=== PATIENT | male | born 1985 | race Caucasian/White ===

== ENCOUNTER 2016-08-22 13:08 | Emergency (ER) | payer OTHER ==
[2016-08-22 13:57] VITALS: BP 125/74
--- NOTE | 2016-08-22 14:27 | UC ---
FLU HPI - History of Current Complaint Chief Complaint: UCGeneralIllness Stated Complaint: FEVER,VOMITING Time Seen by Provider: 08/22/16 14:03 Hx Obtained From: Patient, Family/Teletypewriter Operator Onset/Duration: Gradual Onset - has had cough and fever for 2 days, vomited after dinner last bernie. is keeping gatorade down, not eating since lkast bernie. NO longer nauseous, but still coughing - Allergy/Home Medications Allergies/Adverse Reactions: Allergies Allergy/AdvReac Type Severity Reaction Status Date / Time Carbamazepine [From Tegretol] Allergy Unknown Unknown Verified 08/22/16 13:46 Reaction Details Diazepam [From Valium] Allergy Unknown Unknown Verified 08/16/15 13:07 Reaction Details Phenobarbital Allergy Unknown Unknown Verified 08/16/15 13:07 Reaction Details Phenytoin [From Dilantin] Allergy Unknown Unknown Verified 08/16/15 13:07 Reaction Details Home Medications: Home Medications Guaifenesin-Codeine [Coditussin AC 200-10 mg/5Ml] 08/22/16 [History] Proair Hfa 08/22/16 [History] Topiramate TAB(*) [Topamax 100 MG(*)] 100 mg PO BID 08/22/16 [History Confirmed 08/22/16] PMH/Surg Hx/FS Hx/Imm Hx Previously Healthy: Yes Endocrine History Of: Denies: Diabetes, Thyroid Disease Cardiovascular History Of: Denies: Cardiac Disorders, Hypertension, Pacemaker/ICD Respiratory History Of: Reports: COPD, Asthma, Bronchitis - 04/01/15 GI/ History Of: Denies: Ulcer Neurological History Of: Reports: Seizures - Surgical History Surgical History: Yes Surgery Procedure, Year, and Place: RIGHT ELBOW fracture repair - Family History Known Family History: Positive: None - Social History Occupation: Disabled Lives: With Family - aunt Alcohol Use: Occasionally Alcohol Amount: few times per month Substance Use Type: Marijuana Smoking Status (MU): Current Every Day Smoker Type: Cigarettes Amount Used/How Often: 1-2 PPD Length of Time of Smoking/Using Tobacco: 15 years Have You Smoked in the Last Year: Yes Cessation Counseling: Patient Advised to Stop - Immunization History Most Recent Influenza Vaccination: 2016 Most Recent Tetanus Shot: unknown Most Recent Pneumonia Vaccination: none Review of Systems Constitutional: Fever Skin: Negative ENT: Negative Respiratory: Cough Cardiovascular: Negative Gastrointestinal: Vomiting Neurovascular: Negative Musculoskeletal: Negative Neurological: Negative Psychological: Negative All Other Systems Reviewed And Are Negative: Yes Physical Exam Triage Information Reviewed: Yes Appearance: Well-Appearing, No Pain Distress, Well-Nourished Vital Signs: Initial Vital Signs Temp 100.5 F 08/22/16 13:48 Pulse 124 08/22/16 13:48 Resp 16 08/22/16 13:48 BP 125/74 08/22/16 13:48 Pulse Ox 100 08/22/16 13:48 Eyes: Positive: Conjunctiva Clear Neck exam: Normal Neck: Positive: No Lymphadenopathy Respiratory: Positive: No respiratory distress, Crackles, Wheezing - mild exp scattered wheezing productive cough Cardiovascular Exam: Normal Abdominal Exam: Normal Abdomen Description: Positive: Nontender, No Organomegaly, Soft Bowel Sounds: Positive: Present Neurological Exam: Normal Neurological: Positive: Alert Psychological Exam: Normal Skin Exam: Normal Flu Course/Dx - Differential Dx/Diagnosis Differential Diagnosis/HQI/PQRI: Bronchitis, Influenza, Pneumonia, Upper Respiratory Infection Provider Diagnoses: bronchitis Discharge - Discharge Plan Condition: Stable Disposition: HOME Prescriptions: Azithromycin TAB* [Zithromax TAB (Z-LÓPEZ) 250 mg #6 tabs] 250 mg PO DAILY #6 tab Guaifenesin-Codeine [Cheratussin AC 100-10 mg/5Ml] 1 teasp PO Q6HR PRN #120 ml MDD 20 ml PRN Reason: Cough Patient Education Materials: Acute Bronchitis (ED) Referrals: Butch Reyes MD [Primary Care Provider] - 2 Days (for recheck) Additional Instructions: use ventolin inhaler: 2 puffs 4 times a day Use flovent inhaler as directed Take zithromax antibiotic as prescribed Use tylenol 1000mg every 6 hours as needed for fever stay on bland diet today and drink plenty of fluids return here or ER if problems worsen at any time
== END 2016-08-22 15:28 | disposition home or self-care (01) ==
LOC: UCEAST 13:08
DX: J40 Bronchitis, not specified as acute or chronic (principal); Z88.8 Allergy status to other drugs, medicaments and biological substances; F17.210 Nicotine dependence, cigarettes, uncomplicated
CPT/HCPCS: 87502; 99202; G0463

== ENCOUNTER 2016-08-26 15:18 | Emergency (ER) | payer OTHER ==
[2016-08-26] MEDS: NS 0.9% 1000 ML* 2,000 ML IV ONE ×2 (17:34→19:02)
[2016-08-26 19:28] LABS: Hematocrit 40 % (42-52); Hemoglobin 13.2 g/dl (14.0-18.0); Mean Corpuscular HGB Conc 33 g/dl (31-36); Mean Corpuscular Hemoglobin 30 pg (27-31); Mean Corpuscular Volume 90 fL (80-94); Mean Platelet Volume 9 um3 (7.4-10.4); Red Blood Count 4.39 10^6/ul (4.0-5.4); Red Cell Distribution Width 15 % (10.5-15); White Blood Count 7.1 10^3/ul (3.5-10.8)
[2016-08-26 19:38] LABS: Albumin 3.7 g/dL (3.2-5.2); BUN/Creatinine Ratio 22.5 (8-20); Calcium 9.2 mg/dL (8.6-10.3); EGFR African American 164.3 (>60); EGFR Non-African American 127.8 (>60); Globulin 3.9 g/dL (2-4); Total Bilirubin 0.3 mg/dL (0.2-1.0); Total Protein 7.6 g/dL (6.4-8.9)
--- NOTE | 2016-08-26 19:43 | ED ---
Complex/Multi-Sys Presentation - HPI Summary HPI Summary: Patient is referred to the ED for evaluation after lab work done at his PCP's office revealed hyponatremia and elevated depakote levels. He is accompanied by his caregiver who share in the report of his history. He has been taking antibiotics for bronchitis for four days. He has a history of hyponatremia. He is asymptomatic without dizziness, fever, DON[place]UE, N/V/D. - History Of Current Complaint Chief Complaint: EDGeneral Time Seen by Provider: 08/26/16 16:37 Hx Obtained From: Patient, Family/Thread Spooler Onset/Duration: Gradual Onset Timing: Constant Severity Currently: None Severity Initially: Mild Associated Signs And Symptoms: Positive: Recent Medication Changes - his dosing is being adjusted and monitored by his PCP - Allergies/Home Medications Allergies/Adverse Reactions: Allergies Allergy/AdvReac Type Severity Reaction Status Date / Time Carbamazepine [From Tegretol] Allergy Unknown Unknown Verified 08/22/16 13:46 Reaction Details Diazepam [From Valium] Allergy Unknown Unknown Verified 08/16/15 13:07 Reaction Details Phenobarbital Allergy Unknown Unknown Verified 08/16/15 13:07 Reaction Details Phenytoin [From Dilantin] Allergy Unknown Unknown Verified 08/16/15 13:07 Reaction Details PMH/Surg Hx/FS Hx/Imm Hx Endocrine/Hematology History: Denies: Hx Diabetes, Hx Thyroid Disease Cardiovascular History: Denies: Hx Hypertension, Hx Pacemaker/ICD Respiratory History: Reports: Hx Asthma, Hx Chronic Obstructive Pulmonary Disease (COPD) GI History: Denies: Hx Ulcer Sensory History: Denies: Hx Hearing Aid Neurological History: Reports: Hx Headaches, Hx Seizures Psychiatric History: Denies: Hx Panic Disorder - Surgical History Surgery Procedure, Year, and Place: RIGHT ELBOW fracture repair Infectious Disease History: No Infectious Disease History: Denies: Hx Clostridium Difficile, Hx Hepatitis, Hx Human Immunodeficiency Virus (HIV), Traveled Outside the [place] in Last 30 Days - Family History Known Family History: Positive: None - Social History Occupation: Disabled Lives: [place] Alcohol Use: Occasionally Alcohol Amount: few times per month Substance Use Type: Reports: Marijuana Hx Tobacco Use: Yes Smoking Status (MU): Current Every Day Smoker Type: Cigarettes Amount Used/How Often: 1-2 PPD Length of Time of Smoking/Using Tobacco: 15 years Have You Smoked in the Last Year: Yes Cessation Counseling: Patient Advised to Stop Review of Systems All Other Systems Reviewed And Are Negative: Yes Physical Exam Triage Information Reviewed: Yes Vital Signs On Initial Exam: Initial Vitals Temp Pulse Resp BP Pulse Ox 98.1 F 97 20 115/75 98 08/26/16 15:20 08/26/16 15:20 08/26/16 15:20 08/26/16 15:20 08/26/16 15:20 Vital Signs Reviewed: Yes Appearance: Positive: Well-Appearing, No Pain Distress, Thin Skin: Positive: Warm, Skin Color Reflects Adequate Perfusion, Dry, Soft Head/Face: Positive: Normal Head/Face Inspection Eyes: Positive: EOMI, MASOUD, Conjunctiva Clear ENT: Positive: Hearing grossly normal, Pharynx normal Neck: Positive: Supple, Nontender, No Lymphadenopathy Respiratory/Lung Sounds: Positive: Clear to Auscultation, Breath Sounds Present Cardiovascular: Positive: RRR Abdomen Description: Positive: Nontender, Soft Bowel Sounds: Positive: Present Musculoskeletal: Negative: Edema Left, Edema Right Neurological: Positive: Sensory/Motor Intact, Alert, Oriented to Person Place, Time, NV Bundle Intact Distally, Normal Gait Psychiatric: Positive: Affect/Mood Appropriate AVPU Assessment: Alert Diagnostics - Vital Signs Vital Signs Temp Pulse Resp BP Pulse Ox 08/26/16 15:20 98.1 F 97 20 115/75 98 - Laboratory Lab Results: Lab Results 08/26/16 Range/Units 16:48 WBC 7.1 (3.5-10.8) 10^3/ul RBC 4.39 (4.0-5.4) 10^6/ul Hgb 13.2 L (14.0-18.0) g/dl Hct 40 L (42-52) % MCV 90 (80-94) fL MCH 30 (27-31) pg MCHC 33 (31-36) g/dl RDW 15 (10.5-15) % Plt Count 204 (150-450) 10^3/ul MPV 9 (7.4-10.4) um3 Neut % (Auto) 81.0 (38-83) % Lymph % (Auto) 6.4 L (25-47) % [place] % (Auto) 12.3 H (1-9) % Eos % (Auto) 0 (0-6) % Baso % (Auto) 0.3 (0-2) % Absolute Neuts (auto) 5.7 (1.5-7.7) 10^3/ul Absolute Lymphs (auto) 0.4 L (1.0-4.8) 10^3/ul Absolute Monos (auto) 0.9 H (0-0.8) 10^3/ul Absolute Eos (auto) 0 (0-0.6) 10^3/ul Absolute Basos (auto) 0 (0-0.2) 10^3/ul Absolute Nucleated RBC 0 10^3/ul Nucleated RBC % 0.1 Result Diagrams: 08/26/16 16:48 08/26/16 16:48 Lab Statement: Any lab studies that have been ordered have been reviewed, and results considered in the medical decision making process. Re-Evaluation - Re-Evaluation First Eval Change: Improved - patient's lab values have trended more towards normal with repeat testing. Complex Multi-Symp Course/Dx Course Of Treatment: After discussion with Dr. Sinclair, ED attending, the patient will hold his evening dose of depakote and follow-up with his PCP tomorrow for evaluation. - Diagnoses Differential Diagnoses/HQI/PQRI: Metabolic Abnormality, Sepsis, Other Provider Diagnoses: Hyponatremia Discharge - Discharge Plan Condition: Stable Disposition: HOME Patient Education Materials: Hyponatremia (ED) Referrals: Butch Reyes MD [Primary Care Provider] - Additional Instructions: Please hold one dose of your depakote and follow-up with your primary care provider tomorrow for evaluation. Drink fluids with electrolytes and continue using your antibiotics as prescribed. Return to the emergency department if your symptoms worsen..
[2016-08-27 07:06] VITALS: BP 117/65
== END 2016-08-26 20:25 | disposition home or self-care (01) ==
LOC: ED 15:18
DX: E87.1 Hypo-osmolality and hyponatremia (principal); F17.210 Nicotine dependence, cigarettes, uncomplicated
CPT/HCPCS: 36415; 80053; 80164; 85025; 99282

== ENCOUNTER 2017-01-30 09:52 | Emergency (ER) | payer MEDICARE, MEDICAID ==
--- NOTE | 2017-01-30 10:56 | ED ---
Seizure - HPI Summary HPI Summary: Patient presents to the ED with CC of unwitnessed seizure this morning. He denies hitting his head. He notes to small bout of confusion following, but feels OK now. He is unaware how long the seizure lasted but states they usually last seconds to minutes. He was found on the floor by his partner. He denies pain, confusion, N/V or memory loss. He has a history of seizures, diagnosed as both tonic-clonic, grand mal. He takes depakote 500mg in the am, 1000mg in the pm and lamictal 500mg BID daily. He has not missed any dosage of medications. Last seizure was over 1 month ago and was "small" and lasted a few seconds. States he has felt "off" the last few days, but this has dissipated and feels fine now. Has not had his depakote level checked in awhile. Denies PO intake today. Denies chest pain, SOB and denies any other significant medical history. - History Of Current Complaint Chief Complaint: EDSeizure Time Seen by Provider: 01/30/17 10:17 Hx Obtained From: Patient, Family/Embedded Firmware Engineer Onset/Duration: Sudden Onset Severity Of Seizure: Self-Limited Character: Other - unable to identify Aggravating Factor(s): Nothing Alleviating Factor(s): Spontaneous Resolution Associated Signs And Symptoms: Negative Related History: Medication Compliant - Risk Factors SAH Risk Factors: Negative Meningitis Risk Factors: Negative SDH Risk Factor: Seizures - Allergies/Home Medications Allergies/Adverse Reactions: Allergies Allergy/AdvReac Type Severity Reaction Status Date / Time Carbamazepine [From Tegretol] Allergy Unknown Unknown Verified 08/22/16 13:46 Reaction Details Diazepam [From Valium] Allergy Unknown Unknown Verified 08/16/15 13:07 Reaction Details Phenobarbital Allergy Unknown Unknown Verified 08/16/15 13:07 Reaction Details Phenytoin [From Dilantin] Allergy Unknown Unknown Verified 08/16/15 13:07 Reaction Details PMH/Surg Hx/FS Hx/Imm Hx Previously Healthy: Yes Endocrine/Hematology History: Denies: Hx Diabetes, Hx Thyroid Disease Cardiovascular History: Denies: Hx Hypertension, Hx Pacemaker/ICD Respiratory History: Reports: Hx Asthma, Hx Chronic Obstructive Pulmonary Disease (COPD) GI History: Denies: Hx Ulcer Neurological History: Reports: Hx Headaches, Hx Seizures Psychiatric History: Denies: Hx Panic Disorder - Surgical History Surgery Procedure, Year, and Place: RIGHT ELBOW fracture repair - Immunization History Hx Pertussis Vaccination: No Immunizations Up to Date: Unable to Obtain/Confirm Infectious Disease History: No Infectious Disease History: Denies: Hx Clostridium Difficile, Hx Hepatitis, Hx Human Immunodeficiency Virus (HIV), Traveled Outside the [place] in Last 30 Days - Family History Known Family History: Positive: None - Social History Occupation: Employed Full-time Lives: With Family Alcohol Use: Occasionally Alcohol Amount: few times per month Hx Substance Use: Yes Substance Use Type: Reports: Marijuana Hx Tobacco Use: Yes Smoking Status (MU): Current Every Day Smoker Type: Cigarettes Amount Used/How Often: 1-2 PPD Length of Time of Smoking/Using Tobacco: 15 years Have You Smoked in the Last Year: Yes Review of Systems Constitutional: Negative Eyes: Negative Cardiovascular: Negative Respiratory: Negative Positive: no symptoms reported, see HPI Musculoskeletal: Negative Skin: Negative Neurological: Negative All Other Systems Reviewed And Are Negative: Yes Physical Exam Triage Information Reviewed: Yes Vital Signs On Initial Exam: Initial Vitals Temp Pulse Resp BP Pulse Ox 97.7 F 100 18 134/79 98 01/30/17 09:54 01/30/17 09:54 01/30/17 09:54 01/30/17 09:54 01/30/17 09:54 Vital Signs Reviewed: Yes Appearance: Positive: Well-Appearing, Well-Nourished Skin: Positive: Warm, Skin Color Reflects Adequate Perfusion Head/Face: Positive: Normal Head/Face Inspection Eyes: Positive: Normal, MASOUD, Conjunctiva Clear ENT: Positive: Normal ENT inspection, Hearing grossly normal, Pharynx normal Neck: Positive: Supple, No Lymphadenopathy Respiratory/Lung Sounds: Positive: Clear to Auscultation, Breath Sounds Present Cardiovascular: Positive: Normal, RRR, Pulses are Symmetrical in both Upper and Lower Extremities Musculoskeletal: Positive: Normal, Strength/ROM Intact Neurological: Positive: Normal, Alert, Oriented to Person Place, Time Psychiatric: Positive: Normal AVPU Assessment: Alert - [place] Coma Scale Coma Scale Total: 15 Diagnostics - Vital Signs Vital Signs Temp Pulse Resp BP Pulse Ox 01/30/17 10:30 86 114/93 99 01/30/17 10:15 80 100 01/30/17 10:14 97.7 F 100 20 134/79 98 01/30/17 10:13 118/86 01/30/17 09:54 97.7 F 100 18 134/79 98 - Laboratory Result Diagrams: 01/30/17 11:00 01/30/17 11:00 Lab Statement: Any lab studies that have been ordered have been reviewed, and results considered in the medical decision making process. Course/Dx - Course Course Of Treatment: Labs drawn including depakote level. Depakote level is elevated at 143. Hyponatremia at 127. This is chronic. He states he is sent here often for hyponatremia and they usually provide hypertonic saline for correction, however his levels have been chronically low for years and is followed by Dr. Reyes. He has not seen him in several months. Partner states he has been acting more paranoid lately. I have discussed following up with his PCP on this, as I am unaware of his baseline. He is encouraged to stop one dose of depakote (this was his previous treatment) for elevated levels, and call his doctor tomorrow for appt and discuss any possible medication changes as well as follow up on any treatment for hyponatremia. Medications were reveiwed with patient. Encouarged to follow up with PCP or return to ED for worsening symptoms. Return precautions given. Patient understands and agrees with plan. Ok for discharge. - Diagnoses Differential Diagnosis/HQI/PQRI: Positive: Drug Toxicity, Drug Withdrawal, Metabolic Disorder, Known Seizure Disorder Provider Diagnoses: Seizure, Hyponatremia Discharge - Discharge Plan Condition: Stable Disposition: HOME Patient Education Materials: Hyponatremia (ED), Recurrent Seizures in Adults ( ED) Referrals: Butch Reyes MD [Primary Care Provider] - Additional Instructions: Follow up with Dr. Reyes to correct hyponatremia (low sodium) Depakote level is high today. Hold off on Depakote this evening and call PCP tomorrow. For any worsening symptoms, return to ED immediately.
[2017-01-30 11:18] LABS: Hematocrit 43 % (42-52); Hemoglobin 14.2 g/dl (14.0-18.0); Mean Corpuscular HGB Conc 33 g/dl (31-36); Mean Corpuscular Hemoglobin 30 pg (27-31); Mean Corpuscular Volume 91 fL (80-94); Mean Platelet Volume 8 um3 (7.4-10.4); Red Blood Count 4.78 10^6/ul (4.0-5.4); Red Cell Distribution Width 15 % (10.5-15); White Blood Count 6.6 10^3/ul (3.5-10.8)
[2017-01-30 11:29] LABS: Albumin 4.2 g/dL (3.2-5.2); BUN/Creatinine Ratio 12.3 (8-20); Calcium 9.8 mg/dL (8.6-10.3); EGFR African American 211.7 (>60); EGFR Non-African American 164.6 (>60); Magnesium 2.1 mg/dL (1.9-2.7); Potassium 3.8 mmol/L (3.5-5.0); Total Bilirubin 0.4 mg/dL (0.2-1.0); Total Protein 8.2 g/dL (6.4-8.9)
[2017-01-30 13:16] VITALS: BP 130/82
== END 2017-01-30 13:20 | disposition home or self-care (01) ==
LOC: ED 09:52
DX: G40.909 Epilepsy, unspecified, not intractable, without status epilepticus (principal); E87.1 Hypo-osmolality and hyponatremia; J44.9 Chronic obstructive pulmonary disease, unspecified; F12.90 Cannabis use, unspecified, uncomplicated; F17.210 Nicotine dependence, cigarettes, uncomplicated
CPT/HCPCS: 36415; 80053; 80164; 82550; 83605; 83735; 85025; 93005; 99284

== ENCOUNTER → 2017-02-05 14:15 | Emergency (ER) | payer MEDICARE, MEDICAID ==
[~2017-02-05 14:15] MED LIST: Divalproex ER TAB(*) 500 MG ONE; Topiramate TAB(*) 100 MG ONE
[2017-02-05 14:28] VITALS: BP 128/80
--- NOTE | 2017-02-06 04:50 | EEG ---
ELECTROENCEPHALOGRAPHY: DATE OF STUDY / DICTATION: 02/05/17 - EMERGENCY DEPT PATIENT OF: Dr. Couch and Dr. Reyes.* CLINICAL PROBLEM: This is a 31-year-old man being evaluated for odd behavior and seizures as well as auditory hallucinations. MEDICATIONS: Include: 1. Depakote. 2. Topamax. 3. Alprazolam. REPORT: With the patient awake, background cerebral activity consists of moderate amplitude posterior dominant 8 Hz rhythm, which attenuates with eye opening and reappears with eye closure. There is occasional slowing into the theta range, but the patient never falls fully asleep. No activation procedures are performed. No epileptiform potentials, focal abnormalities, or major asymmetries of background are noted. CLINICAL IMPRESSION: This awake EEG is within normal limits. [id number]/[facility] #: [id number] [facility] CENTERThomas
== END | disposition home or self-care (01) ==
LOC: ED 14:15
DX: R56.9 Unspecified convulsions (principal); Z53.21 Procedure and treatment not carried out due to patient leaving prior to being seen by health care provider
CPT/HCPCS: 95816; A9270-GY

== ENCOUNTER 2017-02-11 19:16 | Emergency (ER) | payer MEDICARE, MEDICAID ==
--- NOTE | 2017-02-11 20:29 | RAD ---
INDICATION: Seizure, confusion. COMPARISON: Comparison is made with prior CT of the brain from February 03, 2017. TECHNIQUE: Contiguous axial sections of the brain were obtained from the skull base to the vertex without contrast. FINDINGS: The ventricles, cisterns and sulci are within normal limits. No significant focal abnormality or mass effect is seen. There is no evidence for hemorrhage. No significant focal osseous abnormality is seen. The visualized portion of the paranasal sinuses and mastoid air cells appear clear. IMPRESSION: NO EVIDENCE FOR ACUTE INTRACRANIAL ABNORMALITY.
[2017-02-11 20:58] LABS: ALT 8 U/L (7-52); Albumin 4.1 g/dL (3.2-5.2); Alkaline Phosphatase 73 U/L (34-104); BUN/Creatinine Ratio 15.3 (8-20); Blood Urea Nitrogen 11 mg/dL (6-24); CO2 Carbon Dioxide 23 mmol/L (22-32); Calcium 9.4 mg/dL (8.6-10.3); Chloride 102 mmol/L (101-111); Creatine Kinase 93 U/L (10-223); EGFR African American 161.7 (>60); EGFR Non-African American 125.7 (>60); Globulin 4.2 g/dL (2-4); Glucose 72 mg/dL (70-100); Sodium 132 mmol/L (133-145); Total Protein 8.3 g/dL (6.4-8.9)
[2017-02-11 21:01] LABS: Anion Gap 7 mmol/L (2-11)
[2017-02-11 21:05] LABS: Acetaminophen < 15 mcg/mL; Alcohol < 10 mg/dL (<10); Salicylate < 2.50 mg/dL (<30)
[2017-02-11 21:16] LABS: TSH (Thyroid Stimulating Horm) 2.56 mcIU/mL (0.34-5.60)
[2017-02-11 21:19] LABS: Hematocrit 39 % (42-52); Hemoglobin 12.8 g/dl (14.0-18.0); Mean Corpuscular HGB Conc 33 g/dl (31-36); Mean Corpuscular Hemoglobin 29 pg (27-31); Mean Corpuscular Volume 89 fL (80-94); Mean Platelet Volume 8 um3 (7.4-10.4); Red Blood Count 4.38 10^6/ul (4.0-5.4); Red Cell Distribution Width 15 % (10.5-15); White Blood Count 8.2 10^3/ul (3.5-10.8)
[2017-02-11 22:14] LABS: Urine Bilirubin Negative (Negative); Urine Glucose Negative (Negative); Urine Nitrite Negative (Negative)
[2017-02-11 22:26] LABS: Benzodiazepine Urine Screen None Detected (None Detect)
[2017-02-11] MEDS ORDERED: Calcium Carbonate CHEW TAB* 500 MG (TUMS) PO ONE (22:33)
[2017-02-12] MEDS ORDERED: Valproic Acid CAP(*) 250 MG PO ONE (00:53)
[2017-02-12] MEDS ORDERED: Topiramate TAB(*) 100 MG PO ONE (00:54)
[2017-02-12] MEDS ORDERED: Topiramate TAB(*) 25 MG PO ONE (00:54)
[2017-02-12] MEDS ORDERED: Divalproex ER TAB(*) 500 MG PO ONE (01:25)
--- NOTE | 2017-02-12 02:56 | ED ---
Cass Palmer Alfonso, scribed for Elpidio Zeng on 02/11/17 at 1959 . Altered Mental Status - HPI Summary HPI Summary: This patient is a 31 year old M presenting to [facility] accompanied by aunt with a chief complaint of hearing voices since two weeks ago. His aunt states he is hearing me on the phone when Im not there. The aunt is concerned with recent changes in his epilepsy medications. The patient rates the pain 0/10 in severity. Symptoms alleviated by nothing. Patient reports paranoia (people are out to get him). Patient denies CP, SOB, SI, and HI. Occasional marijuana use. PMHx of epilepsy. Patient medically cleared for MHE at 2205. - History Of Current Complaint Chief Complaint: EDAltMentalStatus Stated Complaint: MHE Time Seen by Provider: 02/11/17 19:37 Hx Obtained From: Patient, Family/Driver Guard - Aunt Onset/Duration: Still Present Timing: Lasting Weeks - 2 Severity Initially: Moderate Severity Currently: Moderate Alleviating Factor(s): Nothing Associated Signs And Symptoms: Positive: Negative - Allergies/Home Medications Allergies/Adverse Reactions: Allergies Allergy/AdvReac Type Severity Reaction Status Date / Time Carbamazepine [From Tegretol] Allergy Unknown Unknown Verified 02/11/17 19:23 Reaction Details Diazepam [From Valium] Allergy Unknown Unknown Verified 02/11/17 19:23 Reaction Details Phenobarbital Allergy Unknown Unknown Verified 02/11/17 19:23 Reaction Details Phenytoin [From Dilantin] Allergy Unknown Unknown Verified 02/11/17 19:23 Reaction Details Quetiapine [From Seroquel] Allergy Hives Verified 02/11/17 19:23 PMH/Surg Hx/FS Hx/Imm Hx Endocrine/Hematology History: Denies: Hx Diabetes, Hx Thyroid Disease Cardiovascular History: Denies: Hx Hypertension, Hx Pacemaker/ICD Respiratory History: Reports: Hx Asthma, Hx Chronic Obstructive Pulmonary Disease (COPD) GI History: Denies: Hx Ulcer Neurological History: Reports: Hx Headaches, Hx Seizures, Other Neuro Impairments/Disorders - epilepsy Psychiatric History: Denies: Hx Panic Disorder - Surgical History Surgery Procedure, Year, and Place: RIGHT ELBOW fracture repair Infectious Disease History: Denies: Hx Clostridium Difficile, Hx Hepatitis, Hx Human Immunodeficiency Virus (HIV), Traveled Outside the [place] in Last 30 Days - Family History Known Family History: Positive: Other - Epilepsy in father - Social History Alcohol Use: Occasionally Alcohol Amount: few times per month Hx Substance Use: Yes Substance Use Type: Reports: Marijuana Hx Tobacco Use: Yes Smoking Status (MU): Current Every Day Smoker Type: Cigarettes Amount Used/How Often: 1-2 PPD Length of Time of Smoking/Using Tobacco: 15 years Have You Smoked in the Last Year: Yes Review of Systems Negative: Chest Pain Negative: Shortness Of Breath Psychological: Other - Positive hearing voices, paranoia; negative SI and HI. All Other Systems Reviewed And Are Negative: Yes Physical Exam Triage Information Reviewed: Yes Vital Signs On Initial Exam: Initial Vitals Temp Pulse Resp BP Pulse Ox 99.1 F 126 18 129/92 98 02/11/17 19:19 02/11/17 19:19 02/11/17 19:19 02/11/17 19:19 02/11/17 19:19 Vital Signs Reviewed: Yes Appearance: Positive: Well-Appearing, No Pain Distress Skin: Positive: Warm, Skin Color Reflects Adequate Perfusion, Dry Head/Face: Positive: Normal Head/Face Inspection Eyes: Positive: EOMI, MASOUD ENT: Positive: Normal ENT inspection Neck: Positive: Supple, Nontender Cardiovascular: Positive: RRR, Pulses are Symmetrical in both Upper and Lower Extremities Abdomen Description: Positive: Nontender, Soft Bowel Sounds: Positive: Present Musculoskeletal: Positive: Normal, Strength/ROM Intact Neurological: Positive: Normal, Sensory/Motor Intact, Alert, Oriented to Person Place, Time - Ben Coma Scale Best Eye Response: 4 - Spontaneous Best Motor Response: 6 - Obeys Commands Best Verbal Response: 5 - Oriented Glascow Coma Scale Comments: Diagnostics - Vital Signs Vital Signs Temp Pulse Resp BP Pulse Ox 02/11/17 19:24 99.1 F 126 18 129/92 98 02/11/17 19:19 99.1 F 126 18 129/92 98 - Laboratory Lab Results: Lab Results 02/11/17 02/11/17 02/11/17 Range/Units 20:27 21:12 21:12 WBC 8.2 (3.5-10.8) 10^3/ul RBC 4.38 (4.0-5.4) 10^6/ul Hgb 12.8 L (14.0-18.0) g/dl Hct 39 L (42-52) % MCV 89 (80-94) fL MCH 29 (27-31) pg MCHC 33 (31-36) g/dl RDW 15 (10.5-15) % Plt Count 596 H D (150-450) 10^3/ul MPV 8 (7.4-10.4) um3 Neut % (Auto) 73.3 (38-83) % Lymph % (Auto) 13.3 L (25-47) % [place] % (Auto) 10.7 H (1-9) % Eos % (Auto) 0.4 (0-6) % Baso % (Auto) 2.3 H (0-2) % Absolute Neuts (auto) 6.3 (1.5-7.7) 10^3/ul Absolute Lymphs (auto) 1.1 (1.0-4.8) 10^3/ul Absolute Monos (auto) 0.9 H (0-0.8) 10^3/ul Absolute Eos (auto) 0 (0-0.6) 10^3/ul Absolute Basos (auto) 0.2 (0-0.2) 10^3/ul Absolute Nucleated RBC 0 10^3/ul Nucleated RBC % 0 Sodium 132 L (133-145) mmol/L Potassium TNP 4.2 Chloride 102 (101-111) mmol/L Carbon Dioxide 23 (22-32) mmol/L Anion Gap 7 (2-11) mmol/L BUN 11 (6-24) mg/dL Creatinine 0.72 (0.67-1.17) mg/dL Est GFR ( Amer) 161.7 (>60) Est GFR (Non-Af Amer) 125.7 (>60) BUN/Creatinine Ratio 15.3 (8-20) Glucose 72 (70-100) mg/dL Calcium 9.4 (8.6-10.3) mg/dL Total Bilirubin 0.40 (0.2-1.0) mg/dL AST TNP 12 L ALT 8 (7-52) U/L Alkaline Phosphatase 73 (34-104) U/L Total Creatine Kinase 93 (10-223) U/L Total Protein 8.3 (6.4-8.9) g/dL Albumin 4.1 (3.2-5.2) g/dL Globulin 4.2 H (2-4) g/dL Albumin/Globulin Ratio 1.0 (1-3) TSH 2.56 (0.34-5.60) mcIU/mL Urine Color Urine Appearance Urine pH (5-9) Ur Specific [place] (1.010-1.030) Urine Protein (Negative) Urine Ketones (Negative) Urine Blood (Negative) Urine Nitrate (Negative) Urine Bilirubin (Negative) Urine Urobilinogen (Negative) Ur Leukocyte Esterase (Negative) Urine Glucose (Negative) Salicylates < 2.50 (<30) mg/dL Urine Opiates Screen (None Detect) Acetaminophen < 15 mcg/mL Ur Barbiturates Screen (None Detect) Valproic Acid 100.0 (50-100) mcg/mL Ur Phencyclidine Scrn (None Detect) Ur Amphetamines Screen (None Detect) U Benzodiazepines Scrn (None Detect) Urine Cocaine Screen (None Detect) U Cannabinoids Screen (None Detect) Serum Alcohol < 10 (<10) mg/dL 02/11/17 02/11/17 Range/Units 22:05 22:05 WBC (3.5-10.8) 10^3/ul RBC (4.0-5.4) 10^6/ul Hgb (14.0-18.0) g/dl Hct (42-52) % MCV (80-94) fL MCH (27-31) pg MCHC (31-36) g/dl RDW (10.5-15) % Plt Count (150-450) 10^3/ul MPV (7.4-10.4) um3 Neut % (Auto) (38-83) % Lymph % (Auto) (25-47) % [place] % (Auto) (1-9) % Eos % (Auto) (0-6) % Baso % (Auto) (0-2) % Absolute Neuts (auto) (1.5-7.7) 10^3/ul Absolute Lymphs (auto) (1.0-4.8) 10^3/ul Absolute Monos (auto) (0-0.8) 10^3/ul Absolute Eos (auto) (0-0.6) 10^3/ul Absolute Basos (auto) (0-0.2) 10^3/ul Absolute Nucleated RBC 10^3/ul Nucleated RBC % Sodium (133-145) mmol/L Potassium Chloride (101-111) mmol/L Carbon Dioxide (22-32) mmol/L Anion Gap (2-11) mmol/L BUN (6-24) mg/dL Creatinine (0.67-1.17) mg/dL Est GFR ( Amer) (>60) Est GFR (Non-Af Amer) (>60) BUN/Creatinine Ratio (8-20) Glucose (70-100) mg/dL Calcium (8.6-10.3) mg/dL Total Bilirubin (0.2-1.0) mg/dL AST ALT (7-52) U/L Alkaline Phosphatase (34-104) U/L Total Creatine Kinase (10-223) U/L Total Protein (6.4-8.9) g/dL Albumin (3.2-5.2) g/dL Globulin (2-4) g/dL Albumin/Globulin Ratio (1-3) TSH (0.34-5.60) mcIU/mL Urine Color [place] Urine Appearance Turbid Urine pH 8.0 (5-9) Ur Specific [place] 1.015 (1.010-1.030) Urine Protein Negative (Negative) Urine Ketones Negative (Negative) Urine Blood Negative (Negative) Urine Nitrate Negative (Negative) Urine Bilirubin Negative (Negative) Urine Urobilinogen Negative (Negative) Ur Leukocyte Esterase Negative (Negative) Urine Glucose Negative (Negative) Salicylates (<30) mg/dL Urine Opiates Screen None detected (None Detect) Acetaminophen mcg/mL Ur Barbiturates Screen None detected (None Detect) Valproic Acid (50-100) mcg/mL Ur Phencyclidine Scrn None detected (None Detect) Ur Amphetamines Screen None detected (None Detect) U Benzodiazepines Scrn None detected (None Detect) Urine Cocaine Screen None detected (None Detect) U Cannabinoids Screen Presumptive positive H (None Detect) Serum Alcohol (<10) mg/dL Result Diagrams: 02/11/17 21:12 02/11/17 21:12 Lab Statement: Any lab studies that have been ordered have been reviewed, and results considered in the medical decision making process. - CT Brain CT Interpretation Completed By: Radiologist - NO EVIDENCE FOR ACUTE INTRACRANIAL ABNORMALITY. Altered Mental Statu Course/Dx - Course Course Of Treatment: This patient is a 31 year old M presenting to [facility] accompanied by aunt with a chief complaint of hearing voices since two weeks ago. His aunt states he is hearing me on the phone when Im not there. The aunt is concerned with recent changes in his epilepsy medications. The patient rates the pain 0/10 in severity. Symptoms alleviated by nothing. Patient reports paranoia (people are out to get him). Patient denies CP, SOB, SI, and HI. Occasional marijuana use. PMHx of epilepsy. A brain CT reveals NO EVIDENCE FOR ACUTE INTRACRANIAL ABNORMALITY. Patient medically cleared for MHE at 2205. After MHE, patient will be discharged home by psych with a diagnosis of depression, and seizures. - Diagnoses Discharge Diagnoses: Depression, Seizure Discharge - Discharge Plan Condition: Stable Disposition: HOME The documentation as recorded by the Cass inman Alfonso accurately reflects the service I personally performed and the decisions made by , Elpidio Zeng.
[2017-02-12 03:45] VITALS: BP 117/72
== END 2017-02-12 03:40 | disposition home or self-care (01) ==
LOC: ED 19:16
DX: F32.9 Major depressive disorder, single episode, unspecified (principal); R56.9 Unspecified convulsions; F17.210 Nicotine dependence, cigarettes, uncomplicated
CPT/HCPCS: 36415; 70450; 80053; 80164; 80307; 80320; 80329; 81003; 82550; 84443; 85025; 99283; A9270-GY; G0480

== ENCOUNTER 2017-02-27 17:52 | Emergency (ER) | payer MEDICARE, MEDICAID ==
[2017-02-27 18:29] LABS: Hematocrit 35 % (42-52); Hemoglobin 11.9 g/dl (14.0-18.0); Mean Corpuscular HGB Conc 34 g/dl (31-36); Mean Corpuscular Hemoglobin 30 pg (27-31); Mean Corpuscular Volume 88 fL (80-94); Mean Platelet Volume 7 um3 (7.4-10.4); Red Blood Count 3.98 10^6/ul (4.0-5.4); Red Cell Distribution Width 15 % (10.5-15); White Blood Count 7.3 10^3/ul (3.5-10.8)
[2017-02-27 18:59] LABS: ALT 6 U/L (7-52); AST 12 U/L (13-39); Alkaline Phosphatase 72 U/L (34-104); Anion Gap 7 mmol/L (2-11); BUN/Creatinine Ratio 12.7 (8-20); Blood Urea Nitrogen 9 mg/dL (6-24); CO2 Carbon Dioxide 20 mmol/L (22-32); Calcium 9.3 mg/dL (8.6-10.3); Chloride 108 mmol/L (101-111); EGFR African American 164.3 (>60); EGFR Non-African American 127.8 (>60); Globulin 3.6 g/dL (2-4); Glucose 126 mg/dL (70-100); Potassium 3.3 mmol/L (3.5-5.0); Sodium 135 mmol/L (133-145); Total Protein 7.6 g/dL (6.4-8.9)
[2017-02-27 19:07] LABS: Acetaminophen < 15 mcg/mL; Alcohol < 10 mg/dL (<10); Salicylate < 2.50 mg/dL (<30)
[2017-02-27 19:17] LABS: TSH (Thyroid Stimulating Horm) 1.03 mcIU/mL (0.34-5.60)
[2017-02-27] MEDS ORDERED: Potassium Chlor TAB* 20 MEQ TAB.ER PO ONE (19:20)
[2017-02-27 20:04] LABS: Urine Bilirubin Negative (Negative); Urine Glucose Negative (Negative); Urine Nitrite Negative (Negative)
[2017-02-27 20:25] LABS: Benzodiazepine Urine Screen None Detected (None Detect)
--- NOTE | 2017-02-27 23:09 | ED ---
Braulio Palmer SooYoung, scribed for Elpidio Zeng on 02/27/17 at 1807 . Psychiatric Complaint - HPI Summary HPI Summary: A 31 y/o M presents to ED with c/o ongoing auditory hallucinations. Associated sx: paranoia. Aunt states pt has only been having psychiatric sx for past few weeks but not prior in his life. He was seen last in ED for MHE on 02/11/17. Per Aunt, pt thinks bugs are all around himself. Pt states feeling OK and denies hearing voices at bedside. Denies pain, SI, HI. No PMHx: schizophrenia. Sees Dr. Couch, neuro. Recent medication changes. - History Of Current Complaint Chief Complaint: EDGeneral Time Seen by Provider: 02/27/17 18:00 Hx Obtained From: Patient, Family/Charging Machine Operator - aunt Onset/Duration: Still Present Timing: Constant Severity Initially: Moderate Severity Currently: Moderate Associated Signs And Symptoms: Positive: Hallucinating, Paranoid Behavior Has Suicidal: Denies: Thoughts Has Homicidal: Denies: Thoughts - Allergies/Home Medications Allergies/Adverse Reactions: Allergies Allergy/AdvReac Type Severity Reaction Status Date / Time Carbamazepine [From Tegretol] Allergy Unknown Unknown Verified 02/11/17 19:23 Reaction Details Diazepam [From Valium] Allergy Unknown Unknown Verified 02/11/17 19:23 Reaction Details Phenobarbital Allergy Unknown Unknown Verified 02/11/17 19:23 Reaction Details Phenytoin [From Dilantin] Allergy Unknown Unknown Verified 02/11/17 19:23 Reaction Details Alprazolam [From Xanax] Allergy Itching Verified 02/12/17 03:49 Quetiapine [From Seroquel] Allergy See Comment Verified 02/12/17 03:50 PMH/Surg Hx/FS Hx/Imm Hx Previously Healthy: No Endocrine/Hematology History: Denies: Hx Diabetes, Hx Thyroid Disease Cardiovascular History: Denies: Hx Hypertension, Hx Pacemaker/ICD Respiratory History: Reports: Hx Asthma, Hx Chronic Obstructive Pulmonary Disease (COPD) GI History: Denies: Hx Ulcer Neurological History: Reports: Hx Headaches, Hx Seizures, Other Neuro Impairments/Disorders - epilepsy Psychiatric History: Denies: Hx Panic Disorder, Hx Schizophrenia, Hx of Violent Episodes Against Others - Surgical History Surgery Procedure, Year, and Place: RIGHT ELBOW fracture repair Infectious Disease History: Denies: Hx Clostridium Difficile, Hx Hepatitis, Hx Human Immunodeficiency Virus (HIV), Traveled Outside the [place] in Last 30 Days - Family History Known Family History: Positive: Other - Epilepsy in father - Social History Occupation: Unemployed Lives: With Family Alcohol Use: Occasionally Alcohol Amount: few times per month Hx Substance Use: Yes Substance Use Type: Reports: Marijuana Hx Tobacco Use: Yes Smoking Status (MU): Current Every Day Smoker Type: Cigarettes Amount Used/How Often: 1-2 PPD Length of Time of Smoking/Using Tobacco: 15 years Have You Smoked in the Last Year: Yes Review of Systems Negative: Fever Positive: Other - neg: pain Psychological: Other - pos: paranoia, auditory hallucinations Positive: Other - neg: SI, HI All Other Systems Reviewed And Are Negative: Yes Physical Exam Triage Information Reviewed: Yes Vital Signs On Initial Exam: Initial Vitals Temp Pulse Resp BP Pulse Ox 98.8 F 101 20 123/82 99 02/27/17 17:54 02/27/17 17:54 02/27/17 17:54 02/27/17 17:54 02/27/17 17:54 Vital Signs Reviewed: Yes Appearance: Positive: Well-Appearing, No Pain Distress Skin: Positive: Warm, Skin Color Reflects Adequate Perfusion, Dry Head/Face: Positive: Normal Head/Face Inspection Eyes: Positive: EOMI, MASOUD ENT: Positive: Normal ENT inspection Neck: Positive: Supple, Nontender Respiratory/Lung Sounds: Positive: Clear to Auscultation, Breath Sounds Present Cardiovascular: Positive: RRR, Pulses are Symmetrical in both Upper and Lower Extremities Abdomen Description: Positive: Nontender, Soft Bowel Sounds: Positive: Present Musculoskeletal: Positive: Normal, Strength/ROM Intact Neurological: Positive: Normal, Sensory/Motor Intact, Alert, Oriented to Person Place, Time Psychiatric: Positive: Depressed Diagnostics - Vital Signs Vital Signs Temp Pulse Resp BP Pulse Ox 02/27/17 17:54 98.8 F 101 20 123/82 99 - Laboratory Lab Results: Lab Results 02/27/17 02/27/17 02/27/17 Range/Units 18:16 18:16 19:20 WBC 7.3 (3.5-10.8) 10^3/ul RBC 3.98 L (4.0-5.4) 10^6/ul Hgb 11.9 L (14.0-18.0) g/dl Hct 35 L (42-52) % MCV 88 (80-94) fL MCH 30 (27-31) pg MCHC 34 (31-36) g/dl RDW 15 (10.5-15) % Plt Count 570 H D (150-450) 10^3/ul MPV 7 L (7.4-10.4) um3 Neut % (Auto) 72.6 (38-83) % Lymph % (Auto) 17.8 L (25-47) % [place] % (Auto) 8.4 (1-9) % Eos % (Auto) 0.6 (0-6) % Baso % (Auto) 0.6 (0-2) % Absolute Neuts (auto) 5.3 (1.5-7.7) 10^3/ul Absolute Lymphs (auto) 1.3 (1.0-4.8) 10^3/ul Absolute Monos (auto) 0.6 (0-0.8) 10^3/ul Absolute Eos (auto) 0 (0-0.6) 10^3/ul Absolute Basos (auto) 0 (0-0.2) 10^3/ul Absolute Nucleated RBC 0.01 10^3/ul Nucleated RBC % 0.1 Sodium 135 (133-145) mmol/L Potassium 3.3 L (3.5-5.0) mmol/L Chloride 108 (101-111) mmol/L Carbon Dioxide 20 L (22-32) mmol/L Anion Gap 7 (2-11) mmol/L BUN 9 (6-24) mg/dL Creatinine 0.71 (0.67-1.17) mg/dL Est GFR ( Amer) 164.3 (>60) Est GFR (Non-Af Amer) 127.8 (>60) BUN/Creatinine Ratio 12.7 (8-20) Glucose 126 H (70-100) mg/dL Calcium 9.3 (8.6-10.3) mg/dL Total Bilirubin 0.40 (0.2-1.0) mg/dL AST 12 L (13-39) U/L ALT 6 L (7-52) U/L Alkaline Phosphatase 72 (34-104) U/L Total Protein 7.6 (6.4-8.9) g/dL Albumin 4.0 (3.2-5.2) g/dL Globulin 3.6 (2-4) g/dL Albumin/Globulin Ratio 1.1 (1-3) TSH 1.03 (0.34-5.60) mcIU/mL Urine Color Urine Appearance Urine pH (5-9) Ur Specific [place] (1.010-1.030) Urine Protein (Negative) Urine Ketones (Negative) Urine Blood (Negative) Urine Nitrate (Negative) Urine Bilirubin (Negative) Urine Urobilinogen (Negative) Ur Leukocyte Esterase (Negative) Urine Glucose (Negative) Salicylates < 2.50 (<30) mg/dL Urine Opiates Screen None detected (None Detect) Acetaminophen < 15 mcg/mL Ur Barbiturates Screen None detected (None Detect) Valproic Acid 96.0 (50-100) mcg/mL Ur Phencyclidine Scrn None detected (None Detect) Ur Amphetamines Screen None detected (None Detect) U Benzodiazepines Scrn None detected (None Detect) Urine Cocaine Screen None detected (None Detect) U Cannabinoids Screen Presumptive positive H (None Detect) Serum Alcohol < 10 (<10) mg/dL 02/27/17 Range/Units 19:20 WBC (3.5-10.8) 10^3/ul RBC (4.0-5.4) 10^6/ul Hgb (14.0-18.0) g/dl Hct (42-52) % MCV (80-94) fL MCH (27-31) pg MCHC (31-36) g/dl RDW (10.5-15) % Plt Count (150-450) 10^3/ul MPV (7.4-10.4) um3 Neut % (Auto) (38-83) % Lymph % (Auto) (25-47) % [place] % (Auto) (1-9) % Eos % (Auto) (0-6) % Baso % (Auto) (0-2) % Absolute Neuts (auto) (1.5-7.7) 10^3/ul Absolute Lymphs (auto) (1.0-4.8) 10^3/ul Absolute Monos (auto) (0-0.8) 10^3/ul Absolute Eos (auto) (0-0.6) 10^3/ul Absolute Basos (auto) (0-0.2) 10^3/ul Absolute Nucleated RBC 10^3/ul Nucleated RBC % Sodium (133-145) mmol/L Potassium (3.5-5.0) mmol/L Chloride (101-111) mmol/L Carbon Dioxide (22-32) mmol/L Anion Gap (2-11) mmol/L BUN (6-24) mg/dL Creatinine (0.67-1.17) mg/dL Est GFR ( Amer) (>60) Est GFR (Non-Af Amer) (>60) BUN/Creatinine Ratio (8-20) Glucose (70-100) mg/dL Calcium (8.6-10.3) mg/dL Total Bilirubin (0.2-1.0) mg/dL AST (13-39) U/L ALT (7-52) U/L Alkaline Phosphatase (34-104) U/L Total Protein (6.4-8.9) g/dL Albumin (3.2-5.2) g/dL Globulin (2-4) g/dL Albumin/Globulin Ratio (1-3) TSH (0.34-5.60) mcIU/mL Urine Color [place] Urine Appearance Turbid Urine pH 7.0 (5-9) Ur Specific [place] 1.018 (1.010-1.030) Urine Protein Negative (Negative) Urine Ketones Trace H (Negative) Urine Blood Negative (Negative) Urine Nitrate Negative (Negative) Urine Bilirubin Negative (Negative) Urine Urobilinogen Negative (Negative) Ur Leukocyte Esterase Negative (Negative) Urine Glucose Negative (Negative) Salicylates (<30) mg/dL Urine Opiates Screen (None Detect) Acetaminophen mcg/mL Ur Barbiturates Screen (None Detect) Valproic Acid (50-100) mcg/mL Ur Phencyclidine Scrn (None Detect) Ur Amphetamines Screen (None Detect) U Benzodiazepines Scrn (None Detect) Urine Cocaine Screen (None Detect) U Cannabinoids Screen (None Detect) Serum Alcohol (<10) mg/dL Result Diagrams: 02/27/17 18:16 02/27/17 18:16 Lab Statement: Any lab studies that have been ordered have been reviewed, and results considered in the medical decision making process. Course/Dx - Course Course Of Treatment: Pt is a 31 y/o M presenting with ongoing auditory hallucinations. Associated sx: paranoia. Last seen in ED for MHE on 02/11/17. Per Aunt, pt thinks bugs are all around himself. Pt states feeling OK and denies hearing voices at bedside. Denies pain, SI, HI. No PMHx: schizophrenia. Sees Dr. Couch, neuro. Recent medication changes. Pt given Potassium chloride in ED. Bloodwork and UA obtained. Medically cleared for MHE at 1947. - Differential Dx/Clinical Impression Provider Diagnosis: Acute psychosis Discharge - Discharge Plan Condition: Stable Disposition: OTHER Discharge Disposition Comment: mh evaluation Referrals: Butch Reyes MD [Primary Care Provider] - The documentation as recorded by the Braulio inman SooYoung accurately reflects the service I personally performed and the decisions made by me, Elpidio Zeng.
[2017-02-28] MEDS ORDERED: Divalproex ER TAB(*) 500 MG ONE (00:43)
[2017-02-28] MEDS ORDERED: Topiramate TAB(*) 100 MG ONE (00:43)
[2017-02-28] MEDS ORDERED: Topiramate TAB(*) 100 MG PO ONE (10:50)
[2017-02-28] MEDS ORDERED: Divalproex ER TAB(*) 500 MG PO ONE (10:51)
[2017-02-28 13:18] VITALS: BP 119/80
[2017-02-28] MEDS ORDERED: Divalproex ER TAB(*) 500 MG PO SCH (21:00)
[2017-02-28] MEDS ORDERED: Topiramate TAB(*) 100 MG PO SCH (21:00)
== END 2017-02-28 01:10 ==
LOC: ED 17:52
DX: R44.0 Auditory hallucinations (principal); F23 Brief psychotic disorder
CPT/HCPCS: 36415; 80053; 80164; 80307; 80320; 80329; 81003; 84443; 85025; 99284; A9270-GY; G0480

== ENCOUNTER → 2017-03-04 05:34 | Emergency (ER) | payer MEDICARE, MEDICAID ==
--- NOTE | 2017-03-04 06:37 | ED ---
Diane Palmer Rebecca, scribed for Mercedes Zenguel on 03/04/17 at 0601 . Psychiatric Complaint - HPI Summary HPI Summary: Pt is a 31 y/o M accompanied by a friend who presents to ED c/o auditory hallucinations. Sx began this morning at approximately 0330. Pt reports "they were talking to me, I was getting upset at them." Friend states that "the neighbors in the closet were messing him him" and that he "woke me up, screaming , yelling, breaking his glasses." Denies CP, SOB. The is the pt's third visit to the ED for the same sx in the past 2 weeks. - History Of Current Complaint Chief Complaint: EDMentalHealth Time Seen by Provider: 03/04/17 05:55 Hx Obtained From: Patient Onset/Duration: Still Present Aggravating Factor(s): Nothing Alleviating Factor(s): Nothing Associated Signs And Symptoms: Positive: Hallucinating - auditory - Allergies/Home Medications Allergies/Adverse Reactions: Allergies Allergy/AdvReac Type Severity Reaction Status Date / Time Carbamazepine [From Tegretol] Allergy Unknown Unknown Verified 02/11/17 19:23 Reaction Details Diazepam [From Valium] Allergy Unknown Unknown Verified 02/11/17 19:23 Reaction Details Phenobarbital Allergy Unknown Unknown Verified 02/11/17 19:23 Reaction Details Phenytoin [From Dilantin] Allergy Unknown Unknown Verified 02/11/17 19:23 Reaction Details Alprazolam [From Xanax] Allergy Itching Verified 02/12/17 03:49 Quetiapine [From Seroquel] Allergy See Comment Verified 02/12/17 03:50 PMH/Surg Hx/FS Hx/Imm Hx Endocrine/Hematology History: Denies: Hx Diabetes, Hx Thyroid Disease Cardiovascular History: Denies: Hx Hypertension, Hx Pacemaker/ICD Respiratory History: Reports: Hx Asthma, Hx Chronic Obstructive Pulmonary Disease (COPD) GI History: Denies: Hx Ulcer Neurological History: Reports: Hx Headaches, Hx Seizures, Other Neuro Impairments/Disorders - epilepsy Psychiatric History: Denies: Hx Panic Disorder, Hx Schizophrenia, Hx of Violent Episodes Against Others - Surgical History Surgery Procedure, Year, and Place: RIGHT ELBOW fracture repair Infectious Disease History: No Infectious Disease History: Denies: Hx Clostridium Difficile, Hx Hepatitis, Hx Human Immunodeficiency Virus (HIV), Traveled Outside the [place] in Last 30 Days - Family History Known Family History: Positive: Other - Epilepsy in father - Social History Alcohol Use: Occasionally Alcohol Amount: few times per month Hx Substance Use: Yes Substance Use Type: Reports: Marijuana Hx Tobacco Use: Yes Smoking Status (MU): Current Every Day Smoker Type: Cigarettes Amount Used/How Often: 1-2 PPD Length of Time of Smoking/Using Tobacco: 15 years Have You Smoked in the Last Year: Yes Review of Systems Negative: Chest Pain Negative: Shortness Of Breath Positive: Other - auditory hallucinations All Other Systems Reviewed And Are Negative: Yes Physical Exam - Summary Physical Exam Summary: Appearance: Well appearing, no pain distress Skin: warm, dry, reflects adequate perfusion Head/face: normal Eyes: EOMI, AMSOUD ENT: normal Respiratory: CTA, breath sounds present Cardiovascular: RRR, pulses symmetrical Abdomen: nontender, soft Bowel: present Musculoskeletal: normal, strength/ROM intact Neuro: normal, sensory motor intact, A&Ox3 Psychiatric: Depressed mood Triage Information Reviewed: Yes Vital Signs On Initial Exam: Initial Vitals Temp Pulse Resp BP Pulse Ox 98.5 F 98 18 133/87 100 03/04/17 05:42 03/04/17 05:42 03/04/17 05:42 03/04/17 05:42 03/04/17 05:42 Vital Signs Reviewed: Yes Diagnostics - Vital Signs Vital Signs Temp Pulse Resp BP Pulse Ox 03/04/17 05:42 98.5 F 98 18 133/87 100 - Laboratory Lab Statement: Any lab studies that have been ordered have been reviewed, and results considered in the medical decision making process. Course/Dx - Course Assessment/Plan: Pt is a 31 y/o M accompanied by a friend who presents to ED c/ o auditory hallucinations. Sx began this morning at approximately 0330. Pt reports "they were talking to me, I was getting upset at them." Friend states that "the neighbors in the closet were messing him him" and that he "woke me up , screaming, yelling, breaking his glasses." Denies CP, SOB. The is the pt's third visit to the ED for the same sx in the past 2 weeks. Pt will be signed out , pending dispo, awaiting MHE. Elevated BP noted. - Differential Dx/Clinical Impression Provider Diagnosis: Acute psychosis Discharge - Discharge Plan Condition: Stable Disposition: OTHER Discharge Disposition Comment: Pt will be signed out, pending dispo, awaiting MHE. The documentation as recorded by the Diane inman Rebecca accurately reflects the service I personally performed and the decisions made by , Elpidio Zeng.
[2017-03-04 07:22] LABS: Hematocrit 38 % (42-52); Hemoglobin 12.5 g/dl (14.0-18.0); Mean Corpuscular HGB Conc 33 g/dl (31-36); Mean Corpuscular Hemoglobin 29 pg (27-31); Mean Corpuscular Volume 89 fL (80-94); Mean Platelet Volume 8 um3 (7.4-10.4); Red Blood Count 4.27 10^6/ul (4.0-5.4); Red Cell Distribution Width 15 % (10.5-15); White Blood Count 7.3 10^3/ul (3.5-10.8)
[2017-03-04 07:34] LABS: ALT 7 U/L (7-52); AST 13 U/L (13-39); Acetaminophen < 15 mcg/mL; Alcohol < 10 mg/dL (<10); Alkaline Phosphatase 76 U/L (34-104); Anion Gap 7 mmol/L (2-11); BUN/Creatinine Ratio 22.4 (8-20); Blood Urea Nitrogen 13 mg/dL (6-24); CO2 Carbon Dioxide 23 mmol/L (22-32); Calcium 9.7 mg/dL (8.6-10.3); Chloride 105 mmol/L (101-111); EGFR African American 207.5 (>60); EGFR Non-African American 161.4 (>60); Globulin 3.8 g/dL (2-4); Glucose 106 mg/dL (70-100); Potassium 3.6 mmol/L (3.5-5.0); Salicylate < 2.50 mg/dL (<30); Sodium 135 mmol/L (133-145); Total Protein 7.8 g/dL (6.4-8.9)
[2017-03-04 07:36] LABS: Urine Bacteria Absent (Absent); Urine Bilirubin Negative (Negative); Urine Glucose Negative (Negative); Urine Nitrite Negative (Negative)
[2017-03-04 07:42] LABS: Benzodiazepine Urine Screen None Detected (None Detect)
[2017-03-04 07:44] LABS: TSH (Thyroid Stimulating Horm) 2.58 mcIU/mL (0.34-5.60)
[2017-03-04 08:48] VITALS: BP 117/73
--- NOTE | 2017-03-04 17:21 | ED ---
Cass Palmer Alfonso, scribed for Lian Pollard MD on 03/04/17 at 0801 . Progress - Progress Note Progress Note: This patient was signed out from Dr. Zeng, pending disposition, awaiting MHE. After MHE, patient is stable for discharge. The patients condition is stable and will be discharged to home with Dx of auditory hallucinations and seizure disorder. Brain CT reveals, per radiologist, NO EVIDENCE FOR ACUTE INTRACRANIAL ABNORMALITY. ED physician has reviewed this radiology report and agrees. Patient medically cleared for MHE at 0753. Consulted Dr. Jung at [address] Hodan Couch. Consulted Dr. Couch (neurologist) at 1352 who stated if the EEG was done while the patient was hallucinating it would be primary psychology, but if the EEG was done while not hallucinating have the patient follow up as an outpatient. Consulted Dr. Jung at 1402 who stated he was not hallucinating during the EEG, thus he will need outpatient follow up with Dr. Couch. Reevaluated the patient at 1450 where the plan for discharge and outpatient follow up was reviewed with the pt and his aunt. Patient reported he felt like there were bugs on his skin, and in an exam of his body and scalp, there were no findings. Pt and aunt understand and agree with plan for discharge. Aunt called Dr. Bruce office. - Results/Orders Results/Orders: Brain CT reveals, per radiologist, NO EVIDENCE FOR ACUTE INTRACRANIAL ABNORMALITY. ED physician has reviewed this radiology report and agrees. Course/Dx - Diagnoses Provider Diagnoses: Auditory hallucination, Seizure disorder The documentation as recorded by the Cass inman Alfonso accurately reflects the service I personally performed and the decisions made by , Lian Pollard MD.
== END | disposition home or self-care (01) ==
LOC: ED 05:34
DX: R44.0 Auditory hallucinations (principal); G40.909 Epilepsy, unspecified, not intractable, without status epilepticus
CPT/HCPCS: 36415; 80053; 80307; 80320; 80329; 81003; 81015; 84443; 85025; 99284; G0480

== ENCOUNTER 2017-03-17 11:27 | Inpatient (IN) | payer MEDICARE, MEDICAID ==
[2017-03-17] MEDS ORDERED: NS 0.9% 1000 ML* 1,000 ML IV ONE (11:35)
[2017-03-17 11:53] LABS: Hematocrit 36 % (42-52); Hemoglobin 12.2 g/dl (14.0-18.0); Mean Corpuscular HGB Conc 34 g/dl (31-36); Mean Corpuscular Hemoglobin 30 pg (27-31); Mean Corpuscular Volume 88 fL (80-94); Mean Platelet Volume 7 um3 (7.4-10.4); Red Blood Count 4.09 10^6/ul (4.0-5.4); Red Cell Distribution Width 15 % (10.5-15); White Blood Count 6.3 10^3/ul (3.5-10.8)
--- NOTE | 2017-03-17 12:30 | RAD ---
Indication: Multiple seizures. CT of the brain was performed without IV contrast. Ventricular structures are midline. No midline shift is noted. The extra-axial spaces are unremarkable. There is no evidence of intrarenal mass or hemorrhage. No other high or low density lesions are noted. Compared to previous exam February 11, 2017 no significant change is noted. Mastoid air cells and paranasal sinuses are otherwise unremarkable. IMPRESSION: No intracranial lesion is identified.
[2017-03-17 13:28] LABS: Albumin 3.7 g/dL (3.2-5.2); BUN/Creatinine Ratio 6.9 (8-20); EGFR African American 207.5 (>60); EGFR Non-African American 161.4 (>60); Globulin 3.4 g/dL (2-4); Magnesium 1.9 mg/dL (1.9-2.7); Potassium 4.1 mmol/L (3.5-5.0); Total Bilirubin 0.3 mg/dL (0.2-1.0); Total Protein 7.1 g/dL (6.4-8.9)
[2017-03-17 13:33] LABS: Urine Nitrite Negative (Negative)
[2017-03-17 13:34] LABS: Urine Bilirubin Negative (Negative); Urine Glucose Negative (Negative)
[2017-03-17 15:07] LABS: Benzodiazepine Urine Screen None Detected (None Detect)
[2017-03-17] MEDS ORDERED: Nicotine PATCH 7 MG/24 HR* PATCH TRANSDERM ONE (17:27)
[2017-03-17] MEDS ORDERED: Nicotine Inhaler* 10 MG AMP INH ONE (17:27)
[2017-03-17] MEDS ORDERED: Mouth Piece, Nicotine* 1 EACH CARTRIDGE ONE (21:27)
[2017-03-17] MEDS: Mouth Piece, Nicotine* 1 EACH CARTRIDGE INH PRN ×2 (21:31→21:32)
--- NOTE | 2017-03-18 01:18 | ED ---
Diane Palmer Rebecca, scribed for Moses Lopez MD on 03/17/17 at 2303 . Progress - Progress Note Progress Note: Pt was signed out from Dr. Mcmahon, pending disposition, awaiting MHE. - Consult/PCP Time Called: 18:00 Course/Dx - Course Course Of Treatment: Pt was signed out from Dr. Mcmahon, pending disposition, awaiting MHE. Upon completion of MHE and consultation with Dr. Short, the pt will be admitted involuntarily to the psychiatric unit with Dx of psychoses. The necessary admissions paperwork was signed. The patient's condition is stable and his disposition is admission to the behavioral health unit. - Diagnoses Provider Diagnoses: Psychoses The documentation as recorded by the Diane inman Rebecca accurately reflects the service I personally performed and the decisions made by , Moses Lopez MD.
[2017-03-18] MEDS ORDERED: risperiDONE TAB* 1 MG ONE (02:12)
[2017-03-18] MEDS ORDERED: Topiramate TAB(*) 100 MG ONE (02:12)
[2017-03-18] MEDS ORDERED: Nicotine Inhaler* 10 MG AMP INH PRN (03:41)
[2017-03-18] MEDS ORDERED: Al Hydrox/Mg Hydrox/Simet LIQ* 30 ML UDC PO PRN (03:41)
[2017-03-18] MEDS ORDERED: Acetaminophen TAB* 325 MG PO PRN (03:41)
[2017-03-18] MEDS ORDERED: Mouth Piece, Nicotine* 1 EACH CARTRIDGE INH ONE (04:00)
[2017-03-18] MEDS: Topiramate TAB(*) 100 MG PO SCH ×2 (13:45→21:29)
[2017-03-18] MEDS: Divalproex ER TAB(*) 500 MG PO SCH ×2 (13:45→21:28)
[2017-03-18] MEDS: Nicotine PATCH 14 MG/24 HR* PATCH TRANSDERM SCH (13:46)
[2017-03-18] MEDS: Nicotine Patch Removal NOTE FOLLOW UP SCH (13:58)
[2017-03-18] MEDS: Vitamin THERAPEUTIC TAB PO SCH (13:58)
--- NOTE | 2017-03-18 16:32 | HP ---
PSYCHIATRIC ASSESSMENT: DATE OF ADMISSION: 03/17/17 JUSTIFICATION FOR ADMISSION: The patient in need of 24-hour supervision and treatment secondary to psychosis and inability to care for himself in the least restrictive setting. CHIEF COMPLAINT: "I just want to go home." HISTORY OF PRESENT ILLNESS: The patient is a 31-year-old single white male with a history of developmental delay and epilepsy who arrives having been brought in on a 9.39 status secondary to several months of worsening paranoia and deficits in self-care. The patient is somewhat limited as a historian. My understanding is that he resides with an aunt. He does have a history of seizures and has had several visits to our emergency room since January 2017 due to seizure activity followed by psychotic behavior. He has had 4 mental health evaluations, the first being on 02/11/17 followed by 02/27/17 and then again on 03/05/17 followed by this most recent presentation. The patient is highly minimizing towards these concerns and so we rely on family for collateral. They indicate that in December, his neurologist, Dr. Hodan Couch changed some of his anticonvulsant medications and since then he has continued to experience seizures and unusual behaviors. As an example, Cuco is purported to be paranoid , hearing voices, he thinks that his neighbors are spying on him and shooting him in the buttocks with a BB gun. He has been obsessively showering and washing his hands. He has been scratching his temples in order to get at lice, although no lice has been found in his hair. In addition, he has not been eating, has been losing weight and is sleeping more. His aunt, Sin, reports that the patient has also been having more seizures. On examination, he is calm and cooperative, but lying on his side, not making much eye contact. He will only state at this time that he wishes to leave the hospital and does not believe that this is a benefit. I was able to speak with neurologist consultation this morning and Dr. Stoney Castro indicated to me that he will be reaching out to Dr. Hodan Couch to gather further history. I do know that the patient was slated for an outpatient EEG at some point earlier this month, but it was postponed until 04/02/17 due to scheduling errors. PAST PSYCHIATRIC HISTORY: The patient has never had formal psychiatric treatment. Back in 2013, he had an experience where he became psychotic after smoking synthetic cannabis and at that time he was seen by consulting psychiatrist, Dr. Dion Laureano. Once the drug effect wore off; however, he returned to his baseline and did not require psychiatric hospitalization. More recently he was started on 1 mg of Risperdal by our emergency room with instructions to follow up at [facility], although it appears that he has not been able to do this thus far. He has no history of homicidal or suicidal ideations or attempts. SUBSTANCE ABUSE HISTORY: The patient is a chronic cannabis smoker, essentially smoking every day. He does have a history of using synthetic cannabis when he cannot get the real thing. He denies alcohol or other illicit substances at this time. He does smoke a pack of cigarettes per day. FAMILY HISTORY: Noncontributory. SOCIAL HISTORY: The patient resides with his aunt here in the [facility]. He has never been and has no children. REVIEW OF SYSTEMS: The patient denies headache or double vision. He denies difficulty moving his bowels. Denies rashes or fevers. It does appear that he has had a 20-pound weight loss in the last several months. PHYSICAL EXAMINATION VITAL SIGNS: Blood pressure 124/75, heart rate 64, respiratory rate 16, temperature 97.5 degrees Fahrenheit, oxygen saturations are 100% on room air. HEENT: Head is normocephalic, atraumatic. NECK: Supple. CHEST: Clear to auscultation bilaterally. CARDIAC: Reveals normal heart sounds. ABDOMEN: Soft and nontender. MUSCULOSKELETAL: Reveals no sign of edema. NEUROLOGIC: He has no focal deficits. LABORATORY DATA: CBC shows elevated platelets at 596,000. CMP reveals hyponatremia with a sodium that is only 125, chloride low at 99, creatinine low at 0.58. Urinalysis is within normal limits. Urine drug screen positive only for cannabinoids. Valproic acid level is therapeutic at 77. MENTAL STATUS EXAM: The patient is a young white female, who looks undernourished. He is balding with several scratches on his scalp. He is wrapped up in a blanket, lying on his side, not making much eye contact. He looks to be withdrawn and it is somewhat difficult to establish a rapport with him. Mood would appear to be depressed with a constricted affect. Thought process is linear and goal directed. Thought content is significant for his desire to leave the hospital. He denies suicidal or homicidal ideations. He denies auditory or visual hallucinations. His thought content does reveal delusions that his neighbors are spying on him and persecuting him. Insight and judgment appear to be limited. Cognitively, he is awake and alert with what would appear to be an average intellect. 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 [place] II: Unspecified developmental delay. [place] III: Seizure disorder. [place] IV: Moderate primary support stressors. [place] V: At this time is 40. IMPRESSION: The patient is a 31-year-old single white female with a history of developmental delay as well as seizure disorders and chronic cannabis dependence who was brought in by the authorities because of concerns by his aunt that he has been having more seizures recently and increasing psychotic thought process. It would appear that the patient is not able to care for himself in an outpatient setting at this time. PLAN: The patient is admitted to the adult behavioral health unit where he was placed on q.15 minute checks for his own safety. Neurology has been consulted and Dr. Stoney Castro has already examined the patient. Dr. Castro will be getting in touch with outpatient neurologist, Dr. Hodan Couch to provide further collateral information. It would appear that an EEG is warranted at this time. For now, we will continue him on his current anticonvulsant regimen. In addition, I will increase his risperidone from 1 to 2 mg nightly and will be getting further collateral information from his aunt. While he is here, he is certainly encouraged to avail himself of all unit and milieu activities including individual and group psychotherapies. [id number]/[facility] #: [id number] [facility]OSPITALThomas
--- NOTE | 2017-03-18 19:33 | CONS ---
CONSULTATION REPORT: DATE OF CONSULT: 03/18/17 LOCATION: He is currently in room 207, bed 2 in the inpatient psychiatric unit. REASON FOR CONSULT: Bizarre behavior, history of seizures. HISTORY OF PRESENT ILLNESS: Mr. Barillas is a 31-year-old gentleman with a history of seizures and behavioral issues, followed by Dr. Hodan Couch in our clinic. He is currently unable to give me any history, but I did speak at length with his aunt, Sin Rodriguez, area code [phone], who was very helpful. She states that prior to 01/29/17, the patient started to complain about his best friend stealing from him and was a little bit paranoid about that. He disassociated from his friend, but around 01/29/17, it appears that he started to have more unusual behaviors. This is not something that he normally had in the past. He has no psychiatric history that his aunt is aware of. He basically started to have more paranoid thoughts, become more assertive. He started to hear things, but he has had no reported visual hallucinations. He started to believe that he had bugs on his body and crawling in his head. He started to feel that he had mold in his lungs, that his room had mold in it. He developed a twitch in his left shoulder. He started to spit into a Gatorade bottle. All of these were very unusual behaviors for him, and the aunt says that it has all been progressing since the early part of January. He has been brought to the ER several times. Most recently he was brought to the ER on 02/05/17. In addition, it appears he was in the ER on 02/27/17 and 03/04/17, and on those visits, he was noted to have auditory hallucination. It was noted that he was having psychiatric symptoms for the last few weeks, but none in his life prior, hearing voices at the bedside. He did have an EEG done last month that was normal. He had a CT of the brain on 03/17/17 that was negative. He has an appointment for the epilepsy monitoring unit on 04/02/17 because there is concern that his behavior changes are secondary to seizures versus an underlying psychiatric issue. He was most recently seen by Dr. Jung in clinic on 02/05/17. At that time, it was noted that he was undergoing some medication changes. Due to some supratherapeutic levels, his Depakote was being weaned down and currently at that time he was on 500 mg b.i.d. His most recent level yesterday was 77. His level on 02/27/17 was 96. In addition, his Topamax was being titrated up in the hopes that this might help control some of his seizures. He was seen by Dr. Couch on 02/02/17. At that time, he noted the behavioral changes and paranoid behaviors as well. At that time, he reported 2 seizures with incontinence during the night. In July, his Depakote had been decreased from 2000 to 1500 mg a day and his Topamax was increased from 200 to 250 mg and then 300 mg in divided doses. In July, he was noted to have a Depakote level of 144 and the dose was decreased to 1500 mg, and on 09/15/16, his followup Depakote level was 97, his Topamax level was 7.5. At that time, Dr. Couch noted that he had been seen at [facility] where his fasting Depakote level was elevated at 146. He also had a sodium of 127, potassium of 3.8, glucose of 100, BUN of 7, creatinine of 0.[address] Couch' s note. He had a white count of 6600, hematocrit of 43, and platelet count of 435,000. At that time, his Depakote was noted to be 143. Dr. Couch noted that he was skeptical that the Depakote was responsible for the behavioral changes, but that the Topamax may be playing a role, that is when his Depakote was decreased to 500 mg b.i.d. and his Topamax was increased to 300 mg. He did have B12, folate, free T4 all within normal limits. His prior notes indicate that he is a cannabis user frequently. The aunt states that on the day of admission, he was found in his room confused, that he stiffened, lost control of his bladder, and was confused afterwards. Based on this and the hallucination, she brought him into the hospital. She also notes that he has been scratching at his head and has multiple excoriations on his scalp because he is afraid that he has bugs on his body. She states that he normally has 1 to 2 seizures every 2 to 3 months but that he seems to have had more in the last few weeks. She knows of no psychiatric history in the family. He does not have a close relationship with his father. I spoke with his treating psychiatrist who states that he had been contacted by the ER several times and it had been recommended that the patient be started on Risperdal, which was done. The aunt states that this helped several nights, but then his behaviors returned. PAST MEDICAL HISTORY: As noted, seizures. MEDICATIONS: His home medications apparently include: 1. Risperidone 1 mg p.o. at bedtime. 2. Topiramate 200 mg at bedtime. 3. Topiramate 100 mg in the morning. 4. Depakote 500 mg p.o. b.i.d. ALLERGIES: CARBAMAZEPINE, DIAZEPAM, PHENOBARBITAL, PHENYTOIN, ALPRAZOLAM, and SEROQUEL. FAMILY HISTORY: His father is from seizures. His mother is in an automobile accident. SOCIAL HISTORY: He previously smoked tobacco. He smokes cannabis now. Alcohol use is unknown. REVIEW OF SYSTEMS: His review of systems and the 14 organ systems was difficult. The patient was unable to provide me much history and was an unreliable historian. He denies any current pain. He does note the seizures. Denies any current shortness of breath, chest pain, dyspnea on exertion, nausea , vomiting, diarrhea, or constipation. PHYSICAL EXAMINATION: Vitals: Temperature 97.5, pulse 64, respiratory rate of 16, pulse ox is 100%, blood pressure 124/75 to 136/76 to 83/50. In general, he is a very thin, poorly nourished gentleman, lying on the bed in the inpatient psychiatric unit. He is disheveled. He has excoriations across the front of his forehead and to his scalp. He is somnolent, but answers some questions. He is normocephalic. Mucous membranes are dry. Oropharynx is clear. He has poor dentition. Neck is supple. No thyromegaly. No carotid bruits. Chest: Clear to auscultation bilaterally. Cardiovascular: Regular rate and rhythm. Abdomen is nontender, scaphoid. Extremities: No clubbing, cyanosis, or edema. On neurologic exam, he is awake, but somnolent. He is oriented to person, place, and time. His speech is fluent. There is no dysarthria, although he is a very poor historian. Cranial nerves: Pupils are equally round and reactive to light. Extraocular muscles are intact. There is no nystagmus. Facial sensation is intact. His hearing is intact bilaterally. Palate is midline. Tongue is midline. Motor examination: He was noncompliant, had poor effort but generally moving all extremities antigravity. When he did resist, he had 5/ 5. He is very thin. Some generalized atrophy noted. Sensation: He states is intact to light touch and pinprick throughout. DTRs were symmetric in the upper and lower extremities. There were no resting tremors noted. Finger-to- nose was intact. Gait: He is ambulating without difficulty. LABORATORY DATA/DIAGNOSTIC STUDIES: Sodium of 125, potassium of 4.1, chloride of 99, carbon dioxide of 20, BUN of 4, creatinine of 0.58. Urine was negative. Utox, presumptive cannabinoids. Hemoglobin of 12.2, hematocrit 36, platelet count of 596. His CT scan of the head, no intracranial lesions identified. ASSESSMENT AND PLAN: Mr. Barillas is a 31-year-old gentleman with a known history of seizures, likely complex partial with possibly secondary generalization although this is unclear, currently on Depakote 500 mg b.i.d. and Topamax 300 mg daily divided. He has had medication adjustments, see the HPI for details. Since early January, his aunt notes that he has been having worsening psychiatric issues including auditory hallucinations, paranoid thoughts, convinced that he has bugs all over his body to the point that he has scratched his scalp and has excoriations. At present, the most pressing question is whether or not his behavior changes are due to some underlying psychiatric condition or whether they are part of the underlying seizure disorder. He is scheduled for EMU and I spoke with the aunt who states that she will get him there and I think that this is vital because this will show us if he is having subclinical seizures, which may be associated with his underlying psychiatric issues. I am also concerned that he could have underlying bipolar disorder or psychiatric issue that has been masked with the Depakote for some time and now that the Depakote level has been reduced, some of these symptoms are starting to appear. Unfortunately, I do not think we need to increase his Depakote at this point given his hyponatremia, which I suspect is secondary to the Depakote and his history of toxicity. We can consider Lamictal as it is also a mood stabilizer but I would like to get the long-term monitoring if possible. My suspicion that Topamax is playing a role is low. A Lamictal titration will take some time and I would be hesitant to take him off of the Depakote at this point pending further evaluation. I will continue his Risperdal for now to help control some of the psychiatric symptoms , although this can lower seizure threshold and this is something that will need to be monitored as well. The crux of this problem lies in trying to identify the etiology of his symptoms and I am leaning towards underlying mood disorder with some psychotic features versus unusual seizure presentation. We will see how he does over the next few days with Risperdal. I have ordered an EEG to look for any seizure-like activity or underlying nonconvulsive status. I will continue to follow him closely and make further recommendations as necessary. Thank you for the opportunity to participate in his care. [id number]/[facility] #: [id number] [place]
[2017-03-18] MEDS ORDERED: risperiDONE TAB* 1 MG PO SCH (21:00)
[2017-03-18] MEDS: Nicotine Patch Removal NOTE PATCH OFF SCH (21:45)
[2017-03-19] MEDS: Nicotine Patch Removal NOTE FOLLOW UP SCH (06:00)
[2017-03-19] MEDS: Nicotine PATCH 14 MG/24 HR* PATCH TRANSDERM SCH (09:40)
[2017-03-19] MEDS: Divalproex ER TAB(*) 500 MG PO SCH ×2 (09:40→22:00)
[2017-03-19] MEDS: Vitamin THERAPEUTIC TAB PO SCH (09:40)
[2017-03-19] MEDS: Topiramate TAB(*) 100 MG PO SCH ×2 (09:41→22:01)
--- NOTE | 2017-03-19 10:26 | EEG ---
ELECTROENCEPHALOGRAPHY: DATE OF STUDY: LOCATION: The patient is an inpatient. ORDERING PROVIDER: Dr. Castro. CLINICAL PROBLEM: This is a 31-year-old man in the behavior health unit, who has been having increased seizures and auditory hallucinations. He also states that he believes the neighbors are "shooting him in the butt with BB gun" and he states that he is shooting BBs back at them in the night. He has scratches allover his forehead from trying to scratch the lice off of his head. When he first arrived, he asked to take a shower and was in there for an hour. When staff went to check on him, he was standing in the bathroom staring at the floor. EEG is requested to evaluate for epileptiform abnormalities. MEDICATIONS: 1. Maalox. 2. Tylenol. 3. Risperdal 4. Multivitamin. 5. Topamax. 6. Depakote. 7. Nicotine patch. DESCRIPTION: The waking background showed appropriate organization with clearly defined anterior to posterior voltage and frequency gradients. There was a well- defined, but slow posterior dominant rhythm of 7.5 to 8 Hz maximally , which was symmetrical and showed normal reactivity. Anteriorly, there was an expected pattern of lower voltage, irregular, mixed faster frequencies. Hyperventilation and photic stimulation were not performed. Throughout the recording, there were no epileptiform discharges, focal features , paroxysmal features or significant interhemispheric asymmetries. Of note, no mention was made of whether the patient was experiencing hallucinations during this recording. CLINICAL IMPRESSION: This is a normal waking EEG. There are no epileptiform abnormalities. [id number]/[facility] #: [id number] [facility]OSPITALThomas
--- NOTE | 2017-03-19 12:35 | PN ---
Subjective - Subjective Service Type: 60868 Hosp care 15 min low complexity Subjective: Patient more interactive today, out on the milieu, more social, more visible. Once again minimizes the circumstances related to admission. Denies SI or HI and expresses his interest in going home. Neurology is following and the patient had a normal wake-cycle EEG yesterday. Objective - Appearance Appearance: Thin Framed Dysmorphic Features: No Hygiene: Normal Grooming: Fairly Well Kept - Behavior Psychomotor Activities: Abnormal-Decreased Exhibits Abnormal Movement: No - Attitude and Relatedness Attitude and Relatedness: Cooperative Eye Contact: Fair - Speech Quality: Unpressured Latencies: Normal Quantity: Terse - Mood Patient's Decription of Mood: "Okay" - Affect Observed Affect: Fair Affect Consistent with: Euthymia - Thought Process Patient's Thought Process: Coherent Thought Content: Yes Paranoid Ideation, No Passive Wish, No Suicidal Planning, No Homicidal Ideation - Sensorium Experiencing Hallucinations: No, Sensorium is Clear Type of Hallucinations: Visual: No, Auditory: No, Command: No - Level of Consciousness Level of Consciousness: Alert Orientation: Yes Intact, Yes Orientated to Time, Yes Orientated to Place, Yes Orientated to Person - Impulse Control Impulse Control: Tenuous - Insight and Judgement Insight and Judgement: Fair - Group Participation Particating in Group Activities: No - Medication Management Medication Management Adherence: Yes Assessment - Assessment Merits Inpatient Hospitalization: For Immediate Safety, For Stabilization Inpatient DSM-IV Dx: Unspecified Psychotic DO Clinical Impression: 31 y.o. single, white male with a history of developmental delay and chronic seizure disorder brought in via police on secondary to somatic and persecutory delusions, decreased weight and inability to care for himself in the community. Plan - Plan Treatment Plan: Name: POORNIMA CUEVAS Birthdate: 1985 [id number] The patient's affect appears to be improved. Appreciate Neurology input. EEG negative. Will increase risperidone from 1 to 2mg nightly. Continue to treat on the inpatient basis. Continued Medication Management: Continue Outpt Medication Medications: Current Medications Acetaminophen (Tylenol Tab*) 650 mg PO Q4H PRN PRN Reason: PAIN or TEMP > 101 F Al Hydrox/Mg Hydrox/Simethicone (Maalox Plus*) 30 ml PO Q4H PRN PRN Reason: INDIGESTION Device (Nicotine Mouth Piece*) 1 each INH .USE WITH NICOTROL PRN PRN Reason: CRAVING Last Admin: 03/17/17 21:32 Dose: 1 each Divalproex Sodium (Depakote Er Tab(*)) 500 mg PO BID [facility] Last Admin: 03/19/17 09:40 Dose: 500 mg Multivitamins (Theragran Tab*) 1 tab PO DAILY [facility] Last Admin: 03/19/17 09:40 Dose: 1 tab Nicotine (Nicotine Inhaler*) 10 mg INH Q2H PRN PRN Reason: CRAVING Nicotine (Nicotine Patch 14 Mg/24 Hr*) 1 patch TRANSDERM DAILY [facility] Last Admin: 03/19/17 09:40 Dose: 1 patch Pharmacy Profile Note (Nicotine Patch Removal Note*) 1 note FOLLOW UP 0600 [facility] Last Admin: 03/19/17 06:00 Dose: Not Given Pharmacy Profile Note (Nicotine Patch Removal Note*) 1 note PATCH OFF 2100 [facility] Last Admin: 03/18/17 21:45 Dose: 1 note Risperidone (Risperdal*) 2 mg PO BEDTIME [facility] Topiramate (Topamax(*)) 100 mg PO QAM [facility] Last Admin: 03/19/17 09:41 Dose: 100 mg Topiramate (Topamax(*)) 200 mg PO BEDTIME [facility] Last Admin: 03/18/17 21:29 Dose: 200 mg - Discharge Plan Discharge Plan: Inpatient Hospitalization
--- NOTE | 2017-03-19 13:01 | PN ---
PROGRESS NOTE: DATE OF PROGRESS NOTE: 03/19/17 CURRENT LOCATION: Room 207, bed 2. SUBJECTIVE: Overnight, there were no reported problems. I spoke with the nurse taking care of him as well as the patient. He states that he slept well. There were no reported seizures. This morni ng he feels better. He is sitting up in his bed although he does note that he likes to stay by hims elf and is not very social. He denies any pain. He has had no urinary incontinence. He has no conf usion this morning and does not feel somnolent. He has been taking his medications as directed and has been compliant with his treatment to date. OBJECTIVE: Vital signs: Temp of 98.9, pulse of 93, respiratory rate of 16, pulse ox of 100%, blood pressure of 83/50 to 109/65. In general, he is a well-developed although very thin gentleman, in n o acute distress. He is sitting up on his bed. He is pleasant, somewhat disheveled. He is normocep halic. He has excoriations along his scalp on the front. His sclerae anicteric. Mucous membranes are dry, poor dentition. Neck: Supple. No thyromegaly. No carotid bruits. Chest: Clear to ausc ultation bilaterally. Cardiovascular: Regular rate and rhythm. Abdomen: Scaphoid, nontender. Ext remities: No clubbing, cyanosis or edema. Neurologic: He is awake, alert, oriented x3. Speech is fluent. There is no dysarthria. Repetition is intact. Cranial nerves: Pupils are equal, round, an d reactive to light. His extraocular muscles are intact. Visual louis are full. Face is symmetri c. Sensation is intact bilaterally. Hearing is intact bilaterally. Palate elevates symmetrically. Tongue is midline. Motor exam: He is moving all extremities antigravity. No drift. 5/5 througho ut. DTRs 1+ and symmetric in the upper and lower extremities. Sensation intact to light touch and pinprick in all four extremities. Gait, he is having no problems walking. LABORATORY AND DIAGNOSTIC DATA: EEG is pending. No new lab work this morning. ASSESSMENT AND PLAN: Mr. Barillas is a 31-year-old gentleman with a known history of seizures fo llowed by Dr. Couch in clinic. Has had various medication changes, currently on Depakote 500 b.i .d. and Topamax 500 daily divided. He was admitted to the Inpatient Psychiatric Unit with worsening hallucinations, paranoid thoughts. He felt that he had bugs all over his body, felt that he had mo ld in his lungs. No seizure activity in the last several days. He was on Risperdal, which had been started by psychiatrist that was increased to 1 mg at bedtime. Today, he looks much better, more a wake, alert. He is wanting to go home and states that he is not having any current hallucinations. I did discuss with him, my thoughts regarding his care. I think at this point, we will continue hi s Depakote and Topamax unchanged. My suspicion is that he has underlying bipolar disease, which has been masked by his Depakote for some time. As the dose has been decreased, he is now having more b ipolar symptoms with some psychotic features. Alternatively, he could be suffering from ongoing sei zure activity with unusual behavior. The plan is for him to be admitted to the EMU on 04/02/17 for long-term monitoring. At that point, I think we will have a better idea about underlying seizure ac tivity and may make further adjustments to his medications, but for now we will keep his medication unchanged. I talked with his aunt in detail yesterday and explained the plan and she is in agreemen t. She will make sure that he shows up for his EMU appointment on 04/02/17. I defer discharge janetjolynn stewardon to his primary treating psychiatrist and he will see Dr. Couch after his EMU visit. [id number]/[facility] #: [id number]
[2017-03-19] MEDS: risperiDONE TAB* 1 MG PO SCH (22:00)
[2017-03-19] MEDS: Nicotine Patch Removal NOTE PATCH OFF SCH (22:27)
[2017-03-20] MEDS: Nicotine Patch Removal NOTE FOLLOW UP SCH (06:00)
[2017-03-20 08:44] VITALS: BP 108/67
[2017-03-20] MEDS: Nicotine PATCH 14 MG/24 HR* PATCH TRANSDERM SCH (09:41)
[2017-03-20] MEDS: Topiramate TAB(*) 100 MG PO SCH ×2 (09:42→21:29)
[2017-03-20] MEDS: Vitamin THERAPEUTIC TAB PO SCH (09:42)
[2017-03-20] MEDS: Divalproex ER TAB(*) 500 MG PO SCH ×2 (09:42→21:28)
--- NOTE | 2017-03-20 16:55 | PN ---
Subjective - Subjective Service Type: 89359 Hosp care 15 min low complexity Subjective: Was found pacing in the day room and responded to questions appropriately. Says he is doing fine, sleeping and eating well and denies hallucinations, delusions or SI/HI. Objective - Appearance Appearance: Thin Framed Dysmorphic Features: No Hygiene: Normal Grooming: Disheveled - Behavior Psychomotor Activities: Normal Exhibits Abnormal Movement: No - Attitude and Relatedness Attitude and Relatedness: Cooperative Eye Contact: Fair - Speech Quality: Unpressured Latencies: Normal Quantity: Terse - Mood Patient's Decription of Mood: "Fine" - Affect Observed Affect: Non-labile Affect Consistent with: Euthymia - Thought Process Patient's Thought Process: Coherent, Impoverished Thought Content: No Passive Wish, No Suicidal Planning, No Homicidal Ideation, No Paranoid Ideation - Sensorium Experiencing Hallucinations: No, Sensorium is Clear Type of Hallucinations: Visual: No, Auditory: No, Command: No - Level of Consciousness Level of Consciousness: Alert Orientation: Yes Intact, Yes Orientated to Time, Yes Orientated to Place, Yes Orientated to Person - Impulse Control Impulse Control: Intact - Insight and Judgement Insight and Judgement: Fair - Group Participation Particating in Group Activities: No - Medication Management Medication Management Adherence: Yes Assessment - Assessment Merits Inpatient Hospitalization: Consolidate Improvements, Pending Safe DC Plan Inpatient DSM-IV Dx: Unspecified Psychotic DO Plan - Plan Treatment Plan: Name: POORNIMA CUEVAS Birthdate: 1985 [id number] Continued Medication Management: Continue Outpt Medication Medications: Current Medications Acetaminophen (Tylenol Tab*) 650 mg PO Q4H PRN PRN Reason: PAIN or TEMP > 101 F Al Hydrox/Mg Hydrox/Simethicone (Maalox Plus*) 30 ml PO Q4H PRN PRN Reason: INDIGESTION Device (Nicotine Mouth Piece*) 1 each INH .USE WITH NICOTROL PRN PRN Reason: CRAVING Last Admin: 03/17/17 21:32 Dose: 1 each Divalproex Sodium (Depakote Er Tab(*)) 500 mg PO BID [facility] Last Admin: 03/20/17 09:42 Dose: 500 mg Multivitamins (Theragran Tab*) 1 tab PO DAILY [facility] Last Admin: 03/20/17 09:42 Dose: 1 tab Nicotine (Nicotine Inhaler*) 10 mg INH Q2H PRN PRN Reason: CRAVING Nicotine (Nicotine Patch 14 Mg/24 Hr*) 1 patch TRANSDERM DAILY [facility] Last Admin: 03/20/17 09:41 Dose: 1 patch Pharmacy Profile Note (Nicotine Patch Removal Note*) 1 note FOLLOW UP 0600 [facility] Last Admin: 03/20/17 06:00 Dose: Not Given Pharmacy Profile Note (Nicotine Patch Removal Note*) 1 note PATCH OFF 2100 [facility] Last Admin: 03/19/17 22:27 Dose: Not Given Risperidone (Risperdal*) 2 mg PO BEDTIME [facility] Last Admin: 03/19/17 22:00 Dose: 2 mg Topiramate (Topamax(*)) 100 mg PO QAM [facility] Last Admin: 03/20/17 09:42 Dose: 100 mg Topiramate (Topamax(*)) 200 mg PO BEDTIME [facility] Last Admin: 03/19/17 22:01 Dose: 200 mg - Discharge Plan Discharge Plan: Outpatient Follow Up Outpatient Program: [facility]
[2017-03-20] MEDS: risperiDONE TAB* 1 MG PO SCH (21:29)
[2017-03-20] MEDS: Nicotine Patch Removal NOTE PATCH OFF SCH (21:39)
[2017-03-21 07:05] LABS: HDL Cholesterol 29.6 mg/dL
[2017-03-21] MEDS: Divalproex ER TAB(*) 500 MG PO SCH ×2 (09:02→21:02)
[2017-03-21] MEDS: Nicotine PATCH 14 MG/24 HR* PATCH TRANSDERM SCH (09:02)
[2017-03-21] MEDS: Topiramate TAB(*) 100 MG PO SCH ×2 (09:03→21:02)
[2017-03-21] MEDS: Vitamin THERAPEUTIC TAB PO SCH (09:03)
[2017-03-21] MEDS: Nicotine Patch Removal NOTE FOLLOW UP SCH (19:16)
[2017-03-21] MEDS: risperiDONE TAB* 1 MG PO SCH (21:01)
[2017-03-21] MEDS: Nicotine Patch Removal NOTE PATCH OFF SCH (21:05)
[2017-03-22] MEDS: Nicotine Patch Removal NOTE FOLLOW UP SCH (09:27)
[2017-03-22] MEDS: Nicotine PATCH 14 MG/24 HR* PATCH TRANSDERM SCH (09:27)
[2017-03-22] MEDS: Topiramate TAB(*) 100 MG PO SCH (09:29)
[2017-03-22] MEDS: Vitamin THERAPEUTIC TAB PO SCH (09:29)
[2017-03-22] MEDS: Divalproex ER TAB(*) 500 MG PO SCH (09:29)
--- NOTE | 2017-03-23 06:14 | DS ---
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 Cannabis use disorder. [place] II: Unspecified developmental delay. [place] III: Seizure disorder. [place] IV: Moderate primary suppo rt stressors. [place] V: At the time of this admission was 40 and at the time of discharge is 60. CONDITION AT THE TIME OF DISCHARGE: Stable. The patient is denying suicidal or homicidal ideations and has done so throughout his hospital stay. He has been safe on all checks. He is observed to b e more social, more interactive on the milieu, exiting his room, talking with peers. He shows no fu rther evidence of tactile hallucinations. He is not scratching his scalp. No longer believes that he is infested with lice. Furthermore, he has experienced resolution of his psychotic thought proce ss. He denies that anyone at his neighborhood is attempting to hurt him or spy on him. He is futur e oriented stating that he is looking forward to returning home and he understands that he has a [facility] extended EEG monitoring appointment on the 02 of April. He is also willing to follow up [facility] mental health services in the community. Furthermore, he has tolerated the increase in his rispe ridone therapy quite well and feels that he could be adequately served receiving treatment on an out patient basis. At this time, we have no legal justification for keeping Cuco Barillas any furthe r, and we are discharging him to outpatient followup. MENTAL STATUS EXAM: The patient is a young white male, who looks somewhat undernourished. He is ba lding with several scratches on his scalp that are well healing. He is dressed in black shirt and p ants, makes good eye contact. He is easy to establish a rapport with. Mood is euthymic. Full affe ct. Thought process is linear and goal directed. Thought content is significant for his desire to leave the hospital. He continues to deny suicidal or homicidal ideations. He denies auditory or vi sual hallucinations. Thought content is negative for delusional ideation. Insight and judgment pauline ear to be fair given his willingness to follow up with outpatient treatment. Cognitively, he is rosa ke and alert with what would appear to be an average intellect. DISCHARGE INSTRUCTIONS: To the patient are as follows: A. Medications: He takes Topamax 100 mg in the morning and 200 mg in the evening. He takes Depakot e 500 mg twice daily. He takes risperidone 2 mg p.o. q.h.s. He is agreeable to continuation of belem otine replacement therapy including nicotine inhaler 10 mg inhaled q.2 hours p.r.n. and nicotine pat ch 14 mg transdermal daily. B. Diet is regular. C. Activities as tolerated. The patient is agreeable to continue nicotine replacement therapy with both an inhaler and a patch. There are no laboratory or diagnostic studies pending at the time of discharge. D. Followup care: The patient will follow up with his neurologist, Hodan Couch MD within 2 week s of discharge. He is also scheduled for EMU admission on 04/02/17 for long-term EEG monitoring. I n addition, he will be following up with [facility] within 1 week of discharge. HOSPITAL COURSE: As follows: A: Reason for admission: The patient is a 31-year-old single white male with a history of developm ental delay and epilepsy, who arrives having been brought in on a 9.39 status secondary to several m onths of worsening paranoia and deficits in self-care. The patient is somewhat limited as a histori an. My understanding is that he resides with an aunt. He does have a history of seizures and has h ad several visits to our emergency room since January of 2017 due to seizure activity followed by psy chotic behavior. He has had 4 mental health evaluations, the first being on 02/11/17, followed by 0 02/27/17, and again on 03/05/17, followed by his most recent presentation. The patient is highly min imizing towards these concerns, so we rely on family for collateral information. They indicate that in December his neurologist, Dr. Hodan Couch, changed some of his anticonvulsant medications and sinc e then he has been experiencing seizures and unusual behaviors, for example, Cuco is reported to be paranoid, hearing voices, thinking that neighbors are spying on him and shooting him in the buttocks with a BB gun. He has been obsessively showering and washing his hands. He has been scratching hi s temples in order to get a lice, although no lice has been found in his hair. In addition, he has not been eating, had been losing weight, and sleeping more. His aunt Sin reported that the patient has also been having more seizures. On examination, he is calm and cooperative, but lying on his side, not making much eye contact. He will only state at this time that he wishes to leave the hosp ital and does not believe that this is a benefit to him. He was able to speak with the neurologist consulting on the patient's care, who was Dr. Stoney Castro, who indicated to me that he would be reaching out to Dr. Couch to gather further history. B: Psychiatric treatment rendered: The patient was admitted to the adult behavioral health unit wh ere he was placed on q.30 minutes checks for his own safety. As previously mentioned, we did get a hospital consult by neurologist, Dr. Stoney Castro. Dr. Castro indicated his intention after [facility] assessment that he would maintain Mr. Barillas on his current Topamax and Depakote. Dr. Castro would further surmise that perhaps now that the patient is on a lower dose of Depakote that that re vealed some type of underlying bipolar condition, an EEG was ordered, which was negative for any sei zure activities. As previously mentioned, he already does have a long-term EEG monitoring inpatient admission, which is pending for 04/02/17. We were able to increase the patient's Risperidone from 1 mg to 2 mg. His paranoia seemed to decrease and he became more socially active on our unit. He e xperienced a resolution of paranoid ideation regarding his neighbors. He also demonstrated marked re duction in showering and washing his hands as well as discontinuation of scratching his temples. He was observed several times eating with peers and did not seem to be restricting his caloric intake. The patient tolerated his increase in risperidone well and he is agreeable to following up on an o utpatient basis. Our social studies teacher has had contact with his aunt Sin, who indicates that she is re stephanie and willing to take him home and is in agreement with the outpatient followup plan that will inc lude him receiving primary psychiatric services at the [facility] as well as further neurological care including admission to the EMU on the 02 of April. At this time, we see no further justification for involuntary hospitalizations and Mr. Barillas is set for discha rge this afternoon with his mother arriving to pick him up. [id number]/[facility] #: [id number]
== END 2017-03-22 13:20 | disposition home or self-care (01) | DRG 101 ==
LOC: ED 11:27 → BSU 22:54
PROVIDERS: ADMIT Psychiatry & Neurology Psychiatry; ATTEND Psychiatry & Neurology Psychiatry
DX: G40.909 Epilepsy, unspecified, not intractable, without status epilepticus (principal); F06.8 Other specified mental disorders due to known physiological condition; F12.10 Cannabis abuse, uncomplicated; R62.50 Unspecified lack of expected normal physiological development in childhood; F17.210 Nicotine dependence, cigarettes, uncomplicated
CPT/HCPCS: 36415; 70450; 80053; 80061; 80164; 80201; 80307; 81003; 82550; 83036; 83735; 85025; 95816; 99222; 99231; 99238; A9270-GY

== ENCOUNTER 2017-03-28 22:49 | Emergency (ER) | payer MEDICARE, MEDICAID ==
[2017-03-29 01:24] VITALS: BP 119/73
--- NOTE | 2017-03-30 12:42 | ED ---
Cass Palmer Alfonso, scribed for Joe Aaron MD on 03/29/17 at 0041 . Complex/Multi-Sys Presentation - HPI Summary HPI Summary: This patient is a 31 year old M presenting to [facility] accompanied by aunt with a chief complaint of bilateral ear ringing since 2129 tonight. Aunt states our neighbors baby monitors were bothering him. The patient rates the pain 0/10 in severity. Symptoms alleviated by nothing. Patient reports left ear discomfort. Patient denies headache. He reports caffeine use. Aunt reports the patient recently began prescriptions of Risperdal and Fludrocortisone. PMHx includes epilepsy. - History Of Current Complaint Chief Complaint: EDEarPain Time Seen by Provider: 03/29/17 00:33 Hx Obtained From: Patient Onset/Duration: Sudden Onset, Lasting Minutes - 2129 tonight, Still Present Timing: Constant Location: Pain At: - ear Aggravating Factor(s): "our neighbors baby monitors were bothering him" Alleviating Factor(s): nothing Associated Signs And Symptoms: Positive: Other - left ear discomfort. Patient denies headache. - Allergies/Home Medications Allergies/Adverse Reactions: Allergies Allergy/AdvReac Type Severity Reaction Status Date / Time Carbamazepine [From Tegretol] Allergy Unknown Unknown Verified 03/28/17 23:10 Reaction Details Diazepam [From Valium] Allergy Unknown Unknown Verified 03/28/17 23:10 Reaction Details Phenobarbital Allergy Unknown Unknown Verified 03/28/17 23:10 Reaction Details Phenytoin [From Dilantin] Allergy Unknown Unknown Verified 03/28/17 23:10 Reaction Details Alprazolam [From Xanax] Allergy Itching Verified 03/28/17 23:10 Quetiapine [From Seroquel] Allergy See Comment Verified 03/28/17 23:10 PMH/Surg Hx/FS Hx/Imm Hx Endocrine/Hematology History: Denies: Hx Diabetes, Hx Thyroid Disease Cardiovascular History: Denies: Hx Hypertension, Hx Pacemaker/ICD Respiratory History: Reports: Hx Asthma, Hx Chronic Bronchitis, Hx Chronic Obstructive Pulmonary Disease (COPD) GI History: Denies: Hx Ulcer Sensory History: Denies: Hx Contacts or Glasses, Hx Hearing Aid Opthamlomology History: Denies: Hx Contacts or Glasses Neurological History: Reports: Hx Headaches, Hx Seizures, Other Neuro Impairments/Disorders - epilepsy Psychiatric History: Reports: Hx of Violent Episodes Against Others Denies: Hx Eating Disorder, Hx Panic Disorder, Hx Schizophrenia - Surgical History Surgery Procedure, Year, and Place: RIGHT ELBOW fracture repair Infectious Disease History: No Infectious Disease History: Denies: Hx Clostridium Difficile, Hx Hepatitis, Hx Human Immunodeficiency Virus (HIV), Traveled Outside the [place] in Last 30 Days - Family History Known Family History: Positive: Other - Epilepsy in father - Social History Alcohol Use: Rare Alcohol Amount: few times per month Hx Substance Use: Yes Substance Use Type: Reports: None Hx Tobacco Use: Yes Smoking Status (MU): Current Every Day Smoker Type: Cigarettes Amount Used/How Often: PPD Length of Time of Smoking/Using Tobacco: 15 years Have You Smoked in the Last Year: Yes Review of Systems Negative: Fever Positive: Other - bilateral ear ringing and left ear discomfort Negative: Headache All Other Systems Reviewed And Are Negative: Yes Physical Exam - Summary Physical Exam Summary: VITAL SIGNS: Reviewed. GENERAL: Patient is a well-developed and nourished male who is lying comfortable in the stretcher. Patient is not in any acute respiratory distress. HEAD AND FACE: No signs of trauma. No ecchymosis, hematomas or skull depressions. No sinus tenderness. EYES: PERRLA, EOMI x 2, No injected conjunctiva, no nystagmus. EARS: Hearing grossly intact. Ear canals and tympanic membranes are within normal limits. MOUTH: Oropharynx within normal limits. NECK: Supple, trachea is midline, no adenopathy, no JVD, no carotid bruit, no c- spine tenderness, neck with full ROM. CHEST: Symmetric, no tenderness at palpation LUNGS: Clear to auscultation bilaterally. No wheezing or crackles. CVS: Regular rate and rhythm, S1 and S2 present, no murmurs or gallops appreciated. ABDOMEN: Soft, non-tender. No signs of distention. No rebound no guarding, and no masses palpated. Bowel sounds are normal. EXTREMITIES: FROM in all major joints, no edema, no cyanosis or clubbing. NEURO: Alert and oriented x 3. No acute neurological deficits. Speech is normal and follows commands. SKIN: Dry and warm Triage Information Reviewed: Yes Vital Signs On Initial Exam: Initial Vitals Temp Pulse Resp BP Pulse Ox 98.3 F 97 16 132/82 100 03/28/17 23:08 03/28/17 23:08 03/28/17 23:08 03/28/17 23:08 03/28/17 23:08 Vital Signs Reviewed: Yes - [place] Coma Scale Best Eye Response: 4 - Spontaneous Best Motor Response: 6 - Obeys Commands Best Verbal Response: 5 - Oriented Diagnostics - Vital Signs Vital Signs Temp Pulse Resp BP Pulse Ox 03/28/17 23:08 98.3 F 97 16 132/82 100 - Laboratory Lab Statement: Any lab studies that have been ordered have been reviewed, and results considered in the medical decision making process. Complex Multi-Symp Course/Dx Assessment/Plan: This patient is a 31 year old M presenting to [facility] accompanied by aunt with a chief complaint of bilateral ear ringing since 2129 tonight. Aunt states our neighbors baby monitors were bothering him. The patient rates the pain 0/10 in severity. Symptoms alleviated by nothing. Patient reports left ear discomfort. Patient denies headache. He reports caffeine use. Aunt reports the patient recently began prescriptions of Risperdal and Fludrocortisone. PMHx includes epilepsy. The patient reported he is hearing sounds of a monitor for a neighbor. The patients aunt reports the monitor is far from the house. Therefore, I do not think the patient has tinnitus and that he has auditory hallucinations which are very typical for him. I decided not to do a Brain CT because the patient last had one on . Therefore, the patient will be discharged home with PCP follow up. The patient and aunt are agreeable with this plan. The patient is hemodynamically stable and alert and oriented x3. - Diagnoses Provider Diagnoses: Auditory hallucination Discharge - Discharge Plan Condition: Stable Disposition: HOME Patient Education Materials: Hallucinations (ED) Referrals: Butch Reyes MD [Primary Care Provider] - 3 Days Additional Instructions: RETURN TO THE EMERGENCY DEPARTMENT FOR CHANGING OR WORSENING SYMPTOMS. The documentation as recorded by the Cass inman Alfonso accurately reflects the service I personally performed and the decisions made by me, Joe Aaron MD.
== END 2017-03-29 01:24 | disposition home or self-care (01) ==
LOC: ED 22:49
DX: R44.0 Auditory hallucinations (principal); F17.210 Nicotine dependence, cigarettes, uncomplicated
CPT/HCPCS: 99282

== ENCOUNTER → 2017-03-31 00:45 | Emergency (ER) | payer MEDICARE, MEDICAID ==
[~2017-03-31 00:45] MED LIST changes: +Divalproex DR TAB(*) 500 MG PO ONE; -Divalproex ER TAB(*) 500 MG ONE; +Nicotine PATCH 21 MG/24 HR* PATCH TRANSDERM ONE; +Potassium Chlor TAB* 20 MEQ TAB.ER PO ONE; -Topiramate TAB(*) 100 MG ONE; +Topiramate TAB(*) 100 MG PO ONE
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
[2017-03-31 02:48] LABS: Hematocrit 34 % (42-52); Hemoglobin 11.2 g/dl (14.0-18.0); Mean Corpuscular HGB Conc 33 g/dl (31-36); Mean Corpuscular Hemoglobin 30 pg (27-31); Mean Corpuscular Volume 89 fL (80-94); Mean Platelet Volume 7 um3 (7.4-10.4); Red Blood Count 3.77 10^6/ul (4.0-5.4); Red Cell Distribution Width 15 % (10.5-15); White Blood Count 10.6 10^3/ul (3.5-10.8)
[2017-03-31 02:59] LABS: ALT 15 U/L (7-52); AST 21 U/L (13-39); Alkaline Phosphatase 74 U/L (34-104); Anion Gap 8 mmol/L (2-11); BUN/Creatinine Ratio 13.2 (8-20); Blood Urea Nitrogen 7 mg/dL (6-24); CO2 Carbon Dioxide 23 mmol/L (22-32); Chloride 98 mmol/L (101-111); EGFR African American 230.3 (>60); Globulin 3.5 g/dL (2-4); Glucose 127 mg/dL (70-100); Sodium 129 mmol/L (133-145); Total Protein 7.5 g/dL (6.4-8.9)
[2017-03-31 03:00] LABS: Acetaminophen < 15 mcg/mL; Alcohol < 10 mg/dL (<10); Salicylate < 2.50 mg/dL (<30)
[2017-03-31 03:02] LABS: Urine Bacteria Absent (Absent); Urine Bilirubin Negative (Negative); Urine Glucose Negative (Negative); Urine Nitrite Negative (Negative)
[2017-03-31 03:07] LABS: Benzodiazepine Urine Screen None Detected (None Detect)
[2017-03-31 03:28] LABS: TSH (Thyroid Stimulating Horm) 2.27 mcIU/mL (0.34-5.60)
[2017-03-31 09:18] VITALS: BP 129/65
--- NOTE | 2017-03-31 10:29 | PN ---
ED Flex Patient Progress Note Subjective: This is a 31 year-old white, single male with a history of developmental delay and seizure disorder, recently discharged from the [facility] secondary to seizure- related psychotic symptoms, who returns to the hospital with continued seizure activity and paranoia. The patient is currently non-ictal and denies psychotic symptoms. He has been taking his anticonvulsants and risperidone as directed. Had one intake appointment at [facility] but hasn't seen a prescribing clinician yet. Wants to go home. 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 D/C to home. Will increase risperidone to 3mg PO qhs and entered ambulatory script to [facility] on [address]. Follow up with Neurology and [facility]. Vital Signs Temp Pulse Resp BP Pulse Ox 99.0 F 116 16 129/65 98 03/31/17 09:16 03/31/17 09:16 03/31/17 09:16 03/31/17 09:16 03/31/17 09:16 Lab Results - Entire Visit 03/31/17 03/31/17 03/31/17 01:35 01:35 01:10 WBC 10.6 RBC 3.77 L Hgb 11.2 L Hct 34 L MCV 89 MCH 30 MCHC 33 RDW 15 Plt Count 631 H D MPV 7 L Neut % (Auto) 79.2 Lymph % (Auto) 12.1 L [place] % (Auto) 7.7 Eos % (Auto) 0.5 Baso % (Auto) 0.5 Absolute Neuts (auto) 8.4 H Absolute Lymphs (auto) 1.3 Absolute Monos (auto) 0.8 Absolute Eos (auto) 0.1 Absolute Basos (auto) 0.1 Absolute Nucleated RBC 0.01 Nucleated RBC % 0.1 Sodium 129 L Potassium 3.0 L Chloride 98 L Carbon Dioxide 23 Anion Gap 8 BUN 7 Creatinine 0.53 L Est GFR ( Amer) 230.3 Est GFR (Non-Af Amer) 179.0 BUN/Creatinine Ratio 13.2 Glucose 127 H Calcium 9.0 Total Bilirubin 0.20 AST 21 ALT 15 Alkaline Phosphatase 74 Total Protein 7.5 Albumin 4.0 Globulin 3.5 Albumin/Globulin Ratio 1.1 TSH 2.27 Urine Color Yellow Urine Appearance Cloudy Urine pH 7.0 Ur Specific [place] 1.008 L Urine Protein Negative Urine Ketones Negative Urine Blood 2+ H Urine Nitrate Negative Urine Bilirubin Negative Urine Urobilinogen Negative Ur Leukocyte Esterase Negative Urine WBC (Auto) Absent Urine RBC (Auto) Trace(0-2/hpf) Urine Bacteria Absent Urine Glucose Negative Salicylates < 2.50 Urine Opiates Screen Acetaminophen < 15 Ur Barbiturates Screen Valproic Acid 78.0 Ur Phencyclidine Scrn Ur Amphetamines Screen U Benzodiazepines Scrn Urine Cocaine Screen U Cannabinoids Screen Serum Alcohol < 10 03/31/17 01:10 WBC RBC Hgb Hct MCV MCH MCHC RDW Plt Count MPV Neut % (Auto) Lymph % (Auto) [place] % (Auto) Eos % (Auto) Baso % (Auto) Absolute Neuts (auto) Absolute Lymphs (auto) Absolute Monos (auto) Absolute Eos (auto) Absolute Basos (auto) Absolute Nucleated RBC Nucleated RBC % Sodium Potassium Chloride Carbon Dioxide Anion Gap BUN Creatinine Est GFR ( Amer) Est GFR (Non-Af Amer) BUN/Creatinine Ratio Glucose Calcium Total Bilirubin AST ALT Alkaline Phosphatase Total Protein Albumin Globulin Albumin/Globulin Ratio TSH Urine Color Urine Appearance Urine pH Ur Specific [place] Urine Protein Urine Ketones Urine Blood Urine Nitrate Urine Bilirubin Urine Urobilinogen Ur Leukocyte Esterase Urine WBC (Auto) Urine RBC (Auto) Urine Bacteria Urine Glucose Salicylates Urine Opiates Screen None detected Acetaminophen Ur Barbiturates Screen None detected Valproic Acid Ur Phencyclidine Scrn None detected Ur Amphetamines Screen None detected U Benzodiazepines Scrn None detected Urine Cocaine Screen None detected U Cannabinoids Screen Presumptive positive H Serum Alcohol
== END ==
LOC: ED 00:45
DX: F41.9 Anxiety disorder, unspecified (principal); R56.9 Unspecified convulsions; F17.210 Nicotine dependence, cigarettes, uncomplicated
CPT/HCPCS: 36415; 80053; 80164; 80307; 80320; 80329; 81003; 81015; 84443; 85025; 93005; 99284; A9270-GY; G0480

== ENCOUNTER 2017-04-02 13:54 | Inpatient (IN) | payer MEDICARE, MEDICAID ==
[2017-04-02] MEDS ORDERED: LORazepam INJ* 2 MG/ML 1 ML VIAL IV PRN (17:19)
[2017-04-02] MEDS ORDERED: diPHENhydraMINE PO* 25 MG PO PRN (17:19)
[2017-04-02] MEDS ORDERED: Acetaminophen TAB* 325 MG PO PRN (17:19)
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
[2017-04-02] MEDS ORDERED: Mouth Piece, Nicotine* 1 EACH CARTRIDGE INH ONE (20:00)
[2017-04-02] MEDS: Nicotine PATCH 14 MG/24 HR* PATCH TRANSDERM SCH (20:15)
[2017-04-02] MEDS: Nicotine Inhaler* 10 MG AMP INH PRN (20:18)
[2017-04-02] MEDS: Divalproex ER TAB(*) 500 MG PO SCH (20:19)
[2017-04-02] MEDS: Topiramate TAB(*) 100 MG PO SCH (20:21)
[2017-04-02] MEDS ORDERED: risperiDONE TAB* 2 MG PO SCH (21:00)
[2017-04-03] MEDS ORDERED: Pneumococcal *Vac Polyvalent 0.5 ML VIAL IM ONE (09:00)
[2017-04-03] MEDS: Divalproex ER TAB(*) 500 MG PO SCH ×2 (09:56→21:15)
[2017-04-03] MEDS: Fludrocortisone Acetate TAB* 0.1 MG PO SCH (09:58)
[2017-04-03] MEDS: Topiramate TAB(*) 100 MG PO SCH ×2 (09:58→21:15)
[2017-04-03] MEDS: Nicotine Inhaler* 10 MG AMP INH PRN (11:21)
--- NOTE | 2017-04-03 12:58 | PN ---
Epilepsy Service Progress Note - Subjective DOS 04/03/17 Patient had an episode of feeling his heart racing, not typical for his events, but he pressed the button. Denies hallucinations or paranoid thinking. - Medications Active Medications: Acetaminophen (Tylenol Tab*) 650 mg PO Q6H PRN PRN Reason: PAIN Diphenhydramine HCl (Benadryl Po*) 25 mg PO Q6H PRN PRN Reason: ITCHING Divalproex Sodium (Depakote Er Tab(*)) 500 mg PO BID [facility] Last Admin: 04/03/17 09:56 Dose: 500 mg Fludrocortisone Acetate (Florinef Tab*) 0.1 mg PO QAM [facility] Last Admin: 04/03/17 09:58 Dose: 0.1 mg Lorazepam (Ativan Inj*) 1 mg IV Q8H PRN PRN Reason: SEE COMMENTS Nicotine (Nicotine Inhaler*) 10 mg INH Q2H PRN PRN Reason: CRAVING Last Admin: 04/03/17 11:21 Dose: 10 mg Nicotine (Nicotine Patch 14 Mg/24 Hr*) 1 patch TRANSDERM DAILY [facility] Last Admin: 04/02/17 20:15 Dose: 1 patch Pharmacy Profile Note (Nicotine Patch Removal Note*) 1 note PATCH OFF 2100 [facility] Topiramate (Topamax(*)) 200 mg PO BEDTIME [facility] Last Admin: 04/02/17 20:21 Dose: 200 mg Topiramate (Topamax(*)) 100 mg PO QAM [facility] Last Admin: 04/03/17 09:58 Dose: 100 mg EMU Diagnostics - Diagnostic Most Recent Vital Signs: Vital Signs: Temp Pulse Resp BP Pulse Ox 98.2 F 98 18 116/69 100 04/03/17 08:21 04/03/17 08:21 04/03/17 08:21 04/03/17 08:21 04/02/17 15:02 Interim video-EEG long-term monitoring report: #01 04/02: PDR 8. Some occasional questionable sharp features in the right temporal region but not definitively epileptiform. EEG normal during episode of tachycardia but HR increased from a baseline of ~100 to ~140. EMU Exam - Exam Physical/Neurological Exam: Physical Exam: General: Well appearing in no acute distress. Thin. Eating lunch MSK: no extremity deformities Derm: multiple scars over upper back and hands related to previous picking behavior Neurological Exam: Mental Status: Awake and alert. Oriented to person, place, and time. Fluent but with slight speech impediment. Comprehension intact. Affect restricted. Denies hallucinations currently. Feels safe here Cranial Nerves: Visual louis full to confrontation. Pupils were equal, round, and reactive constricting from 3mm to 2mm. Versions were full and without nystagmus. Facial musculature and sensation were symmetric. Hearing grossly intact to finger rub. Palate was upgoing bilaterally. Tongue was midline. Shoulder shrug was symmetric. Motor: Bulk, tone, and strength were normal throughout. Sensory: Sensation to light touch intact. Romberg was deferred. Coordination: Finger to nose intact. Reflexes: not retested Gait: not observed. EMU Progress Note Assessment/P - Assessment/Plan Assessment: 31 year old man with history of epilepsy admitted for new onset hallucinations and paranoid ideations with the question of whether this could be jovita-ictal phenomena versus primary psychiatric disorder versus adverse medication effect. Patient currently denies hallucinations. No ictal patterns noted. Patient had one atypical event of feeling his heart racing, which was non-epileptic. No typical events recorded yet. Plan: * Continue assisted video EEG monitoring to capture typical episodes * Seizure precautions * will hold risperidone * will continue current doses of AEDs (topiramate and Depakote) * Ativan 1mg IV prn GTC
--- NOTE | 2017-04-03 13:09 | EEG ---
NURSING HOME VIDEO/EEG MONITORING - Monitoring Monitoring Start Date: 04/02/17 Current Monitoring Session: 04/02/17 to [] EEG Clinical Indication: Cuco Barillas is a 31 year old right-handed man with a history of intellectual disability and epilepsy who has recently started experiencing new onset psychiatric symptoms including hallucinations (auditory and tactile) as well as paranoid ideations on a nearly daily basis. He has been to the emergency room several times over the past 2 months and was admitted to the [facility] as well. He was started on risperidone. The etiology of these new onset psychiatric symptoms is not clear and the differential includes primary psychiatric disorder, adverse medication effect and jovita-ictal phenomenon. He is treated with Depakote and Topamax. EEG monitoring was requested in order to evaluate for subclinical seizures in relation to these symptoms. Introduction: INTRODUCTION: The EEG was monitored from 21 scalp electrodes. Nineteen electrodes consisted of the standard parasagittal, temporal and midline leads of the International 10 -20 system. In addition, special electrodes FT9/T1 and FT10/T2 were placed. EEG data were recorded on an [employer] system with simultaneous MPEG-4 digital video recording of patient behavior. EEG recording was in a monopolar montage with all electrodes referenced to FCz. Significant behavioral events were signaled by an event button, or putative electrical seizure events were detected by a computer program. All EEG data were reviewed in their entirety on a monitor with reconstruction of montages and adjustments of sensitivity and filtering. Simultaneous patient behavior was viewed on an adjacent monitor and correlated with the EEG. - Medications Active Medications: Acetaminophen (Tylenol Tab*) 650 mg PO Q6H PRN PRN Reason: PAIN Diphenhydramine HCl (Benadryl Po*) 25 mg PO Q6H PRN PRN Reason: ITCHING Divalproex Sodium (Depakote Er Tab(*)) 500 mg PO BID [facility] Last Admin: 04/03/17 09:56 Dose: 500 mg Fludrocortisone Acetate (Florinef Tab*) 0.1 mg PO QAM [facility] Last Admin: 04/03/17 09:58 Dose: 0.1 mg Lorazepam (Ativan Inj*) 1 mg IV Q8H PRN PRN Reason: SEE COMMENTS Nicotine (Nicotine Inhaler*) 10 mg INH Q2H PRN PRN Reason: CRAVING Last Admin: 04/03/17 11:21 Dose: 10 mg Nicotine (Nicotine Patch 14 Mg/24 Hr*) 1 patch TRANSDERM DAILY [facility] Last Admin: 04/02/17 20:15 Dose: 1 patch Pharmacy Profile Note (Nicotine Patch Removal Note*) 1 note PATCH OFF 2100 [address] Topiramate (Topamax(*)) 200 mg PO BEDTIME [facility] Last Admin: 04/02/17 20:21 Dose: 200 mg Topiramate (Topamax(*)) 100 mg PO QAM [facility] Last Admin: 04/03/17 09:58 Dose: 100 mg Risperidone 2mg QHS given on 04/02 but held on 04/03 - Description Background: The waking background showed appropriate organization with clearly defined anterior-posterior voltage and frequency gradients. There was a defined posterior dominant rhythm of 8 Hertz at the beginning of the recording period, which was symmetrical and showed normal reactivity but is slightly slower than expected for age. As medications were weaned, the PDR increased to 9 Hz, in the normal range. Anteriorly, there was the expected pattern of lower voltage and more irregular theta and beta rhythms. During drowsiness and sleep, there are occasional periods of slowing with sharp features in the right frontotemporal region. The slowing is polymorphic in the range of 2 to 5 Hz and intermixed with sharp features which are not epileptiform in nature. The slowing primarily affects F8 and T2 but can also involve T4. At times, the slowing is rhythmic at 3 Hz, as described below. The sleep background was appropriately organized with well-developed spindles and vertex waves indicative of stage 2 sleep. These sleep transients showed appropriate morphology and were bilaterally synchronous and symmetrical. Development of diffuse delta range frequencies with dropout of stage 2 architecture accompanied transition to slow wave sleep, and a lower voltage mixed frequency pattern associated with eye movements was consistent with REM sleep. Intericatal Epileptiform Activity: #01 04/02: Medications: Depakote 500mg BID and Topiramate 100mg QAM and 200mg QPM. Also risperidone 2mg at HS Background as described above, with a mildly slow PDR and slowing in the right temporal region during drowsiness and sleep. There were no epileptiform abnormalities. #02 04/03: Medications: Depakote 500mg BID, topiramate 100mg QAM and 200mg QPM. Rispderidone held on 04/03 at HS. Background as above except some right temporal slowing also noted during waking at time (eg 04/03 at 14:18). The patient's sleep was noted to be significantly fragmented from approximately 0300 on 04/04 until he woke up for the day at around 0845. However, he also slept for 1.5 hours between 1930 and 2100, then fell asleep again around 2300. There were no epileptiform abnormalities. #03 04/04: Medications: Depakote 250mg BID, topiramate 100mg BID. Risperidone held #04 04/05: Medications: Depakote 250mg given AM 04/05 then d/c'd, topiramate 100mg BID continued. Risperidone held. Background as described above. He was asleep in the morning on 04/05 and some right temporal sharp waves were noted at T2 and F8 which were not definitively epileptiform in nature. He was sleep deprived overnight 04/05-04/06 and slept about 4 hours total. #05 04/06: Medications: topiramate 100mg in AM and 50mg in PM There continued to be intermittent sharply contoured slowing in the right temporal region at F8 and T2 with field to T4 and sometimes T6. This was often sharply contoured and rhythmic around 3 Hz, consistent with temporal intermittent rhythmic delta activity (TIRDA). During sleep, there were also occasional spikes with odd morphology noted in the right temporo-parietal region at P4, T4, T6 with field to O2 and sometimes to the contralateral hemisphere at O1. #06 04/07: Medications: topiramate 50mg BID There continued to be TIRDA noted when the patient became drowsy. There were some sharply contoured waves at F2 and F8 which were not definitively epileptiform in nature. Photic stimulation was performed and the response was unremarkable. #07 04/08: Medications: topiramate 50mg in AM and 200mg in PM and Depakote 500mg in PM Background demonstrated more frequent TIRDA during drowsiness and sometimes during waking, which became sharply contoured at times. In addition, there were spike discharges noted at T4 and T6 (with a field to P4 and O2), intermixed within the TIRDA which was maximal more frontally at F8 and T2. #08 04/09: Medications: Depakote 500mg BID and Topiramate 100mg QAM and 200mg QPM Ictal Activity: #01 04/02: The patient pressed the event button at 23:04 and indicated to the nurse "my heart is up". His baseline heart rate is often around 100bpm but during this time was noted to accelerate to ~140bpm. The heart rate was regular. The patient indicated this was not typical of his seizures, he just felt different so he pressed the button. He also indicated that he felt sad and like he wanted to cry. There was no EEG change. No ictal patterns noted #02 04/03: No patient events, no ictal patterns #03 04/04: #04 04/05: The patient pressed the event at 15:49 stating that he felt like his heart was racing. He was breathing heavily. He was able to state his name. He was given a recall phrase. He stated he felt dizzy and laid back in the bed. His heart rate was around 130bpm when he pressed the button. About 5 minutes prior to pressing the event button, HR was around 110bpm. He was able to follow commands. He endorsed hand tingling. At 15:55, the event button was pressed again because he reported "my heart is going back up". He was still able to follow commands. His heart rate was similar to the beginning of the event. Nursing asked him if he was feeling worried, asked him to talk more about that and he said he could not. She asked if he worried about having to go to the mental health unit (apparently he was worried this policy writer was going to send him back to the [facility]) and he said yes, but nothing else was worrying him. He asked to have someone stay with him. Nursing continued to interact with him to see how he was feeling. After a few minutes, he reported his heart rate was coming down and it was around 125bpm. He indicated that he did not typically feel this way at home. He asked for his nicotine inhaler around 16:00. He was asked how he felt and he said "all right" in a delayed fashion. He then stopped responding to nursing and stared straight ahead. The event button was pressed again at 16:01. HR was around 135bpm. I entered the room around 16:03 and patient was not able to follow any commands until 16:07 when he started coughing and then talking. He had some antigravity power in his upper extremities when he was not following commands, but would let them fall gently to the bed when they were released. The EEG was normal throughout. He had another event at 21:19, when he pressed the event button. He indicated to nursing "it feels like I'm having a seizure". He was sitting at the edge of the bed and the aide encouraged him to get back in bed, which he was able to do. He was able to state his name and follow commands. When nursing asked directly if his heart was racing he replied "a little bit". HR was in the 110s. He was breathing heavily. He never became unresponsive. EEG was unremarkable. No ictal patterns. #05 04/06: No ictal patterns, no patient events #06 /: No ictal patterns, no patient events. #07 04/08: The patient had a seizure at 16:53 on 04/08. Just prior to the seizure, he had been in stage 2 sleep. With the arousal from the sleep, there was a buildup of sharply contoured theta activity in the right temporal region which was briefly observed, but then the EEG became contaminated by movement and muscle artifact. Following this, beta range activity was noted in the right hemisphere diffusely, overriding rhythmic delta activity in the temporal region , with spike discharges punctuating the activity at 1 to 2 Hz and maximal at T4. The activity in the right temporal region increased in amplitude to >100uV, became more rhythmic and increased in frequency from 3 Hz to 5 Hz. Gradually this became intermixed with more spike and polyspike features and remained maximal in the right temporal region but rhythmic activity was noted in the right paracentral region as well. After 2 minutes, the activity had spread to the left hemisphere as well where it was most prominently noted in the frontal leads with rhythmic activity 2 to 4 Hz with intermixed spikes. After another minute, the activity in the right temporal region was characterized by a 7 to 8 Hz spiking pattern overriding 2 Hz rhythmic activity, which was well represented into the posterior temporal/parietal region as well. In the paracentral leads on the right, the activity primarily consisted of 2 to 3 Hz rhythmic activity with overriding, low amplitude alpha/beta activity. The seizure terminated abruptly after nearly 4.5 minutes and was followed by diffuse voltage suppression which gradually recovered over a period of 10 minutes. The patient was unaware of the seizure. Clinically, the seizure was rather bland. The patient woke from sleep, opened his eyes and stared ahead. He had intermittent oral automatisms and was noted to have a few vocalizations such as "huh" during the event, but mostly remained quiet and still. No patient events #08 04/09:
[2017-04-03] MEDS: Nicotine Patch Removal NOTE PATCH OFF SCH (21:10)
[2017-04-03] MEDS: Nicotine PATCH 14 MG/24 HR* PATCH TRANSDERM SCH (21:15)
[2017-04-04] MEDS: Nicotine Inhaler* 10 MG AMP INH PRN ×5 (04:12→21:59)
[2017-04-04] MEDS: Divalproex ER TAB(*) 500 MG PO SCH ×2 (10:39→20:45)
[2017-04-04] MEDS: Topiramate TAB(*) 100 MG PO SCH ×2 (10:39→20:45)
[2017-04-04] MEDS: Fludrocortisone Acetate TAB* 0.1 MG PO SCH (10:39)
--- NOTE | 2017-04-04 12:25 | PN ---
Epilepsy Service Progress Note - Subjective DOS 04/04/17 Patient admits he woke up several times during the night last night but otherwise offers no complaints. Denies psychiatric symptoms. No seizures. Did ok with not taking risperidone last night - Medications Active Medications: Acetaminophen (Tylenol Tab*) 650 mg PO Q6H PRN PRN Reason: PAIN Diphenhydramine HCl (Benadryl Po*) 25 mg PO Q6H PRN PRN Reason: ITCHING Divalproex Sodium (Depakote Er Tab(*)) 500 mg PO BID [facility] Last Admin: 04/04/17 10:39 Dose: 500 mg Fludrocortisone Acetate (Florinef Tab*) 0.1 mg PO QAM [facility] Last Admin: 04/04/17 10:39 Dose: 0.1 mg Lorazepam (Ativan Inj*) 1 mg IV Q8H PRN PRN Reason: SEE COMMENTS Nicotine (Nicotine Inhaler*) 10 mg INH Q2H PRN PRN Reason: CRAVING Last Admin: 04/04/17 04:12 Dose: 10 mg Nicotine (Nicotine Patch 14 Mg/24 Hr*) 1 patch TRANSDERM DAILY [facility] Last Admin: 04/03/17 21:15 Dose: 1 patch Pharmacy Profile Note (Nicotine Patch Removal Note*) 1 note PATCH OFF 2100 [facility] Last Admin: 04/03/17 21:10 Dose: 1 note Topiramate (Topamax(*)) 200 mg PO BEDTIME [facility] Last Admin: 04/03/17 21:15 Dose: 200 mg Topiramate (Topamax(*)) 100 mg PO QAM [facility] Last Admin: 04/04/17 10:39 Dose: 100 mg EMU Diagnostics - Diagnostic Most Recent Vital Signs: Vital Signs: Temp Pulse Resp BP Pulse Ox 97.4 F 85 18 97/62 97 04/04/17 08:04 04/04/17 08:04 04/04/17 08:04 04/04/17 08:04 04/04/17 08:04 Interim video-EEG long-term monitoring report: #01 04/02: PDR 8. Some occasional questionable sharp features in the right temporal region but not definitively epileptiform. EEG normal during episode of tachycardia but HR increased from a baseline of ~100 to ~140. #02 04/03: Similar background. No events, no seizures, no discharges. Sleep was fragmented overnight from 0300 on. EMU Exam - Exam Physical/Neurological Exam: Physical Exam: General: Well appearing in no acute distress. Thin. Was sleeping when I entered room, required light tactile stimulation to wake MSK: no extremity deformities Derm: multiple scars over upper back and hands related to previous picking behavior Neurological Exam: Mental Status: Awake and alert. Oriented to person, place, and time. Fluent but with slight speech impediment. Comprehension intact. Affect restricted. Denies hallucinations currently. Feels safe here Cranial Nerves: Visual louis full to confrontation. Pupils were equal, round, and reactive constricting from 3mm to 2mm. Versions were full and without nystagmus. Facial musculature and sensation were symmetric. Hearing grossly intact to finger rub. Palate was upgoing bilaterally. Tongue was midline. Shoulder shrug was symmetric. Motor: Bulk, tone, and strength were normal throughout. Sensory: Sensation to light touch intact. Romberg was deferred. Coordination: Finger to nose intact. Reflexes: not retested Gait: not observed. EMU Progress Note Assessment/P - Assessment/Plan Assessment: 31 year old man with history of epilepsy admitted for new onset hallucinations and paranoid ideations with the question of whether this could be jovita-ictal phenomena versus primary psychiatric disorder versus adverse medication effect. Patient currently denies hallucinations. No ictal patterns noted. Patient had one atypical event of feeling his heart racing, which was non-epileptic. No typical events recorded yet. Risperidone held last night. 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 If patient has a seizure and does not exhibit psychiatric symptoms afterward, then unlikely that seizures are causing his psychiatric symptoms. Nursing will call me with an update later. * Asked patient to avoid napping today. * Ativan 1mg IV prn GTC
[2017-04-04] MEDS: Nicotine Patch Removal NOTE PATCH OFF SCH (20:42)
[2017-04-04] MEDS: Nicotine PATCH 14 MG/24 HR* PATCH TRANSDERM SCH (20:42)
[2017-04-05] MEDS: Nicotine Inhaler* 10 MG AMP INH PRN ×3 (00:52→18:57)
[2017-04-05] MEDS: Divalproex ER TAB(*) 500 MG PO SCH (08:31)
[2017-04-05] MEDS: Fludrocortisone Acetate TAB* 0.1 MG PO SCH (08:32)
[2017-04-05] MEDS: Topiramate TAB(*) 100 MG PO SCH ×2 (08:32→20:41)
--- NOTE | 2017-04-05 14:21 | PN ---
Epilepsy Service Progress Note - Subjective DOS 04/05/17 No overnight events. Pt reported his A1 electrode was bothering him. Denies AH/ paranoid ideations. No seizures. Meds were decreased last night after he had a quiet afternoon. - Medications Active Medications: Acetaminophen (Tylenol Tab*) 650 mg PO Q6H PRN PRN Reason: PAIN Diphenhydramine HCl (Benadryl Po*) 25 mg PO Q6H PRN PRN Reason: ITCHING Last Admin: 04/05/17 00:56 Dose: 25 mg Divalproex Sodium (Depakote Er Tab(*)) 250 mg PO BID [facility] Fludrocortisone Acetate (Florinef Tab*) 0.1 mg PO QAM [facility] Last Admin: 04/05/17 08:32 Dose: 0.1 mg Lorazepam (Ativan Inj*) 1 mg IV Q8H PRN PRN Reason: SEE COMMENTS Nicotine (Nicotine Inhaler*) 10 mg INH Q2H PRN PRN Reason: CRAVING Last Admin: 04/05/17 04:47 Dose: 10 mg Nicotine (Nicotine Patch 14 Mg/24 Hr*) 1 patch TRANSDERM DAILY [facility] Last Admin: 04/04/17 20:42 Dose: 1 patch Pharmacy Profile Note (Nicotine Patch Removal Note*) 1 note PATCH OFF 2100 [facility] Last Admin: 04/04/17 20:42 Dose: 1 note Topiramate (Topamax(*)) 100 mg PO BID [facility] Last Admin: 04/05/17 08:32 Dose: 100 mg EMU Diagnostics - Diagnostic Most Recent Vital Signs: Vital Signs: Temp Pulse Resp BP Pulse Ox 98.1 F 86 16 106/63 99 04/05/17 08:23 04/05/17 08:23 04/05/17 08:23 04/05/17 08:23 04/05/17 08:23 Interim video-EEG long-term monitoring report: #01 04/02: PDR 8. Some occasional questionable sharp features in the right temporal region but not definitively epileptiform. EEG normal during episode of tachycardia but HR increased from a baseline of ~100 to ~140. #02 107: Similar background. No events, no seizures, no discharges. Sleep was fragmented overnight from 0300 on. #03 10: Similar background except questionable periods of intermittent rhythmic delta in the right temporal region. Did not fall asleep till 0200 then sleep was somewhat fragmented after 0500. EMU Exam - Exam Physical/Neurological Exam: Physical Exam: General: Well appearing in no acute distress. Thin. Was sleeping when I entered room, vocal stimulation to wake MSK: no extremity deformities Derm: multiple scars over upper back and hands related to previous picking behavior Neurological Exam: Mental Status: Awake and alert. Oriented to person, place, and time. Fluent but with slight speech impediment. Comprehension intact. Affect restricted. Denies hallucinations currently. Feels safe here Cranial Nerves: Visual louis full to confrontation. Pupils were equal, round, and reactive constricting from 3mm to 2mm. Versions were full and without nystagmus. Facial musculature and sensation were symmetric. Hearing grossly intact to finger rub. Palate was upgoing bilaterally. Tongue was midline. Shoulder shrug was symmetric. Motor: Bulk, tone, and strength were normal throughout. Sensory: Sensation to light touch intact. Romberg was deferred. Coordination: Finger to nose intact. Reflexes: not retested Gait: not observed. EMU Progress Note Assessment/P - Assessment/Plan Assessment: 31 year old man with history of epilepsy admitted for new onset hallucinations and paranoid ideations with the question of whether this could be jovita-ictal phenomena versus primary psychiatric disorder versus adverse medication effect. Patient currently denies hallucinations. No ictal patterns noted. Patient had one atypical event of feeling his heart racing, which was non-epileptic. No typical events recorded yet. Risperidone held x2 nights and topiramate and Depakote doses reduced. Will further reduce meds and ask patient to sleep deprive tonight. 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 If patient has a seizure and does not exhibit psychiatric symptoms afterward, then unlikely that seizures are causing his psychiatric symptoms. * sleep deprive tonight and avoid naps tomorrow * Ativan 1mg IV prn GTC
[2017-04-05] MEDS: Nicotine Patch Removal NOTE PATCH OFF SCH (20:42)
[2017-04-05] MEDS: Nicotine PATCH 14 MG/24 HR* PATCH TRANSDERM SCH (20:42)
[2017-04-05] MEDS ORDERED: Divalproex ER TAB(*) 250 MG PO SCH (21:00)
[2017-04-06] MEDS: Nicotine Inhaler* 10 MG AMP INH PRN ×2 (07:20→15:56)
[2017-04-06] MEDS: Fludrocortisone Acetate TAB* 0.1 MG PO SCH (08:56)
[2017-04-06] MEDS: Topiramate TAB(*) 100 MG PO SCH (08:57)
--- NOTE | 2017-04-06 11:16 | PN ---
Epilepsy Service Progress Note - Subjective DOS 04/06/17 Patient had 2 events yesterday. In the afternoon, he reported his heart was racing and felt worried that I was going to send him to the mental health unit. He became unresponsive for a little over 5 minutes. In the evening, he indicated he felt like he was having a seizure and endorsed his heart racing when he was directly questioned. He did not become unresponsive during this event but did not feel back to normal for about 30 minutes. His heart rate often goes into the 130s during these events but at baseline can be high as well , around 100. He denies any AH/paranoid ideations. He does not have any questions or concerns today. He sleep deprived to about 4 hours and feels tired. - Medications Active Medications: Acetaminophen (Tylenol Tab*) 650 mg PO Q6H PRN PRN Reason: PAIN Diphenhydramine HCl (Benadryl Po*) 25 mg PO Q6H PRN PRN Reason: ITCHING Last Admin: 04/05/17 00:56 Dose: 25 mg Fludrocortisone Acetate (Florinef Tab*) 0.1 mg PO QAM [facility] Last Admin: 04/06/17 08:56 Dose: 0.1 mg Lorazepam (Ativan Inj*) 1 mg IV Q8H PRN PRN Reason: SEE COMMENTS Nicotine (Nicotine Inhaler*) 10 mg INH Q2H PRN PRN Reason: CRAVING Last Admin: 04/06/17 07:20 Dose: 10 mg Nicotine (Nicotine Patch 14 Mg/24 Hr*) 1 patch TRANSDERM DAILY [facility] Last Admin: 04/05/17 20:42 Dose: 1 patch Pharmacy Profile Note (Nicotine Patch Removal Note*) 1 note PATCH OFF 2100 [facility] Last Admin: 04/05/17 20:42 Dose: 1 note Topiramate (Topamax(*)) 100 mg PO BID [facility] Last Admin: 04/06/17 08:57 Dose: 100 mg EMU Diagnostics - Diagnostic Most Recent Vital Signs: Vital Signs: Temp Pulse Resp BP Pulse Ox 97.6 F 87 18 107/73 100 04/06/17 07:21 04/06/17 07:21 04/06/17 07:35 04/06/17 07:21 04/06/17 07:21 Interim video-EEG long-term monitoring report: #01 10/6: PDR 8. Some occasional questionable sharp features in the right temporal region but not definitively epileptiform. EEG normal during episode of tachycardia but HR increased from a baseline of ~100 to ~140. No typical events, no seizures. #02 10/7: Similar background. No events, no seizures, no discharges. Sleep was fragmented overnight from 0300 on. #03 10/8: Similar background except questionable periods of intermittent rhythmic delta in the right temporal region. Did not fall asleep till 0200 then sleep was somewhat fragmented after 0500. No typical events, no seizures, no discharges. #04 10/9: Similar background with some right temporal slowing with sharp features noted during sleep in the morning on 04/05. He had 2 events, one with heart racing where he became unresponsive for about 5 minutes and one where he indicated he felt like he was having a seizure, had some heart racing but did not become unresponsive. EEG was normal during both events. No typical events, no seizures, no discharges. EMU Exam - Exam Physical/Neurological Exam: Physical Exam: General: Well appearing in no acute distress. Thin. sitting at the edge of his bed, bedside table in front of him. MSK: no extremity deformities Derm: multiple scars over upper back and hands related to previous picking behavior Neurological Exam: Mental Status: Awake and alert. Oriented to person, place, and time. Fluent but with slight speech impediment. Comprehension intact. Affect restricted. Denies hallucinations or paranoid ideations currently. Feels safe here Cranial Nerves: Visual louis full to confrontation. Pupils were equal, round, and reactive constricting from 3mm to 2mm. Versions were full and without nystagmus. Facial musculature and sensation were symmetric. Hearing grossly intact to finger rub. Palate was upgoing bilaterally. Tongue was midline. Shoulder shrug was symmetric. Motor: Bulk, tone, and strength were normal throughout. Sensory: Sensation to light touch intact. Romberg was deferred. Coordination: Finger to nose intact. Reflexes: not retested Gait: not observed. EMU Progress Note Assessment/P - Assessment/Plan Assessment: 31 year old man with history of epilepsy admitted for new onset hallucinations and paranoid ideations with the question of whether this could be jovita-ictal phenomena versus primary psychiatric disorder versus adverse medication effect. Patient currently denies hallucinations. No ictal patterns noted. Patient has had two atypical events of feeling his heart racing, and he became unresponsive during one of them. During this episode he also indicated he was worried this designer/writer would send him to the mental health unit. It is unclear if this is paranoia or just anxiety. He also had another event where he described that he felt he was having a seizure and his heart was racing. He remained responsive. These were non-epileptic. No typical events recorded yet. Risperidone is being held and topiramate and Depakote doses reduced. Depakote d/c'd PM 04/05. Patient sleep deprived last night. 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 If patient has a seizure and does not exhibit psychiatric symptoms afterward, then unlikely that seizures are causing his psychiatric symptoms. * no naps today * Ativan 1mg IV prn GTC
[2017-04-06] MEDS: Nicotine Patch Removal NOTE PATCH OFF SCH (20:31)
[2017-04-06] MEDS: Nicotine PATCH 14 MG/24 HR* PATCH TRANSDERM SCH (20:31)
[2017-04-06] MEDS: Topiramate TAB(*) 25 MG PO SCH (21:01)
[2017-04-07] MEDS: Nicotine Inhaler* 10 MG AMP INH PRN (10:18)
[2017-04-07] MEDS: Fludrocortisone Acetate TAB* 0.1 MG PO SCH (10:19)
[2017-04-07] MEDS: Topiramate TAB(*) 25 MG PO SCH ×2 (10:19→20:28)
--- NOTE | 2017-04-07 12:16 | PN ---
Epilepsy Service Progress Note - Subjective DOS 04/07/17 Patient did not have any events yesterday. He stayed up all day, did not nap. Reports having trouble sleeping last night and still feeling tired today. Denies AH/paranoid ideations. - Medications Active Medications: Acetaminophen (Tylenol Tab*) 650 mg PO Q6H PRN PRN Reason: PAIN Diphenhydramine HCl (Benadryl Po*) 25 mg PO Q6H PRN PRN Reason: ITCHING Last Admin: 04/05/17 00:56 Dose: 25 mg Fludrocortisone Acetate (Florinef Tab*) 0.1 mg PO QAM [facility] Last Admin: 04/07/17 10:19 Dose: 0.1 mg Lorazepam (Ativan Inj*) 1 mg IV Q8H PRN PRN Reason: SEE COMMENTS Nicotine (Nicotine Inhaler*) 10 mg INH Q2H PRN PRN Reason: CRAVING Last Admin: 04/07/17 10:18 Dose: 10 mg Nicotine (Nicotine Patch 14 Mg/24 Hr*) 1 patch TRANSDERM DAILY [facility] Last Admin: 04/06/17 20:31 Dose: 1 patch Pharmacy Profile Note (Nicotine Patch Removal Note*) 1 note PATCH OFF 2100 [facility] Last Admin: 04/06/17 20:31 Dose: 1 note Topiramate (Topamax(*)) 50 mg PO BID [facility] Last Admin: 04/07/17 10:19 Dose: 50 mg EMU Diagnostics - Diagnostic Most Recent Vital Signs: Vital Signs: Temp Pulse Resp BP Pulse Ox 97.4 F 83 18 110/66 100 04/07/17 08:15 04/07/17 08:15 04/07/17 08:00 04/07/17 08:15 04/06/17 19:25 Interim video-EEG long-term monitoring report: #01 10: PDR 8. Some occasional questionable sharp features in the right temporal region but not definitively epileptiform. EEG normal during episode of tachycardia but HR increased from a baseline of ~100 to ~140. No typical events, no seizures. #02 10/7: Similar background. No events, no seizures, no discharges. Sleep was fragmented overnight from 0300 on. #03 10/8: Similar background except questionable periods of intermittent rhythmic delta in the right temporal region. Did not fall asleep till 0200 then sleep was somewhat fragmented after 0500. No typical events, no seizures, no discharges. #04 10/: Similar background with some right temporal slowing with sharp features noted during sleep in the morning on 04/05. He had 2 events, one with heart racing where he became unresponsive for about 5 minutes and one where he indicated he felt like he was having a seizure, had some heart racing but did not become unresponsive. EEG was normal during both events. No typical events, no seizures, no discharges. #05 /: Similar background as above. Occasional right TIRDA. No events, no definitive discharges, no ictal patterns. EMU Exam - Exam Physical/Neurological Exam: Physical Exam: General: Well appearing in no acute distress. Thin. sleeping when I entered but woke easily to voice MSK: no extremity deformities Derm: multiple scars over upper back and hands related to previous picking behavior Neurological Exam: Mental Status: Awake and alert. Oriented to person, place, and time. Fluent but with slight speech impediment. Comprehension intact. Affect restricted. Denies hallucinations or paranoid ideations currently. Feels safe here. Wants to go home but willing to stay Cranial Nerves: Visual louis full to confrontation. Pupils were equal, round, and reactive constricting from 3mm to 2mm. Versions were full and without nystagmus. Facial musculature and sensation were symmetric. Hearing grossly intact to finger rub. Palate was upgoing bilaterally. Tongue was midline. Shoulder shrug was symmetric. Motor: Bulk, tone, and strength were normal throughout. Sensory: Sensation to light touch intact. Romberg was deferred. Coordination: Finger to nose intact. Reflexes: not retested Gait: not observed. EMU Progress Note Assessment/P - Assessment/Plan Assessment: 31 year old man with history of epilepsy admitted for new onset hallucinations and paranoid ideations with the question of whether this could be jovita-ictal phenomena versus primary psychiatric disorder versus adverse medication effect. Patient currently denies hallucinations. No ictal patterns noted. Patient has had two atypical events of feeling his heart racing, and he became unresponsive during one of them. During this episode he also indicated he was worried this health science writer would send him to the mental health unit. It is unclear if this is paranoia or just anxiety. He also had another event where he described that he felt he was having a seizure and his heart was racing. He remained responsive. These were non-epileptic. No typical events recorded yet. Risperidone is being held and topiramate and Depakote doses reduced. Depakote d/c'd PM 04/05. Patient sleep deprived 04/05. Will d/c topiramate tonight. Plan: * Continue terminal supervisor video EEG monitoring to capture typical episodes * Seizure precautions * will continue to hold risperidone and Depakote * d/c topiramate. If patient has a seizure and does not exhibit psychiatric symptoms afterward, then unlikely that seizures are causing his psychiatric symptoms. * will perform photic stimulation today * Ativan 1mg IV prn GTC
[2017-04-07] MEDS: Nicotine PATCH 14 MG/24 HR* PATCH TRANSDERM SCH (20:29)
[2017-04-07] MEDS: Nicotine Patch Removal NOTE PATCH OFF SCH (20:29)
[2017-04-08] MEDS: Fludrocortisone Acetate TAB* 0.1 MG PO SCH (10:21)
[2017-04-08] MEDS: Topiramate TAB(*) 25 MG PO SCH (10:21)
[2017-04-08] MEDS: Nicotine Inhaler* 10 MG AMP INH PRN ×2 (10:22→20:39)
--- NOTE | 2017-04-08 13:16 | PN ---
Epilepsy Service Progress Note - Subjective DOS 04/08/17 No typical events. Pt underwent photic stimulation yesterday without any events. No seizures. Patient looking forward to going home tomorrow - Medications Active Medications: Acetaminophen (Tylenol Tab*) 650 mg PO Q6H PRN PRN Reason: PAIN Diphenhydramine HCl (Benadryl Po*) 25 mg PO Q6H PRN PRN Reason: ITCHING Last Admin: 04/05/17 00:56 Dose: 25 mg Fludrocortisone Acetate (Florinef Tab*) 0.1 mg PO QAM [facility] Last Admin: 04/08/17 10:21 Dose: 0.1 mg Lorazepam (Ativan Inj*) 1 mg IV Q8H PRN PRN Reason: SEE COMMENTS Nicotine (Nicotine Inhaler*) 10 mg INH Q2H PRN PRN Reason: CRAVING Last Admin: 04/08/17 10:22 Dose: 10 mg Nicotine (Nicotine Patch 14 Mg/24 Hr*) 1 patch TRANSDERM DAILY [facility] Last Admin: 04/07/17 20:29 Dose: 1 patch Pharmacy Profile Note (Nicotine Patch Removal Note*) 1 note PATCH OFF 2100 [facility] Last Admin: 04/07/17 20:29 Dose: 1 note Topiramate (Topamax(*)) 50 mg PO BID [facility] Last Admin: 04/08/17 10:21 Dose: 50 mg EMU Diagnostics - Diagnostic Most Recent Vital Signs: Vital Signs: Temp Pulse Resp BP Pulse Ox 98.0 F 78 17 96/56 97 04/08/17 08:08 04/08/17 08:08 04/08/17 08:08 04/08/17 08:08 04/08/17 08:08 Interim video-EEG long-term monitoring report: #01 04/02: PDR 8. Some occasional questionable sharp features in the right temporal region but not definitively epileptiform. EEG normal during episode of tachycardia but HR increased from a baseline of ~100 to ~140. No typical events, no seizures. #02 10: Similar background. No events, no seizures, no discharges. Sleep was fragmented overnight from 0300 on. #03 108: Similar background except questionable periods of intermittent rhythmic delta in the right temporal region. Did not fall asleep till 0200 then sleep was somewhat fragmented after 0500. No typical events, no seizures, no discharges. #04 10/: Similar background with some right temporal slowing with sharp features noted during sleep in the morning on 04/05. He had 2 events, one with heart racing where he became unresponsive for about 5 minutes and one where he indicated he felt like he was having a seizure, had some heart racing but did not become unresponsive. EEG was normal during both events. No typical events, no seizures, no discharges. #05 /: Similar background as above. Occasional right TIRDA. No events, no definitive discharges, no ictal patterns. #06 10/: Similar background with TIRDA during drowsiness. No events. Photic negative. EMU Exam - Exam Physical/Neurological Exam: Physical Exam: General: Well appearing in no acute distress. Thin. sitting up at edge of bed, aunt in room MSK: no extremity deformities Derm: multiple scars over upper back and hands related to previous picking behavior Neurological Exam: Mental Status: Awake and alert. Oriented to person, place, and time. Fluent but with slight speech impediment. Comprehension intact. Affect restricted. Denies hallucinations or paranoid ideations currently. Feels safe here. Cranial Nerves: Visual louis full to confrontation. Pupils were equal, round, and reactive constricting from 3mm to 2mm. Versions were full and without nystagmus. Facial musculature and sensation were symmetric. Hearing grossly intact to finger rub. Palate was upgoing bilaterally. Tongue was midline. Shoulder shrug was symmetric. Motor: Bulk, tone, and strength were normal throughout. Sensory: Sensation to light touch intact. Romberg was deferred. Coordination: Finger to nose intact. Reflexes: not retested Gait: not observed. EMU Progress Note Assessment/P - Assessment/Plan Assessment: 31 year old man with history of epilepsy admitted for new onset hallucinations and paranoid ideations with the question of whether this could be jovita-ictal phenomena versus primary psychiatric disorder versus adverse medication effect. Patient currently denies hallucinations. No ictal patterns noted. Patient has had two atypical events of feeling his heart racing, and he became unresponsive during one of them. During this episode he also indicated he was worried this field underwriter would send him to the mental health unit. It is unclear if this is paranoia or just anxiety. He also had another event where he described that he felt he was having a seizure and his heart was racing. He remained responsive. These were non-epileptic. No typical events recorded yet. Risperidone is being held and topiramate and Depakote doses reduced. Depakote d/c'd PM 04/05. Patient sleep deprived 04/05. In error, topiramate was not discontinued last night and patient continued on 50mg BID. 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 If patient has a seizure and does not exhibit psychiatric symptoms afterward, then unlikely that seizures are causing his psychiatric symptoms. * Aunt and patient feel that risperidone was not helpful and he hasn't clearly worsened without it so will not restart on discharge * Ativan 1mg IV prn GTC * recommend discontinuing use of marijuana when patient goes home. Discussed possibility that it could be contributing to his psychiatric symptoms with him and his aunt.
[2017-04-08] MEDS: Nicotine PATCH 14 MG/24 HR* PATCH TRANSDERM SCH (20:35)
[2017-04-08] MEDS: Divalproex ER TAB(*) 500 MG PO SCH (20:36)
[2017-04-08] MEDS: Nicotine Patch Removal NOTE PATCH OFF SCH (20:36)
[2017-04-08] MEDS ORDERED: Topiramate TAB(*) 100 MG PO SCH (21:00)
[2017-04-09 08:00] VITALS: BP 104/61
[2017-04-09] MEDS ORDERED: Topiramate TAB(*) 100 MG PO SCH (09:00)
[2017-04-09] MEDS: Divalproex ER TAB(*) 500 MG PO SCH (10:05)
[2017-04-09] MEDS: Fludrocortisone Acetate TAB* 0.1 MG PO SCH (10:05)
--- NOTE | 2017-04-09 12:19 | PN ---
Epilepsy Service Progress Note - Subjective DOS 04/09/17 Cuco is ready to go home today. EEG has been disconnected by the time I rounded on him. He had a seizure around 5pm last evening that arose from the right temporal region and lasted a little over 4 minutes. He was unaware of the event. He has not had any psychiatric symptoms. - Medications Active Medications: Acetaminophen (Tylenol Tab*) 650 mg PO Q6H PRN PRN Reason: PAIN Diphenhydramine HCl (Benadryl Po*) 25 mg PO Q6H PRN PRN Reason: ITCHING Last Admin: 04/05/17 00:56 Dose: 25 mg Divalproex Sodium (Depakote Er Tab(*)) 500 mg PO BID [facility] Last Admin: 04/09/17 10:05 Dose: 500 mg Fludrocortisone Acetate (Florinef Tab*) 0.1 mg PO QAM [facility] Last Admin: 04/09/17 10:05 Dose: 0.1 mg Lorazepam (Ativan Inj*) 1 mg IV Q8H PRN PRN Reason: SEE COMMENTS Nicotine (Nicotine Inhaler*) 10 mg INH Q2H PRN PRN Reason: CRAVING Last Admin: 04/08/17 20:39 Dose: 10 mg Nicotine (Nicotine Patch 14 Mg/24 Hr*) 1 patch TRANSDERM DAILY [facility] Last Admin: 04/08/17 20:35 Dose: 1 patch Pharmacy Profile Note (Nicotine Patch Removal Note*) 1 note PATCH OFF 2100 [facility] Last Admin: 04/08/17 20:36 Dose: 1 note Topiramate (Topamax(*)) 200 mg PO BEDTIME [facility] Last Admin: 04/08/17 20:36 Dose: 200 mg Topiramate (Topamax(*)) 100 mg PO QAM [facility] Last Admin: 04/09/17 10:05 Dose: 100 mg EMU Diagnostics - Diagnostic Most Recent Vital Signs: Vital Signs: Temp Pulse Resp BP Pulse Ox 98.4 F 74 18 104/61 98 04/09/17 07:52 04/09/17 07:52 04/09/17 08:00 04/09/17 07:52 04/09/17 07:52 Interim video-EEG long-term monitoring report: #01 04/02: PDR 8. Some occasional questionable sharp features in the right temporal region but not definitively epileptiform. EEG normal during episode of tachycardia but HR increased from a baseline of ~100 to ~140. No typical events, no seizures. #02 10/: Similar background. No events, no seizures, no discharges. Sleep was fragmented overnight from 0300 on. #03 10/8: Similar background except questionable periods of intermittent rhythmic delta in the right temporal region. Did not fall asleep till 0200 then sleep was somewhat fragmented after 0500. No typical events, no seizures, no discharges. #04 10/: Similar background with some right temporal slowing with sharp features noted during sleep in the morning on 04/05. He had 2 events, one with heart racing where he became unresponsive for about 5 minutes and one where he indicated he felt like he was having a seizure, had some heart racing but did not become unresponsive. EEG was normal during both events. No typical events, no seizures, no discharges. #05 04/06: Similar background as above. Occasional right TIRDA. No events, no definitive discharges, no ictal patterns. #06 10/: Similar background with TIRDA during drowsiness. No events. Photic negative. #07 04/08: More frequent TIRDA during drowsiness. He had a seizure arising from the right temporal lobe around 5pm. It lasted 4.5 minutes. It was rather bland clinically, with staring and some oral automatisms. He was unaware of the seizure #08 Similar background. No events EMU Exam - Exam Physical/Neurological Exam: Physical Exam: General: Well appearing in no acute distress. Thin. Standing up, packing up his things. MSK: no extremity deformities Derm: multiple scars over upper back and hands related to previous picking behavior Neurological Exam: Mental Status: Awake and alert. Oriented to person, place, and time. Fluent but with slight speech impediment. Comprehension intact. Affect restricted. Denies hallucinations or paranoid ideations currently. Feels safe here. Cranial Nerves: Visual louis full to confrontation. Pupils were equal, round, and reactive constricting from 3mm to 2mm. Versions were full and without nystagmus. Facial musculature and sensation were symmetric. Hearing grossly intact to finger rub. Palate was upgoing bilaterally. Tongue was midline. Shoulder shrug was symmetric. Motor: Bulk, tone, and strength were normal throughout. Sensory: Sensation to light touch intact. Romberg was deferred. Coordination: Finger to nose intact. Reflexes: not retested Gait: not observed. EMU Progress Note Assessment/P - Assessment/Plan Assessment: 31 year old man with history of epilepsy admitted for new onset hallucinations and paranoid ideations with the question of whether this could be jovita-ictal phenomena versus primary psychiatric disorder versus adverse medication effect. Patient has denied hallucinations throughout admission. Patient has had two atypical events of feeling his heart racing, and he became unresponsive during one of them. During this episode he also indicated he was worried this selling underwriter would send him to the mental health unit. It is unclear if this was paranoia or just anxiety. He also had another event where he described that he felt he was having a seizure and his heart was racing. He remained responsive. These were non-epileptic. Last evening he had a right temporal seizure around 5pm. He reported no psychiatric symptoms since then. Medications were restarted at home doses except risperidone was still held. I feel it is unlikely his seizure disorder is contributing to his psychosis. I question whether marijuana use could be contributing to his paranoia Plan: * d/c LTM * continue Depakote ER 500mg BID and topiramate 100mg QAM and 200mg QPM. * Aunt and patient feel that risperidone was not helpful and he hasn't clearly worsened without it so will not restart on discharge. Advised that if paranoia returns, he should restart this medication and will need to follow with psychiatry as outpatient. * recommend discontinuing use of marijuana. Discussed possibility that it could be contributing to his psychiatric symptoms with him, his aunt and his aunt's boyfriend who arrived to pick [facility] up. * Follow up with Dr Couch
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
== END 2017-04-09 13:10 | disposition home or self-care (01) | DRG 101 ==
LOC: EMU 13:54
PROVIDERS: ADMIT Psychiatry & Neurology Neurology; ATTEND Psychiatry & Neurology Neurology
PROC: 4A10X4Z Monitoring of Central Nervous Electrical Activity, External Approach (ICD-10-PCS; principal; 2017-04-02)
DX: G40.209 Localization-related (focal) (partial) symptomatic epilepsy and epileptic syndromes with complex partial seizures, not intractable, without status epilepticus (principal); F12.90 Cannabis use, unspecified, uncomplicated; F79 Unspecified intellectual disabilities; F19.959 Other psychoactive substance use, unspecified with psychoactive substance-induced psychotic disorder, unspecified; J44.9 Chronic obstructive pulmonary disease, unspecified; F17.210 Nicotine dependence, cigarettes, uncomplicated; F41.0 Panic disorder [episodic paroxysmal anxiety]; F81.9 Developmental disorder of scholastic skills, unspecified; Z82.0 Family history of epilepsy and other diseases of the nervous system; Z72.89 Other problems related to lifestyle; Z23 Encounter for immunization
CPT/HCPCS: 36415; 80053; 80164; 80307; 80320; 80329; 81003; 81015; 84443; 85025; 90732; 93005; 95951; 99284; A9270-GY; G0480

== ENCOUNTER → 2017-05-22 21:22 | Emergency (ER) | payer MEDICARE, MEDICAID ==
[~2017-05-22 21:22] MED LIST changes: -Divalproex DR TAB(*) 500 MG PO ONE; -Nicotine PATCH 21 MG/24 HR* PATCH TRANSDERM ONE; -Topiramate TAB(*) 100 MG PO ONE
[2017-05-22 21:35] VITALS: BP 134/84
[2017-05-22 23:07] LABS: Urine Bacteria Absent (Absent); Urine Bilirubin Negative (Negative); Urine Glucose Negative (Negative); Urine Nitrite Negative (Negative)
[2017-05-22 23:08] LABS: Hematocrit 39 % (42-52); Hemoglobin 13.1 g/dl (14.0-18.0); Mean Corpuscular HGB Conc 34 g/dl (31-36); Mean Corpuscular Hemoglobin 30 pg (27-31); Mean Corpuscular Volume 89 fL (80-94); Mean Platelet Volume 7 um3 (7.4-10.4); Red Blood Count 4.39 10^6/ul (4.0-5.4); Red Cell Distribution Width 15 % (10.5-15); White Blood Count 6.6 10^3/ul (3.5-10.8)
[2017-05-22 23:12] LABS: ALT 5 U/L (7-52); AST 10 U/L (13-39); Acetaminophen < 15 mcg/mL; Albumin 4.2 g/dL (3.2-5.2); Alcohol < 10 mg/dL (<10); Alkaline Phosphatase 89 U/L (34-104); Anion Gap 9 mmol/L (2-11); BUN/Creatinine Ratio 8.3 (8-20); Blood Urea Nitrogen 5 mg/dL (6-24); CO2 Carbon Dioxide 21 mmol/L (22-32); Calcium 9.9 mg/dL (8.6-10.3); Chloride 103 mmol/L (101-111); EGFR African American 198.3 (>60); EGFR Non-African American 154.2 (>60); Globulin 3.6 g/dL (2-4); Glucose 98 mg/dL (70-100); Potassium 3.3 mmol/L (3.5-5.0); Salicylate < 2.50 mg/dL (<30); Sodium 133 mmol/L (133-145); Total Protein 7.8 g/dL (6.4-8.9)
[2017-05-22 23:14] LABS: Benzodiazepine Urine Screen None Detected (None Detect)
[2017-05-22 23:28] LABS: TSH (Thyroid Stimulating Horm) 1.32 mcIU/mL (0.34-5.60)
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
== END | disposition home or self-care (01) ==
LOC: ED 21:22
DX: F32.9 Major depressive disorder, single episode, unspecified (principal); F17.210 Nicotine dependence, cigarettes, uncomplicated
CPT/HCPCS: 36415; 80053; 80164; 80307; 80320; 80329; 81003; 81015; 84443; 85025; 99283; A9270-GY; G0480

== ENCOUNTER 2018-08-15 19:29 | Emergency (ER) | payer MEDICARE, MEDICAID ==
[2018-08-15 21:01] VITALS: BP 136/81
== END 2018-08-15 21:02 | disposition left against medical advice (07) ==
LOC: ED 19:29
DX: R42 Dizziness and giddiness (principal); Z53.21 Procedure and treatment not carried out due to patient leaving prior to being seen by health care provider
CPT/HCPCS: 99282

== ENCOUNTER 2019-05-04 14:37 | Emergency (ER) | payer MEDICARE, MEDICAID ==
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
[2019-05-04 15:38] LABS: ABS Basophils 0.1 10^3/ul (0-0.2); ABS Lymphocytes 1.4 10^3/ul (1.0-4.8); ABS Monocytes 1.2 10^3/ul (0-0.8); ABS Neutrophils 11.9 10^3/ul (1.5-7.7); Eosinophil % 0.2 %; Hematocrit 34 % (42-52); Hemoglobin 11.2 g/dL (14.0-18.0); Lymphocyte % 9.5 %; Mean Corpuscular HGB Conc 33 g/dL (31-36); Mean Corpuscular Hemoglobin 26 pg (27-31); Mean Corpuscular Volume 79 fL (80-94); Mean Platelet Volume 7.2 fL (7.4-10.4); Platelet Count 801 10^3/uL (150-450); Red Blood Count 4.34 10^6 /uL (4.18-5.48); Red Cell Distribution Width 18 % (10-15); White Blood Count 14.7 10^3/uL (3.5-10.8)
[2019-05-04 15:42] LABS: INR 1.27 (0.82-1.09)
--- OUTSIDE RECORDS SUMMARY | 2019-05-04 15:47 | XMS REPORT | Continuity of Care Document ---
:1985 External Reference #:[id number] Author Name Kyle Saenz M.D. (transmitted by agent of provider Elma Abebe) Address [address] [place] [id number] Care Team Providers Name Role Phone Butch Reyes MD - Family Medicine Care Team Information Opera Singer Joe Gerber MD - Hematology Care Team Information Opera Singer [phone] Problems Active Problems Provider Date Partial seizure evolving to secondary Hodan Couch M.D. 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 B6 Natural take one 60tabs Kyle Saenz 12/11/2018 100mg Tablets capsule/tablet M.D. daily by mouth Divalproex Sodium ER take one tab by 30tabs Kayden Vale 12/01/2018 250mg mouth at Elena Norman Tablets ER 24HR bedtime (take with 500 mg tab for a total of 750 mg at bedtime) Divalproex Sodium ER 1 tab by mouth 60tabs Kayden Vale 05/31/2012 500mg every morning Elena Norman Tablets ER 24HR and every night Proair HFA 2 puffs by Unknown 108(90Base) mouth every 4 mcg/Act Aerosol hours as needed Olanzapine one tablet at Jj Colin, 10mg Tablets bedtime Meloxicam Take One Tablet Unknown 15mg Tablets By Mouth Every Day Cyclobenzaprine HCL Take One Tablet Unknown 10mg By Mouth Three Tablets Times A Day as Needed Immunizations Description No Information Available Vital Signs Date Vital Result Comment 04/24/2019 10:00am Height 66.5 inches 5'6.50" Weight 100.00 lb Heart Rate 98 /min BP Systolic Sitting 110 mmHg BP Diastolic Sitting 77 mmHg Respiratory Rate 16 /min Pain Level 0 O2 % BldC Oximetry 99 % BMI (Body Mass Index) 15.9 kg/m2 04/06/2019 12:57pm Height 66.5 inches 5'6.50" Weight 100.50 lb Heart Rate 100 /min BP Systolic Sitting 98 mmHg Lue reg cuff BP Diastolic Sitting 76 mmHg Lue reg cuff Respiratory Rate 16 /min O2 % BldC Oximetry 94 % On Ra BMI (Body Mass Index) 16.0 kg/m2 Neck Circumference in inches 13.75 Results Test Date Facility Test Result H/L Range Note Laboratory test 04/20/2019 [facility] Erythrocyte Sed 50 mm/Hr High 0-14 [address] [place] [address] [phone] C Reactive Protein 71.90 mg/L High <8.01 2 Laboratory test 11/30/2018 [facility] Valproic Acid 72.0 Normal 50-[address] (Depakene) g/[place] [address] [phone] Topomax (Topiramate) 10.8 g/mL 3 CBC Auto 11/30/2018 [facility] White Blood 7.2 10^3/uL Normal 3.5-10.[address] [place] [address] [phone] Red Blood Count 4.58 10^6/uL Normal 4.18-5.48 Hemoglobin 12.7 g/dL Low 14.0-18.0 Hematocrit 39 % Low 42-52 Mean Corpuscular Volume 85 fL Normal 80-94 Mean Corpuscular Hemoglobin 28 pg Normal 27-31 Mean Corpuscular HGB Conc 33 g/dL Normal 31-36 Red Cell Distribution Width 16 % High 10.5-15 Platelet Count 697 10^3/uL High 150-450 Mean Platelet Volume 8.2 fL Normal 7.4-10.4 Abs Neutrophils 4.6 10^3/uL Normal 1.5-7.7 Abs Lymphocytes 1.7 10^3/uL Normal 1.0-4.8 Abs Monocytes 0.8 10^3/uL Normal 0-0.8 Abs Eosinophils 0.1 10^3/uL Normal 0-0.6 Abs Basophils 0.0 10^3/uL Normal 0-0.2 Abs Nucleated RBC 0.0 10^3/uL Granulocyte % 63.3 % Lymphocyte % 24.2 % Monocyte % 11.0 % Eosinophil % 1.0 % Basophil % 0.5 % Nucleated Red Blood Cells % 0.0 Comp Metabolic 11/30/2018 [facility] Sodium 137 mmol/L Normal 135-[address] [place] [address] [phone] Potassium 4.9 mmol/L Normal 3.5-5.0 Chloride 105 mmol/L Normal 101-111 Co2 Carbon Dioxide 22 mmol/L Normal 22-32 Anion Gap 10 mmol/L Normal 2-11 Glucose 89 mg/dL Normal 70-100 Blood Urea Nitrogen 11 mg/dL Normal 6-24 Creatinine 0.66 mg/dL Low 0.67-1.17 BUN/Creatinine Ratio 16.7 Normal 8-20 Calcium 9.8 mg/dL Normal 8.6-10.3 Total Protein 7.4 g/dL Normal 6.4-8.9 Albumin 3.9 g/dL Normal 3.2-5.2 Globulin 3.5 g/dL Normal 2-4 Albumin/Globulin Ratio 1.1 Normal 1-3 Total Bilirubin 0.30 mg/dL Normal 0.2-1.0 Alkaline Phosphatase 81 U/L Normal 34-104 Alt 5 U/L Low 7-52 Ast 10 U/L Low 13-39 Egfr Non- 137.4 >60 Egfr 166.2 >60 4 Ssa/SSB Abs Igg 11/25/2018 [facility] SS-A/Ro Antibody <0.2 U [address] [place] [address] [phone] SS-B/La Antibody <0.2 U 6 Laboratory test 11/25/2018 [facility] Lyme Screen Negative Negative finding [address] W/ [place] [address] WB [phone] Magnesium 2.0 mg/dL Normal 1.9-2.7 Thyroperoxidase AB 0.64 IU/mL Normal <9 Aso (Antistreptolysin O) Titer 400 IU/mL IU/mL Abnormal <200 Iu/mL 7 Anti Double Stranded Dna AB <12.3 IU/mL 8 Celiac Panel 11/25/2018 [facility] Tissue Transglutaminase <1.2 U/mL [address] [place] [address] [phone] Immunoglobulin A 190 mg/dL 61 - 356 Celiac Interpretation See Comment 10 Laboratory test 11/25/2018 [facility] Angiotensin 31 U/L 16 - 85 [address] [place] [address] [phone] Cryoglobulin Negative %ppt Negative 12 Creatine Kinase(CK) 41 U/L Normal 10-223 Erythrocyte Sed Rate 42 mm/Hr High 0-14 Vitamin B6 11/25/2018 [facility] Pyridoxal 2 g/L Abnormal 5- [address] [place] [place] [address] [phone] Pyridoxic Acid 2 g/L Abnormal 3-30 14 Vitamin B12 11/25/2018 [facility] Vitamin B12 698 pg/mL Normal 180-914 [address] [place] [address] [phone] Folic Acid (Folate) 9.29 ng/mL >3.99 Anca AB Ser If 11/25/2018 [facility] C-Anca Negative Negative [address] [place] [address] [phone] P-Anca Negative Negative 16 Nuclear AB 11/25/2018 [facility] Nuclear Ab Positive 1:160 Abnormal 17 (Catalina) By [employer] [address] (Catalina) by [employer], [place] [address] IgG [phone] Catalina Titer: 1:160 Catalina Pattern: Speckled 18 Laboratory test 11/25/2018 [facility] Smooth Muscle Negative Negative [address] [place] [address] [phone] Immunoglobulin G (Igg) 1660 mg/dL Abnormal 767 - 1590 20 Hepatitis C Antibody 11/25/2018 [facility] HCV Index < 0.[address] [place], [place] [address] [phone] Hepatitis C Antibody Nonreactive Nonreactive Hepatitis 11/25/2018 [facility] Hepatitis A Nonreactive Nonreactive Acute Panel [address] AB Igm [place], [place] [id number] [phone] Hepatitis B Core AB Igm Nonreactive Nonreactive Hepatitis B Surface Ag Nonreactive Nonreactive Laboratory test 11/25/2018 [facility] Cyclic 102.0 U Abnormal [address] [place] [address] Igg [phone] Hla B27 11/25/2018 [facility] Hla B27 Negative [address] [place] [address] [phone] Hla B27 Interp See Comment 23 Celiac Hla 11/25/2018 [facility] Hla-Dqa1 SEE BELOW [address] [place], [place] [id number] [phone] Hla-DQB1 SEE BELOW 25 Celiac Gene Pairs Present? No Celiac Gene Interpretation See Comment 26 1 Please check labs 2 days before follow up 2 Please check labs 2 days before follow up 3 REFERENCE VALUE Reference values depend on clinical use: Anticonvulsant: 5.0-20.0 mcg/mL Psychiatric: 2.0-8.0 mcg/mL ADDITIONAL INFORMATION This test was developed and its performance characteristics determined by [facility] in a manner consistent with CLIA requirements. This test has not been cleared or approved by the U.S. Food and Drug Administration. Test Performed by: [facility] [employer] [address] 4 Because ethnic data is not always readily available, this report includes an eGFR for both -Americans and non- Americans. The National Kidney Disease Education Program (NKDEP) does not endorse the use of the MDRD equation for patients that are not between the ages of 18 and 70, are , have extremes of body size, muscle mass, or nutritional status, or are non- or non-. According to the National Kidney Foundation, irrespective of diagnosis, the stage of the disease is based on the level of kidney function: Stage Description GFR(mL/min/1.73 m(2)) 1 Kidney damage with normal or decreased GFR 90 2 Kidney damage with mild decrease in GFR 60-89 3 Moderate decrease in GFR 30-59 4 Severe decrease in GFR 15-29 5 Kidney failure <15 (or dialysis) 5 REFERENCE VALUE <1.0 (Negative) 6 REFERENCE VALUE <1.0 (Negative) Test Performed by: [facility] [employer] [address] 7 Normal values may vary with age, season and geographic area. Titers above upper limits may be indicative of infection, however only a two dilution rise in titer is required to be considered significant. ASO titer will usually rise above upper limits within one week of exposure, increase to peak levels at 3-5 weeks and return to baseline level at 6-12 twelve months. 8 REFERENCE VALUE <30.0 (Negative) Test Performed by: [facility] [place] [address] 9 REFERENCE VALUE <4.0 (Negative) Test Performed by: [place] [address] 10 Negative serology. Celiac disease unlikely. However, approximately 10% of patients with celiac disease are seronegative. Also, patients who are already adhering to a gluten-free diet may be seronegative. If celiac disease is highly clinically suspected, consider HLA-DQ typing. Test Performed by: [place] [address] 11 Test Performed by: [address] [address] 12 This test is negative at 24 hours. All samples are held and reviewed again at 7 days. If delayed precipitation occurs after 7 days, Immunofixation will be performed and an additional report will follow. Test Performed by: [facility] [place] [address] 13 ADDITIONAL INFORMATION This test was developed and its performance characteristics determined by [facility] in a manner consistent with CLIA requirements. This test has not been cleared or approved by the U.S. Food and Drug Administration. 14 ADDITIONAL INFORMATION This test was developed and its performance characteristics determined by [facility] in a manner consistent with CLIA requirements. This test has not been cleared or approved by the U.S. Food and Drug Administration. Test Performed by: [place] [address] 15 Normal Range 180 to 914 Indeterminate Range 145 to 180 Deficient Range <145 16 Negative for cANCA and pANCA patterns by immunofluorescence. ADDITIONAL INFORMATION This test was developed and its performance characteristics determined by [facility] in a manner consistent with CLIA requirements. This test has not been cleared or approved by the U.S. Food and Drug Administration. Test Performed by: [facility] [place] [address] 17 REFERENCE VALUE <1:80 (Negative) 18 Test Performed by: [facility] [place] [address] 19 ADDITIONAL INFORMATION This test was developed and its performance characteristics determined by [facility] in a manner consistent with CLIA requirements. This test has not been cleared or approved by the U.S. Food and Drug Administration. Test Performed by: [place] [address] 20 Test Performed by: [place] [address] 21 Interpretation: Strong Positive (>=60.0) REFERENCE VALUE <20.0 (Negative) Test Performed by: [facility] [place] [address] 22 REFERENCE VALUE Not Applicable 23 RESULT: HLA-B27 antigen was not detected. ADDITIONAL INFORMATION Method: Flow Cytometry Performing Laboratory CLIA# [id number] Test Performed by: [address] [address] 24 RESULT: 01:02,01:03 REFERENCE VALUE Not Applicable 25 RESULT: 06:02,06:03 DQ Serologic Equivalent: 6,6 REFERENCE VALUE Not Applicable 26 The absence of HLA celiac permissive genes would make the presence of celiac disease unlikely. ADDITIONAL INFORMATION Method: Molecular typing of HLA antigens performed using reverse SSOP and/or SSP methods, reported as serological equivalents and low to medium resolution molecular values. Performing Laboratory CLIA# [id number] Test Performed by: [address] [address] Procedures Description No Information Available Medical Devices Description No Information Available Encounters Type Date Location Provider Dx Diagnosis Office Visit 04/06/2019 Pulmonology And Case Moore MD R91.8 Other nonspecific 1:40p Sleep Services Of abnormal finding Oracle Sql Developer of lung field Office Visit 12/22/2018 Rheumatology Kyle Saenz, R76.0 Raised antibody 10:20a Services Of Pietro Parker titer N20.0 Calculus of kidney J84.10 Pulmonary fibrosis, unspecified R70.0 Elevated erythrocyte sedimentation rate Office Visit 11/25/2018 Rheumatology Kyle R70.0 Elevated 12:00p Services Of Pietro Saenz M.D. 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 04/24/2019 R70.0 Elevated erythrocyte sedimentation rate Kyle Saenz M.D. 04/24/2019 J84.10 Pulmonary fibrosis, unspecified Kyle Saenz M.D. 04/24/2019 N20.0 Calculus of kidney Kyle Saenz M.D. 04/06/2019 R91.8 Other nonspecific abnormal finding of lung Case Moore MD [facility] 12/22/2018 R76.0 Raised antibody titer Kyle Saenz M.D. 12/22/2018 N20.0 Calculus of kidney Kyle Saenz M.D. 12/22/2018 J84.10 Pulmonary fibrosis, unspecified Kyle Saenz M.D. 12/22/2018 R70.0 Elevated erythrocyte sedimentation rate Kyle Saenz M.D. 11/25/2018 R70.0 Elevated erythrocyte sedimentation rate Kyle Saenz M.D. 11/25/2018 R76.0 Raised antibody titer Kyle Saenz M.D. 11/25/2018 R77.0 Abnormality of albumin Kyle Saenz M.D. 11/25/2018 D64.9 Anemia, unspecified Kyle Saenz M.D. 11/25/2018 M54.5 Low back pain Kyle Saenz M.D. 11/25/2018 J43.8 Other emphysema Kyle Saenz M.D. 11/25/2018 R63.4 Abnormal weight loss Kyle Saenz M.D. 11/25/2018 F17.210 Nicotine dependence, cigarettes, uncomplicated Kyle Saenz M.D. 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 at [facility]05/04/2019 2:10 pm - Case Moore MD at [facility]04/24/2019 - Kyle Saenz M.D.R76.0 Raised antibody iwtfeK33.0 Elevated erythrocyte sedimentation rateJ84.10 Pulmonary fibrosis, unspecifiedComments:1. Don??t smoke any cigarettes. Each cigarette you smoke damages your lungs, your blood vessels, andcells throughout your body. Even occasional smoking is harmful.2. Write down why you want to quit. Do you want to ??Be around for your loved ones?Have better health?Set a good example for your children?Protect your family from breathing other people??s smoke?Really wanting to quit smoking is very important to how much success you will have in quitting.3. Know that it will take commitment and effort toquit smoking. Nearly all smokers have some feelings of nicotine withdrawal when they try to quit. Nicotine is addictive.a Knowing this will help you deal with withdrawal symptoms that can occur, such as bad moods and really wanting to smoke.Your chances of quitting are better if you don't do it aloneThere are many ways smokers quit, including using nicotine replacement products (gum and patches) or FDA-approved, non-nicotine cessation medications. Some people do not experience any withdrawal symptoms. For most people, symptoms only last a few days to a couple of weeks.a Take quitting one day at a time, even one minute at a time??whatever you need to succeed.4. Get help if you want it. Smokers can receive free resources and assistance to help them quit by calling the 241- QUITNOW quitline ( ) or by visiting [facility][NOTE 3]??s Tips From Former Smokers??. Your health care providers are also a good source for help and support.Concerned about weight gain? It??s a common concern, but not everyone gains weight when they stop smoking.b Learn ways to help you control your weight as you quit smoking.5. Remember this good news! More than half of all adult smokers have quit, and you can, too.c Millions of people have learned to face life without a cigarette. Quitting smoking is the single most important step you can take to protect your health and the health of your family.Follow up :Follow up in 2 months or sooner if pzuwchI54.0 Calculus of kidney Functional Status Description No Information Available Mental Status Description No Information Available Referrals Refer to Reason for Referral Status Appt Date Suman Garza MD Please evaluate and treat nephrolithasis in Sent patient with weight loss and back pain and stone on xray [address] [place] [address] [place] [address] [phone] Josette Fritz MD Please evaluate and treatment with an elevated Sent ESR and weight loss with progressive pulmonary fibrosis [address] [place] [address] [phone]
--- OUTSIDE RECORDS SUMMARY | 2019-05-04 15:47 | XMS REPORT | Continuity of Care Document ---
:1985 External Reference #:[id number] Author Name Case Moore MD (transmitted by agent of provider Zenaida Velásquez) Address [address], [address] [place] [id number] Care Team Providers Name Role Phone Butch Reyes MD - Family Medicine Care Team Information Drapery Head Former Joe Gerber MD - Hematology Care Team Information Drapery Head Former Problems Active Problems Provider Date Partial seizure evolving to secondary Hodan Couch M.D. Onset: 2014 generalized seizure Auditory hallucinations Gilbert Jung MD Onset: 02/05/2017 Social History Type Date Description Comments Sex Unknown Tobacco Use Start: Unknown Current Cigarette Start about age 12 Smoker 1 Pack Daily Tobacco Use Start: Unknown Secondhand smoke As a child Smoking Status Reviewed: 04/06/19 Secondhand smoke As a child ETOH Use Rarely consumes alcohol Tobacco Use Start: Unknown Heavy tobacco smoker (more than 10 cigarettes/day) Recreational Drug Use Regularly uses Marijuana Exercise Type/Frequency Does not exercise Allergies, Adverse Reactions, Alerts Active Allergies Reaction Severity Comments Date Valium 10/11/2012 Dilantin 10/11/2012 Phenobarbital 08/21/2013 Seroquel 08/21/2013 Xanax 05/13/2017 Tegretol 05/13/2017 Medications Active Medications SIG Qnty Indications Ordering Date Provider Topiramate Take 1 Tablet 90tabs Kayden Vale 04/06/2019 100mg Tablets By Mouth Every Reynolds, M.D. Morning And 2 Tablets Every Night. B6 Natural take one 60tabs Kyle Saenz, 12/11/2018 100mg Tablets capsule/tablet M.D. daily by [...] hours as needed Olanzapine one tablet at Cristi Jj, 10mg Tablets bedtime Meloxicam Take One Tablet Unknown 15mg Tablets By Mouth Every Day Cyclobenzaprine HCL Take One Tablet Unknown 10mg By Mouth Three Tablets Times A Day as Needed Immunizations Description No Information Available Vital Signs Date Vital Result Comment 04/06/2019 12:57pm Height 66.5 inches 5'6.50" Weight 100.50 lb Heart Rate 100 /min BP Systolic Sitting 98 mmHg Lue reg cuff BP Diastolic Sitting 76 mmHg Lue reg cuff Respiratory Rate 16 /min O2 % BldC Oximetry 94 % On Ra BMI (Body Mass Index) 16.0 kg/m2 Neck Circumference in inches 13.75 12/22/2018 10:53am Height 66.5 inches 5'6.50" Weight 96.12 lb Heart Rate 97 /min BP Systolic Sitting 112 mmHg BP Diastolic Sitting 74 mmHg Pain Level 0 O2 % BldC Oximetry 96 % BMI (Body Mass Index) 15.3 kg/m2 Results Test Date Facility Test Result H/L Range Note Laboratory test 11/30/2018 [facility] Valproic Acid 72.0 g/mL Normal 50-[address] (Depakene) [place] [address] [phone] Topomax (Topiramate) 10.8 g/mL 1 CBC Auto 11/30/2018 [facility] White Blood 7.2 10^3/uL Normal 3.5-10.[address] [place] [address] [phone] Red Blood Count 4.58 10^6/uL Normal 4.18-5.48 [...] Blood Cells % 0.0 Comp Metabolic 11/30/2018 [facility] Sodium 137 mmol/L Normal 135-[address] [place] [address] [phone] Potassium 4.9 mmol/L Normal 3.5-5.0 Chloride 105 [...] Egfr Non- 137.4 >60 Egfr 166.2 >60 2 Ssa/SSB Abs Igg 11/25/2018 [facility] SS-A/Ro Antibody <0.2 U [address] [place] [address] [phone] SS-B/La Antibody <0.2 U 4 Laboratory test 11/25/2018 [facility] Lyme Screen Negative Negative finding [address] W/ [place] [address] WB [phone] Magnesium 2.0 mg/dL Normal 1.9-2.7 Thyroperoxidase AB 0.64 IU/mL Normal <9 Aso (Antistreptolysin O) Titer 400 IU/mL IU/mL Abnormal <200 Iu/mL 5 Anti Double Stranded Dna AB <12.3 IU/mL 6 Celiac Panel 11/25/2018 [facility] Tissue Transglutaminase <1.2 U/mL [address] [place] [address] [phone] Immunoglobulin A 190 mg/dL 61 - 356 Celiac Interpretation See Comment 8 Laboratory test 11/25/2018 [facility] Angiotensin 31 U/L 16 - [address] [place] [address] [phone] Cryoglobulin Negative %ppt Negative 10 Creatine Kinase(CK) 41 U/L Normal 10-223 Erythrocyte Sed Rate 42 mm/Hr High 0-14 Vitamin B6 11/25/2018 [facility] Pyridoxal 2 g/L Abnormal 5- [address] 5-[place] [address] [phone] Pyridoxic Acid 2 g/L Abnormal 3-30 12 Vitamin B12 11/25/2018 [facility] Vitamin B12 698 pg/mL Normal 180-914 [address] [place] [address] [phone] Folic Acid (Folate) 9.29 ng/mL >3.99 Anca AB Ser If 11/25/2018 [facility] C-Anca Negative Negative [address] [place] [address] [phone] P-Anca Negative Negative 14 Nuclear AB 11/25/2018 [facility] Nuclear Ab Positive 1:160 Abnormal 15 (Catalina) By If[employer] [address] (Catalina) by Ifa, [place] [address] IgG [phone] Catalina Titer: 1:160 Catalina Pattern: Speckled 16 Laboratory test 11/25/2018 [facility] Smooth Muscle Negative Negative [address] [place] [address] [phone] Immunoglobulin G (Igg) 1660 mg/dL Abnormal 767 - 1590 18 Hepatitis C Antibody 11/25/2018 [facility] HCV Index < 0.[address] [place] [address] [phone] Hepatitis C Antibody Nonreactive Nonreactive Hepatitis 11/25/2018 [facility] Hepatitis A Nonreactive Nonreactive Acute Panel [address] AB Igm [place], [place] [id number] [phone] Hepatitis B Core AB Igm Nonreactive Nonreactive Hepatitis B Surface Ag Nonreactive Nonreactive Laboratory test 11/25/2018 [facility] Cyclic 102.0 U Abnormal [address] [address] Igg [phone] Hla B27 11/25/2018 [facility] Hla B27 Negative [address] [place] [address] [phone] Hla B27 Interp See Comment 21 Celiac Hla 11/25/2018 [facility] Hla-Dqa1 SEE BELOW [address] [place], [place] [id number] [phone] Hla-DQB1 SEE BELOW 23 Celiac Gene Pairs Present? No Celiac Gene Interpretation See Comment 24 Iron & Iron 10/13/2018 [facility] Total Iron 295 g/dL Normal 250-[address] [place] [place] [address] Capacity [phone] Transferrin 211 mg/dL Normal 203-362 Iron < 17 g/dL Low 50-212 Unsaturated Iron Binding < 280 g/dL % Iron Saturation 6 % Low 15-55 Laboratory test 10/13/2018 [facility] Ferritin 135.2 ng/mL Normal 24-[address] [place], [place] [id number] [phone] C Reactive Protein 25.47 mg/L High <8.01 CBC Auto 10/13/2018 [facility] White Blood 12.8 10^3/uL High 3.5-10.[address] [place] [address] [phone] Red Blood Count 4.29 10^6/uL Normal 4.18-5.48 Hemoglobin 12.2 g/dL Low 14.0-18.0 Hematocrit 38 % Normal 36-46 Mean Corpuscular Volume 88 fL Normal 80-94 Mean Corpuscular Hemoglobin 29 pg Normal 27-31 Mean Corpuscular HGB Conc 33 g/dL Normal 31-36 Red Cell Distribution Width 15 % Normal 10.5-15 Platelet Count 712 10^3/uL High 150-450 Mean Platelet Volume 7.6 fL Normal 7.4-10.4 Abs Neutrophils 10.6 10^3/uL High 1.5-7.7 Abs Lymphocytes 1.4 10^3/uL Normal 1.0-4.8 Abs Monocytes 0.8 10^3/uL Normal 0-0.8 Abs Eosinophils 0 10^3/uL Normal 0-0.6 Abs Basophils 0 10^3/uL Normal 0-0.2 Abs Nucleated RBC 0 10^3/uL Granulocyte % 82.5 % Lymphocyte % 10.6 % Monocyte % 6.3 % Eosinophil % 0.3 % Basophil % 0.3 % Nucleated Red Blood Cells % 0.1 Laboratory test 10/13/2018 [facility] Erythrocyte Sed 36 mm/Hr High 0-[address] [place] [address] [phone] 1 REFERENCE VALUE Reference values depend on clinical use: Anticonvulsant: 5.0-20.0 mcg/mL Psychiatric: 2.0-8.0 mcg/mL ADDITIONAL INFORMATION This test was developed and its performance characteristics determined by [facility] in a manner consistent with CLIA requirements. This test has not been cleared or approved by the U.S. Food and Drug Administration. Test Performed by: [facility] [address] [place] [address] 2 Because ethnic data is not always readily [...] 15-29 5 Kidney failure <15 (or dialysis) 3 REFERENCE VALUE <1.0 (Negative) 4 REFERENCE VALUE <1.0 (Negative) Test Performed by: [facility] [place] [address] 5 Normal values may vary with age, season and geographic area. Titers above upper limits may be indicative of infection, however only a two dilution rise in titer is required to be considered significant. ASO titer will usually rise above upper limits within one week of exposure, increase to peak levels at 3-5 weeks and return to baseline level at 6-12 twelve months. 6 REFERENCE VALUE <30.0 (Negative) Test Performed by: [facility] [place] [address] 7 REFERENCE VALUE <4.0 (Negative) Test Performed by: [facility] [place] [address] 8 Negative serology. Celiac disease unlikely. However, approximately 10% of patients with celiac disease are seronegative. Also, patients who are already adhering to a gluten-free diet may be seronegative. If celiac disease is highly clinically suspected, consider HLA-DQ typing. Test Performed by: [facility] - [address] [address] Test Performed by: [facility] - [address] [place] [address] [address] 10 This test is negative at 24 hours. All samples are held and reviewed again at 7 days. If delayed precipitation occurs after 7 days, Immunofixation will be performed and an additional report will follow. Test Performed by: [facility] - [address] [address] 11 ADDITIONAL INFORMATION This test was developed and its performance characteristics determined by [facility] in a manner consistent with CLIA requirements. This test has not been cleared or approved by the U.S. Food and Drug Administration. 12 ADDITIONAL INFORMATION This test was developed and its performance characteristics determined by [facility] in a manner consistent with CLIA requirements. This test has not been cleared or approved by the U.S. Food and Drug Administration. Test Performed by: [facility] - [address] [address] 13 Normal Range 180 to 914 Indeterminate Range 145 to 180 Deficient Range <145 14 Negative for cANCA and pANCA patterns by immunofluorescence. ADDITIONAL INFORMATION This test was developed and its performance characteristics determined by [facility] in a manner consistent with CLIA requirements. This test has not been cleared or approved by the U.S. Food and Drug Administration. Test Performed by: [facility] - [address] [address] 15 REFERENCE VALUE <1:80 (Negative) 16 Test Performed by: [facility] - [address] [address] 17 ADDITIONAL INFORMATION This test was developed and its performance characteristics determined by [facility] in a manner consistent with CLIA requirements. This test has not been cleared or approved by the U.S. Food and Drug Administration. Test Performed by: [facility] [place] [address] 18 Test Performed by: [facility] [place] [address] 19 Interpretation: Strong Positive (>=60.0) REFERENCE VALUE <20.0 (Negative) Test Performed by: [facility] - [address] [address] 20 REFERENCE VALUE Not Applicable 21 RESULT: HLA-B27 antigen was not detected. ADDITIONAL INFORMATION Method: Flow Cytometry Performing Laboratory CLIA# [id number] Test Performed by: [facility] - [address] [place] [address] [address] 22 RESULT: 01:02,01:03 REFERENCE VALUE Not Applicable 23 RESULT: 06:02,06:03 DQ Serologic Equivalent: 6,6 REFERENCE VALUE Not Applicable 24 The absence of HLA celiac permissive genes would make the presence of celiac disease unlikely. ADDITIONAL INFORMATION Method: Molecular typing of HLA antigens performed using reverse SSOP and/or SSP methods, reported as serological equivalents and low to medium resolution molecular values. Performing Laboratory CLIA# [id number] Test Performed by: [address] [address] Procedures Description No Information Available Medical Devices Description No Information Available Encounters Type Date Location Provider Dx Diagnosis Office Visit 12/22/2018 Rheumatology Kyle Saenz R76.0 Raised antibody 10:20a [facility] [...] dependence, cigarettes, uncomplicated Office Visit 10/25/2018 3:30p [facility] Florentin Reina, G40.209 [facility] symptc [facility] [employer] epi w cmplx prt seiz,not ntrct,w/o stat epi Assessments Date Code Description Provider 04/06/2019 R91.8 Other nonspecific abnormal finding of lung Case Moore MD field 12/22/2018 R76.0 Raised antibody titer Kyle Saenz [...] NP symptomatic epilepsy Plan of Treatment Future Appointment(s):05/04/2019 2:10 pm - Case Moore MD at [facility]04/24/2019 10:00 am - Kyle Saenz M.D. at [facility]04/12/2019 2:45 pm - Kayden Norman M.D. at [facility]04/06/2019 - Case Moore, MDR91.8 Other nonspecific abnormal finding of lung fieldNew Labs:Alpha 1 Antitrypsin A1a, Ordered: New Xrays:CT Chest W/O, Ordered: 04/06/19New Orders:PFTW/Spirometry Vol Pre/ Post Bronchdilat Dlco Complete, Ordered: 04/06/19Comments:We will need to proceed with a high resolution CT of the chest and full pulmonary function test. I will review these findings. I will also check alpha-1 antitrypsin level. I think the patient will most likely need to be placed on immunosuppressive medications to treat his rheumatoid arthritis to prevent progressive pulmonary fibrosis.Follow up:1 month. Functional Status Description No Information Available Mental Status Description No Information Available Referrals Refer to Reason for Referral Status Appt Date Suman Garza MD Please evaluate and treat nephrolithasis in Sent patient with weight loss and back pain and stone on xray [address] [place] [address] [place] [address] [phone] Josette Fritz MD Please evaluate and treatment with an elevated Sent 00/ ESR and weight loss with progressive pulmonary fibrosis [address] [place] [address] [phone]
--- OUTSIDE RECORDS SUMMARY | 2019-05-04 15:47 | XMS REPORT | Continuity of Care Document ---
:1985 External Reference #:[id number] Author Name Florentin Huang NP (transmitted by agent of provider Bertha Dhillon) Address [address], [place] [address] Care Team Providers Name Role Phone Butch Reyes MD - Family Medicine Care Team Information Equipment Processer Storage Joe Gerber MD - Hematology Care Team Information Equipment Processer Storage Problems Active Problems Provider Date Partial seizure evolving to secondary Hodan Couch M.D. Onset: 2014 generalized seizure Auditory hallucinations Gilbert Jung MD Onset: 02/05/2017 Social History Type Date Description Comments Sex Unknown Tobacco Use Start: Unknown Current Cigarette Start about age 12 Smoker 1 Pack Daily Tobacco Use Start: Unknown Secondhand smoke As a child Smoking Status Reviewed: 04/25/19 Secondhand smoke As a child ETOH Use [...] 30tabs Kayden Vale 12/01/2018 250mg mouth at [facility] Norman Tablets ER 24HR bedtime (take with 500 mg tab for a total of 750 mg at bedtime) Divalproex Sodium ER 1 tab by mouth 60tabs Kayden Lacy. 05/31/2012 500mg every morning Elena Norman Tablets [...] Available Vital Signs Date Vital Result Comment 04/25/2019 3:15pm Height 66.5 inches 5'6.50" Weight 100.25 lb Heart Rate 92 /min BP Systolic 112 mmHg BP Diastolic 68 mmHg BMI (Body Mass Index) 15.9 kg/m2 04/24/2019 10:00am Height 66.5 inches 5'6.50" Weight 100.00 lb Heart Rate 98 /min BP Systolic Sitting 110 mmHg BP Diastolic Sitting 77 mmHg Respiratory Rate 16 /min Pain Level 0 O2 % BldC Oximetry 99 % BMI (Body Mass Index) 15.9 kg/m2 Results Test Date Facility Test Result H/L Range Note Laboratory test 04/20/2019 [facility] Erythrocyte Sed 50 mm/Hr High 0-14 [address] [place] [address] [phone] C Reactive Protein 71.90 mg/L High <8.01 2 Laboratory 04/20/2019 [facility] Alpha 1 216 mg/dL Abnormal 100 - 3 test finding [address] Antitrypsin A1a [address] [place] [address] [phone] Laboratory 11/30/2018 [facility] Valproic Acid 72.0 Normal 50- 100 test finding [address] (Depakene) g/[place] [address] [phone] Topomax (Topiramate) 10.8 g/mL 4 CBC Auto 11/30/2018 [facility] White Blood 7.2 10^3/uL Normal 3.5-10.[address] [place] [address] [phone] Red Blood Count 4.58 10^6/uL Normal 4.18-5.48 [...] Blood Cells % 0.0 Comp Metabolic 11/30/2018 [facility] Sodium 137 mmol/L Normal 135-[address] [place] [address] [phone] Potassium 4.9 mmol/L Normal 3.5-5.0 Chloride 105 [...] Egfr Non- 137.4 >60 Egfr 166.2 >60 5 Ssa/SSB Abs Igg 11/25/2018 [facility] SS-A/Ro Antibody <0.2 U [address] [place] [address] [phone] SS-B/La Antibody <0.2 U 7 Laboratory test 11/25/2018 [facility] Lyme Screen Negative Negative finding [address] W/ [place] [address] WB [phone] Magnesium 2.0 mg/dL Normal 1.9-2.7 Thyroperoxidase AB 0.64 IU/mL Normal <9 Aso (Antistreptolysin O) Titer 400 IU/mL IU/mL Abnormal <200 Iu/mL 8 Anti Double Stranded Dna AB <12.3 IU/mL 9 Celiac Panel 11/25/2018 [facility] Tissue Transglutaminase <1.2 U/mL [address] [place] [place] [address] [phone] Immunoglobulin A 190 mg/dL 61 - 356 Celiac Interpretation See Comment 11 Laboratory test 11/25/2018 [facility] Angiotensin 31 U/L 16 - 85 [address] [place] [address] [phone] Cryoglobulin Negative %ppt Negative 13 Creatine Kinase(CK) 41 U/L Normal 10-223 Erythrocyte Sed Rate 42 mm/Hr High 0-14 Vitamin B6 11/25/2018 [facility] Pyridoxal 2 g/L Abnormal 5- [address] 5[place] [address] [phone] Pyridoxic Acid 2 g/L Abnormal 3-30 15 Vitamin B12 11/25/2018 [facility] Vitamin B12 698 pg/mL Normal 180-914 [address] [place] [address] [phone] Folic Acid (Folate) 9.29 ng/mL >3.99 Anca AB Ser If 11/25/2018 [facility] C-Anca Negative Negative [address] [place] [address] [phone] P-Anca Negative Negative 17 Nuclear AB 11/25/2018 [facility] Nuclear Ab Positive 1:160 Abnormal 18 (Catalina) By [facility] [address] ([place]) by If[employer], [place] [address] IgG [phone] Catalina Titer: 1:160 Catalina Pattern: Speckled 19 Laboratory test 11/25/2018 [facility] Smooth Muscle Negative Negative [address] [place] [address] [phone] Immunoglobulin G (Igg) 1660 mg/dL Abnormal 767 - 1590 21 Hepatitis C Antibody 11/25/2018 [facility] HCV Index < 0.[address] [place], [place] [address] [phone] Hepatitis C Antibody Nonreactive Nonreactive Hepatitis 11/25/2018 [facility] Hepatitis A Nonreactive Nonreactive Acute Panel [address] AB Igm [place], [place] [id number] [phone] Hepatitis B Core AB Igm Nonreactive Nonreactive Hepatitis B Surface Ag Nonreactive Nonreactive Laboratory test 11/25/2018 [facility] Cyclic 102.0 U Abnormal [address] [place] [address] Igg [phone] Hla B27 11/25/2018 [facility] Hla B27 Negative [address] [place] [address] [phone] Hla B27 Interp See Comment 24 Celiac Hla 11/25/2018 [facility] Hla-Dqa1 SEE BELOW [address] [place], [place] [address] [phone] Hla-DQB1 SEE BELOW 26 Celiac Gene Pairs Present? No Celiac Gene Interpretation See Comment 27 1 Please check labs 2 days before follow up 2 Please check labs 2 days before follow up 3 Test Performed by: [facility] [address] [place] [address] Construction Operations Manager: Silvestre Machado M.D. Ph.D.; CLIA# [id number] 4 REFERENCE VALUE Reference values depend on clinical use: Anticonvulsant: 5.0-20.0 mcg/mL Psychiatric: 2.0-8.0 mcg/mL ADDITIONAL INFORMATION This test was developed and its performance characteristics determined by [facility] in a manner consistent with CLIA requirements. This test has not been cleared or approved by the U.S. Food and Drug Administration. Test Performed by: [facility] [place] [address] 5 Because ethnic data is not always readily [...] 15-29 5 Kidney failure <15 (or dialysis) 6 REFERENCE VALUE <1.0 (Negative) 7 REFERENCE VALUE <1.0 (Negative) Test Performed by: [facility] - [facility] [place] [address] 8 Normal values may vary with age, season and geographic area. Titers above upper limits may be indicative of infection, however only a two dilution rise in titer is required to be considered significant. ASO titer will usually rise above upper limits within one week of exposure, increase to peak levels at 3-5 weeks and return to baseline level at 6-12 twelve months. 9 REFERENCE VALUE <30.0 (Negative) Test Performed by: [facility] [place] [address] 10 REFERENCE VALUE <4.0 (Negative) Test Performed by: [place] [address] 11 Negative serology. Celiac disease unlikely. However, approximately 10% of patients with celiac disease are seronegative. Also, patients who are already adhering to a gluten-free diet may be seronegative. If celiac disease is highly clinically suspected, consider HLA-DQ typing. Test Performed by: [place] [address] 12 Test Performed by: [address] [address] 13 This test is negative at 24 hours. All samples are held and reviewed again at 7 days. If delayed precipitation occurs after 7 days, Immunofixation will be performed and an additional report will follow. Test Performed by: [place] [address] 14 ADDITIONAL INFORMATION This test was developed and its performance characteristics determined by [facility] in a manner consistent with CLIA requirements. This test has not been cleared or approved by the U.S. Food and Drug Administration. 15 ADDITIONAL INFORMATION This test was developed and its performance characteristics determined by [facility] in a manner consistent with CLIA requirements. This test has not been cleared or approved by the U.S. Food and Drug Administration. Test Performed by: [facility] [place] [address] 16 Normal Range 180 to 914 Indeterminate Range 145 to 180 Deficient Range <145 17 Negative for cANCA and pANCA patterns by immunofluorescence. ADDITIONAL INFORMATION This test was developed and its performance characteristics determined by [facility] in a manner consistent with CLIA requirements. This test has not been cleared or approved by the U.S. Food and Drug Administration. Test Performed by: [facility] [place] [address] 18 REFERENCE VALUE <1:80 (Negative) 19 Test Performed by: [facility] [place] [address] 20 ADDITIONAL INFORMATION This test was developed and its performance characteristics determined by [facility] in a manner consistent with CLIA requirements. This test has not been cleared or approved by the U.S. Food and Drug Administration. Test Performed by: [facility] [place] [address] 21 Test Performed by: [place] [address] 22 Interpretation: Strong Positive (>=60.0) REFERENCE VALUE <20.0 (Negative) Test Performed by: [facility] [place] [address] 23 REFERENCE VALUE Not Applicable 24 RESULT: HLA-B27 antigen was not detected. ADDITIONAL INFORMATION Method: Flow Cytometry Performing Laboratory CLIA# [id number] Test Performed by: [facility] - [address] [address] 25 RESULT: 01:02,01:03 REFERENCE VALUE Not Applicable 26 RESULT: 06:02,06:03 DQ Serologic Equivalent: 6,6 REFERENCE VALUE Not Applicable 27 The absence of HLA celiac permissive genes would make the presence of celiac disease unlikely. ADDITIONAL INFORMATION Method: Molecular typing of HLA antigens performed using reverse SSOP and/or SSP methods, reported as serological equivalents and low to medium resolution molecular values. Performing Laboratory CLIA# [id number] Test Performed by: [address] [address] Procedures Description No Information Available Medical Devices Description No Information Available Encounters Type Date Location Provider Dx Diagnosis Office Visit 04/06/2019 Pulmonology And Case Moore MD R91.8 Other nonspecific 1:40p Sleep Services Of abnormal finding Pietro of lung field Office Visit 12/22/2018 Rheumatology Kyle Saenz R76.0 Raised antibody 10:20a Services Of Pietro Parker titer N20.0 Calculus of kidney J84.10 Pulmonary fibrosis, unspecified R70.0 Elevated erythrocyte sedimentation rate Office Visit 11/25/2018 Rheumatology Kyle Simmons0.0 Elevated 12:00p Services Of Pietro Saenz M.D. 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 at [facility]05/04/2019 2:10 pm - Case Moore MD at [facility]04/25/2019 - Florentin Huang NPG40.209 Localization-related (focal) (partial) symptomatic epilepsyFollow up:SIX MONTHS Functional Status Description No Information Available Mental Status Description No Information Available Referrals Refer to Reason for Referral Status Appt Date Suman Garza MD Please evaluate and treat nephrolithasis in Sent patient with weight loss and back pain and stone on xray [address] [place] [address] [place] [address] [phone] Josette Fritz MD Please evaluate and treatment with an elevated Sent ESR and weight loss with progressive pulmonary fibrosis [address] [place] [address] [phone]
[2019-05-04 15:54] LABS: Albumin 3.7 g/dL (3.2-5.2); Albumin/Globulin Ratio 0.9 (1-3); BUN/Creatinine Ratio 18.9 (8-20); EGFR African American 212.9 (>60); EGFR Non-African American 175.9 (>60); Globulin 4.1 g/dL (2-4); Magnesium 1.9 mg/dL (1.9-2.7); Potassium 3.9 mmol/L (3.5-5.0); Total Bilirubin 0.3 mg/dL (0.2-1.0); Total Protein 7.8 g/dL (6.4-8.9)
[2019-05-04 18:14] VITALS: BP 112/73
== END 2019-05-04 18:14 | disposition home or self-care (01) ==
LOC: ED 14:37
DX: R56.9 Unspecified convulsions (principal); J44.9 Chronic obstructive pulmonary disease, unspecified; F81.9 Developmental disorder of scholastic skills, unspecified; F41.9 Anxiety disorder, unspecified; F17.210 Nicotine dependence, cigarettes, uncomplicated; Z79.899 Other long term (current) drug therapy; Z88.8 Allergy status to other drugs, medicaments and biological substances
CPT/HCPCS: 36415; 80053; 80164; 80201; 83605; 83735; 85025; 85610; 93005; 99284

== ENCOUNTER 2019-08-17 09:53 | Day surgery (SDC) | payer MEDICARE, MEDICAID ==
[~2019-08-17 09:53] MED LIST changes: +Acetaminophen TAB* 325 MG PO PRN; +Buffered Lidocaine 1% SYRIN* 1 ML/SYRINGE INTRADERM ONE; +Lactated Ringers 1000 ML Bag* 1,000 ML IV SCH; -Potassium Chlor TAB* 20 MEQ TAB.ER PO ONE
[2019-08-17] MEDS ORDERED: Acetaminophen TAB* 325 MG ONE (10:30)
[2019-08-17] MEDS ORDERED: Midazolam* 1 MG/ML 5 ML VIAL (5 MG) ONE (11:32)
[2019-08-17] MEDS ORDERED: Propofol* 10 MG/ML 20 ML BTL ONE (11:32)
[2019-08-17] MEDS ORDERED: Ondansetron INJ* 2 MG/ML VIAL ONE (11:33)
[2019-08-17] MEDS ORDERED: Lidocaine 2% PF * 5 ML VIAL ONE (11:39)
[2019-08-17 13:33] VITALS: BP 91/57
--- NOTE | 2019-08-17 16:01 | PRO ---
CC: Dr. Butch Reyes; Dr. Gerber; Dr. Saenz * DATE OF PROCEDURE: 08/17/2019 - [facility] INDICATION FOR PROCEDURE: Iron deficiency anemia, weight loss. PROCEDURE PERFORMED: Complete esophagogastroduodenoscopy with biopsies and complete colonoscopy to the terminal ileum. MEDICATIONS GIVEN: Please see anesthesia record. DESCRIPTION OF PROCEDURE: After the EGD and colonoscopy procedures, including the risks, benefits, and alternatives, with the risks not limited to perforation , surgery, missed lesions, and/or were explained to the patient, written informed consent was obtained. IV medication was given and a bite-block was placed between the teeth. The adult Olympus gastroscope was then inserted into the patient's oropharynx into the tubular esophagus. The tubular esophagus was normal in appearance with just mild GE junction changes. Biopsies were taken of this. The scope was advanced through the lower esophageal sphincter into the stomach. Direct views were normal. On retroflexion, the views were normal as well. A biopsy was taken for CLOtesting. The scope was then advanced through the widely patent pylorus into the duodenal bulb, C-loop and distal duodenum. These were normal in appearance. Given his iron deficiency anemia, biopsies were taken to rule out celiac disease. The scope was then removed from the patient. He was then rotated and given additional IV sedation medication. A rectal exam was performed. The rectal exam was unremarkable. The adult Olympus colonoscope was then inserted into the patient's rectum and advanced very carefully through the entirety of the colon into the cecal base. The cecal base was carefully inspected and normal in appearance. The terminal ileal valve was identified and intubated times 4 to 5 cm and normal. The scope was then returned to the cecum. A photograph was taken of the cecal cap. The quality of the preparation was good. Over the next eight minutes, the scope was carefully withdrawn inspecting the mucosa. The polyps, lesions, or inflammatory changes were seen. On return to the rectum, direct views were normal. On retroflexion, the views were normal as well. The scope was then removed from the patient. He tolerated the procedure well. He returned to the recovery room in stable condition. IMPRESSION: 1. Complete esophagogastroduodenoscopy with biopsies. 2. Mild GE junction variability. Otherwise normal EGD. Biopsies taken as above. 3. Complete colonoscopy to the terminal ileum. 4. Normal colonoscopy. RECOMMENDATIONS: No etiology for the patient's weight loss or iron deficiency anemia were identified today. Will plan on capsule endoscopy and pending these results, will have him follow-up with Dr. Gerber for further management. [id number]/[facility] #: [id number] CORRIE
== END 2019-08-17 13:52 | disposition home or self-care (01) ==
LOC: OR 09:53
PROVIDERS: ATTEND Internal Medicine Gastroenterology
DX: D50.9 Iron deficiency anemia, unspecified (principal); R63.4 Abnormal weight loss; Z68.1 Body mass index [BMI] 19.9 or less, adult; K20.8 Other esophagitis; J44.9 Chronic obstructive pulmonary disease, unspecified; R05 Cough; F41.9 Anxiety disorder, unspecified; M06.9 Rheumatoid arthritis, unspecified; F20.9 Schizophrenia, unspecified; F17.210 Nicotine dependence, cigarettes, uncomplicated
CPT/HCPCS: 87077; 88305; A9270-GY; J2250; J2405; J2704